=== PATIENT | male | born 1950 | race Caucasian/White ===

== ENCOUNTER → 2017-06-29 | Day surgery (SDC) | payer MEDICARE ==
[2017-06-28 10:05] VITALS: BMI 26.2
[~2017-06-29] MED LIST: Iopamidol-M 200 41% 20 ML VIAL ONE
[2017-06-29 07:20] VITALS: TEMP 97.8
--- NOTE | 2017-06-29 09:14 | RAD ---
LUMBAR SPINE SERIES FOUR VIEWS INCLUDING FLEXION AND EXTENSION: Comparison: 12-13-14 History: Back pain. FINDINGS: Dorsal column stimulator is noted. Post-operative changes with bilateral pedicle screws at L4-5 and S 1 are noted. There is retrolisthesis of L3 on L4 associated with severe degenerative disc narrowing. This retrolisthesis does not appear to change between the flexion and extension views. The overall ap pearance appears fairly stable as compared to the prior exam. IMPRESSION: Stable exam. POS: [facility]
--- NOTE | 2017-06-29 10:14 | CT ---
POST MYELOGRAM LUMBAR SPINE CT: HISTORY: Lumbar radiculopathy. Lumbar fusion. COMPARISON: None. TECHNIQUE: A lumbar spine CT is performed after intrathecal contrast administration. Sagittal and coronal refor matted images are submitted for interpretation. FINDINGS: There is an incompletely evaluated dorsal column stimulator with the leads entering the central spina l canal at approximately the T12-L1 level. There is vacuum disk phenomenon at L1-L2, L2-L3, and L3-L4. There is 1.8 mm of retrolisthesis of L1 upon L2. There is 6 mm of retrolisthesis of L3 upon L4. There is 4.4 mm of retrolisthesis of L4 upo n L5. There are bilateral transpedicular screws at L4, L5, and S1. No perihardware lucency. Bone g raft material along the posterior elements of L4, L5, and S1 are noted. There is symmetric attenuation of the psoas muscles. The visualized solid organs are unremarkable. The conus medullaris terminates at the superior aspect of L1. T12-L1: No significant central canal stenosis. The neural foramina are patent. L1-L2: Vacuum disk phenomenon. Generalized disk bulge with a component in the right subarticular zo ne. Disk material abuts but does not obscure the traversing right L2 nerve root. Moderate bilateral foraminal narrowing. Overall, there is mild central canal stenosis. L2-L3: Vacuum disk phenomenon. There is moderate to severe loss of disk space height. Generalized disk bulge, ligamentum flavum thickening, and facet hypertrophy result in moderate central canal sten osis. Moderate right and moderate to severe left foraminal narrowing. L3-L4: Vacuum disk phenomenon. Posterior decompressive laminectomy defects. There is posterior marlys ment hypertrophy, along with a generalized disk bulge, that results in moderate to severe central can al stenosis. Severe bilateral foraminal narrowing. L4-L5: There is a posterior decompressive laminectomy defect. No high grade central canal stenosis. Moderate bilateral foraminal narrowing. L5-S1: Posterior decompressive laminectomy defect. No significant posterior disk abnormality. No s ignificant central canal stenosis. Mild bilateral neural foraminal narrowing. IMPRESSION: 1. Post surgical and degenerative changes of the lumbar spine, as above. 2. There is significant central canal stenosis at the L3-L4 level. POS: [facility]
--- NOTE | 2017-06-29 10:47 | RAD ---
LUMBAR SPINE MYELOGRAM INDICATION: Low back pain, lumbar radiculopathy bilateral lower extremities. PROCEDURE: After informed consent had been obtained, the patient was escorted to the interventional suite and pl aced on the procedural table. [facility] imaging was performed. The patient was placed into a prone posi tion. Skin on the low back was then prepped and draped in the standard sterile fashion and topical a nd regional soft tissue anesthesia was achieved with 1% lidocaine and sodium bicarbonate. L4-5 left posterior paramidline approach was selected, and a 22 gauge needle was uneventfully advanced into th e thecal sac with clear color CSF. Subsequently, 10 cc Isovue M200 was instilled into the thecal sac under real time fluoroscopy. Appropriate opacification of thecal sac demonstrated with imaging stor ed for confirmation. The needle was then removed from the patient. The patient tolerated the proced ure well and was then transferred to CT to undergo subsequent myelogram. Reference separate report f or full details. RADIATION EXPOSURE DATA: Less than 0.1 minute intermittent fluoroscopy. IMPRESSION: Technically successful lumbar myelogram as detailed above. POS: [facility]
== END ==
LOC: RAD 06:56
PROVIDERS: ATTEND Surgery
PROC: B01B1ZZ Fluoroscopy of Spinal Cord using Low Osmolar Contrast (ICD-10-PCS; principal; 2017-06-29)
DX: M54.16 Radiculopathy, lumbar region (principal); M48.061 Spinal stenosis, lumbar region without neurogenic claudication; Z98.1 Arthrodesis status; Z79.82 Long term (current) use of aspirin; Z79.899 Other long term (current) drug therapy
CPT/HCPCS: 62304; 72120; 72132

== ENCOUNTER 2017-08-04 08:42 | Outpatient (CLI) | payer MEDICARE ==
[2017-08-04 10:27] LABS: Hemoglobin 14.7 g/dL (14.0-18.0); Mean Corpuscular Hemoglobin 31.8 pg (27.0-31.0); Mean Corpuscular Volume 93.6 fl (80.0-94.0); Mean Platelet Volume 6.3 fL (7.4-10.4); Platelet Count 298 thou/uL (130-400); RBC Distribution Width 12.2 % (11.5-14.5); Red Blood Cell (RBC) Count 4.64 mill/uL (4.70-6.10); White Blood Cell (WBC) Count 8.5 thou/uL (4.8-10.8)
[2017-08-04 10:33] LABS: INR-International Normal Ratio 0.9; PTT 31.4 SEC (22.9-36.1); Prothrombin Time 12.6 SEC (12.0-14.7)
[2017-08-04 10:50] LABS: Anion Gap 16 mmol/L (10-20); BUN (Urea Nitrogen) 10 mg/dL (8.4-25.7); Calc. Creatinine Clearance 0 mL/min (70-130); Calcium 9.7 mg/dL (7.8-10.44); Carbon Dioxide 23 mmol/L (23-31); Chloride 104 mmol/L (98-107); Estimated GFR-MDRD Greater than 90; Glucose 79 mg/dL (80-115); Potassium 3.5 mmol/L (3.5-5.1); Sodium 139 mmol/L (136-145)
--- NOTE | 2017-08-04 16:31 | EKG ---
Test Reason : Blood Pressure : / mmHG Vent. Rate : 071 BPM Atrial Rate : 071 BPM P-R Int : 166 ms QRS Dur : 102 ms QT Int : 400 ms P-R-T Axes : 069 003 019 degrees QTc Int : 434 ms Poor data quality, interpretation may be adversely affected Normal sinus rhythm Cannot exclude Septal infarct , age undetermined Abnormal ECG Confirmed by DOMONIQUE TOVAR ([id number]) on 08/04/2017 4:31:03 PM Referred By: BIGG Confirmed By:DOMONIQUE TOVAR
== END 2017-08-04 08:43 | disposition home or self-care (01) ==
LOC: LABBT 08:42
PROVIDERS: ATTEND Surgery
DX: Z01.818 Encounter for other preprocedural examination (principal); M48.062 Spinal stenosis, lumbar region with neurogenic claudication; M54.16 Radiculopathy, lumbar region; R94.31 Abnormal electrocardiogram [ECG] [EKG]
CPT/HCPCS: 80048; 85027; 85610; 85730; 93005; 93010

== ENCOUNTER 2017-08-09 07:33 | Day surgery (SDC) | payer MEDICARE ==
[2017-08-04 08:56] VITALS: BMI 25.8
[2017-08-09] MEDS ORDERED: CEFAZOLIN/Water 2 GM/20 ML SYRINGE ONE (09:29)
[2017-08-09] MEDS ORDERED: Midazolam HCl 2 mg/2 ml Vial ONE ×2 (10:20→12:18)
[2017-08-09] MEDS ORDERED: Fentanyl 250 MCG/5 ML VIAL ONE (12:52)
[2017-08-09] MEDS ORDERED: Phenylephrine HCL 10 MG/ML VIAL ONE (12:53)
[2017-08-09] MEDS ORDERED: Bacitracin Zinc Ointment 30 gm TUBE ONE (12:55)
[2017-08-09] MEDS ORDERED: Thrombin 5000 UNITS/5 ML VIAL ONE (12:55)
[2017-08-09] MEDS ORDERED: Sodium Chloride 0.9% 10 ML ONE (12:56)
[2017-08-09] MEDS ORDERED: Promethazine HCl 25 MG/ML VIAL IM PRN ×2 (15:09→15:41)
[2017-08-09] MEDS ORDERED: Promethazine HCl 25 MG/ML VIAL SLOW IVP PRN (15:09)
[2017-08-09] MEDS ORDERED: Ondansetron HCl/PF 4 MG/2 ML Vial IVP PRN (15:09)
[2017-08-09] MEDS ORDERED: Ondansetron HCl/PF 4 MG/2 ML Vial ONE ×2 (15:12→16:08)
[2017-08-09] MEDS ORDERED: Fleet Enema 133 ML BOT PR PRN (15:41)
[2017-08-09] MEDS ORDERED: Acetaminophen 325 MG TAB PO PRN (15:41)
[2017-08-09] MEDS ORDERED: Bisacodyl 10 MG SUPP PR PRN (15:41)
[2017-08-09] MEDS ORDERED: Mag-Al 1200 mg/1200 mg/30 ML UDCUP PO PRN (15:41)
[2017-08-09] MEDS ORDERED: Milk Of Magnesia 30 ML UDCUP PO PRN (15:41)
[2017-08-09] MEDS ORDERED: Acetaminophen/Codeine 30-300mg Tablet PO PRN (15:41)
[2017-08-09] MEDS ORDERED: HYDROcodone/Acetaminophen 7.5/325 mg Tablet PO PRN (15:41)
[2017-08-09] MEDS ORDERED: EPINEPHrine 1 MG/10 ML Abboject SYRINGE IVP PRN (15:43)
[2017-08-09] MEDS ORDERED: Fentanyl 100 MCG/2 ML VIAL ONE ×2 (15:49→16:12)
[2017-08-09] MEDS ORDERED: Lidocaine 1% PF 5 ML VIAL ONE (16:08)
[2017-08-09] MEDS ORDERED: Glycopyrrolate 0.2 MG/ML 5 ML SYRINGE ONE (16:08)
[2017-08-09] MEDS ORDERED: PHENYLEPHRINE-NS 100 MCG/ML 10 ML SYRINGE ONE (16:08)
[2017-08-09] MEDS ORDERED: PROPOFOL 200 MG/20 ML VIAL ONE (16:08)
[2017-08-09] MEDS ORDERED: Ketorolac Tromethamine 30 MG/ML VIAL ONE (16:08)
[2017-08-09] MEDS ORDERED: CEFAZOLIN/Water 2 GM/20 ML SYRINGE SLOW IVP SCH (18:00)
[2017-08-09] MEDS: HYDROcodone/Acetaminophen 10/325 mg Tablet PO PRN (18:08)
[2017-08-09] MEDS: Sodium Chloride 0.9% 1,000 ML IV SCH (18:12)
--- NOTE | 2017-08-09 19:12 | OP ---
OR: 12. WOUND TYPE: Type 1 wound. SURGEON: Campbell Kwan M.D. [employer] OPERATOR: Jose D Santana PA-C. PREPROCEDURE DIAGNOSIS: L2-L3, L3-L4 stenosis with history of multiple lumbar spine surgeries, also with spinal cord stimulator in place. POSTPROCEDURE DIAGNOSIS: L2-L3, L3-L4 stenosis with history of multiple lumbar spine surgeries, also with spinal cord stimulator in place. PROCEDURES PERFORMED: L2-L3, L3-L4 laminectomies, partial facetectomies and foraminotomies over the L2, L3, and L4 nerve roots. DESCRIPTION OF PROCEDURE: After informed consent was obtained from the patient, the patient was brou ght to OR 12. Proper patient pause and identification was carried out. He was placed in excellent g eneral endotracheal anesthesia and positioned prone on the operating room table. All appropriate poi nts were padded. The prior lumbar wound was identified in a cephalad portion of the wound. A small portion was drawn out and incorporated for the, L2, L3, L4 surgery. Following localization film and proper patient pause and identification, sterile cleansing, preparation and draping, the wound was th en opened with a combination of sharp, monopolar and blunt dissection proceeded down to the level of the spinal cord stimulator wires and leads and these were mobilized gently out of the way. There was no violation of the leads. Localization film then confirmed our area of interest following exposure of L2, L3, and L4. We then performed an L2, L3, and L4 laminectomies, partial facetectomies and for aminotomies. There was exuberant scar tissue in the region of the L3-L4. We had an excellent candi ctomy and decompression at L2-L3, L3-L4. I was pleased with our decompression. There was no spinal fluid leak. The wound was then copiously irrigated. A spinal cord stimulator wires detect, gently t ucked into a safe place to avoid any migration and the wound closed in anatomic layers following the sprinkling of vancomycin powder and hemostasis. The patient then emerged from anesthesia.
[2017-08-09] MEDS: Morphine 4 MG/ML VIAL SLOW IVP PRN ×2 (20:18→22:54)
[2017-08-09] MEDS: Simvastatin 20 MG TAB PO SCH (20:19)
[2017-08-09] MEDS: CEFAZOLIN/Water 2 GM/20 ML SYRINGE SLOW IVP SCH (21:28)
[2017-08-10] MEDS: Morphine 4 MG/ML VIAL SLOW IVP PRN ×5 (00:01→13:32)
[2017-08-10] MEDS: tiZANidine HCl 4 MG TAB PO PRN ×2 (00:02→07:49)
[2017-08-10] MEDS: traMADol HCl 50 MG TAB PO PRN (02:18)
[2017-08-10] MEDS: HYDROcodone/Acetaminophen 10/325 mg Tablet PO PRN ×2 (04:30→20:51)
[2017-08-10] MEDS: CEFAZOLIN/Water 2 GM/20 ML SYRINGE SLOW IVP SCH (05:06)
[2017-08-10] MEDS: Sodium Chloride 0.9% 1,000 ML IV SCH ×2 (05:10→09:32)
[2017-08-10] MEDS: Amlodipine 5 MG TAB PO SCH (09:30)
[2017-08-10] MEDS: Calcium Carbonate 600 MG TAB PO SCH (09:30)
[2017-08-10] MEDS: Metoprolol Tartrate 100 MG TAB PO SCH (09:31)
[2017-08-10] MEDS: Lisinopril/Hydrochlorothiazide 20 mg/12.5 mg Tablet PO SCH (09:31)
[2017-08-10] MEDS: Furosemide 20 MG TAB PO SCH (09:31)
--- NOTE | 2017-08-10 11:35 | EKG ---
Test Reason : Blood Pressure : / mmHG Vent. Rate : 082 BPM Atrial Rate : 082 BPM P-R Int : 154 ms QRS Dur : 098 ms QT Int : 366 ms P-R-T Axes : 067 023 034 degrees QTc Int : 427 ms Normal sinus rhythm Septal infarct , age undetermined Abnormal ECG When compared with ECG of 04-AUG-2017 09:38, Septal infarct is now Present Confirmed by DR. Solis PATTERSON ([id number]) on 08/10/2017 11:35:15 AM Referred By: NASRIN Confirmed By:DR. Solis PATTERSON
--- NOTE | 2017-08-10 12:00 | RAD ---
RADIOGRAPH CHEST 1 VIEW: Date: 08-10-17 Time: 9:48 a.m. HISTORY: 66-year-old male. Evaluate spinal cord stimulator lead placement. COMPARISON: 11-25-15 FINDINGS: Previously, there were double spinal cord stimulator leads with tips at the T9 level. Now, there is a single such lead with tip at the T8-9 level. Again noted are the left hilar surgical clips. Ill-defi suzan, faint, right upper lobe opacity is again noted, of uncertain etiology. Faint focal ill defined d ensities, probably chronic, also demonstrated in the right mid lung zone, and bilateral lower lung zo alfreda. No cardiomegaly or pulmonary edema. No pulmonary vascular engorgement. No pneumothorax. Image is overexposed. IMPRESSION: 1. Single dorsal column spinal cord stimulator lead at T8-9 level. 2. Right upper lobe pulmonary opacity is unchanged since 11-25-15. BRODY POS: [facility]
[2017-08-10] MEDS ORDERED: Iopamidol 300 61% 30 ML VIAL ONE (12:04)
--- NOTE | 2017-08-10 16:16 | RAD ---
FOUR VIEWS CERVICAL SPINE: 08/10/17 HISTORY: Status post laminectomy syndrome of the lumbar spine. Status post cervical fusion change. FINDINGS: There is an anterior fusion plate with transvertebral body screw at C4, C5, C6, and C7. There is fusi on of the C4-C5, C5-C6, and C6-C7 disc space. Mild to moderate degenerative changes of the cervicotho racic junction is noted. There is anterolisthesis of C3 upon C4 with prominent anterior osteophyte formation. No obvious fract ures. There is diffuse bone demineralization. Left greater than right facet hypertrophy noted at the upper cervical spine. 2.6 mm of anterolisthesis of C3 upon C4 in the neutral position. Upon flexion there is 4.7 mm of ante rolisthesis of C3 upon C4. Upon extension, there is 2.7 mm of anterolisthesis of C3 upon C4. IMPRESSION: 1. Diffuse bone demineralization. 2. Anterolisthesis of C3 upon C4 with significant motion upon flexion and extension. 3. Cervical fusion changes as described above. POS: [facility]
--- NOTE | 2017-08-10 16:40 | CT ---
CT CERVICAL SPINE WITH CONTRAST (CT CERVICAL MYELOGRAM): DATE: 08-10-17 History: 66-year-old male with cervical spondylosis and signs of cervical spinal cord compression. FINDINGS: Anterior metallic plate and screws at C4, C5, C6 and C7. Solid successful ankylosis between the verte bral bodies from C4 through C7. C1-2: No high grade central stenosis. C2-3: Thickened ligamentum flavum encroaches upon the posterior aspect of the spinal canal. Shallow, broad-based anterior extradural soft tissue density material mildly encroaches upon the anterior aspe ct of the thecal sac. Overall moderate central spinal canal stenosis. Moderate to severe right degene rative facet changes. Severe left degenerative facet changes. Moderate right neural foraminal stenosi s. Moderate to severe left neural foraminal stenosis. Disc space maintained. C3-4: Disc space maintained. Grade I anterolisthesis of C3 on C4 due to bilateral degenerative facet disease, mild to moderate on the right, and severe on the left. Diffuse disc bulge posteriorly displa abisai, and flattens the spinal cord, causing severe central canal stenosis. Moderate sized bilateral un cinate process osteophytes and bilateral facet hypertrophy, result in severe bilateral neural foramin al stenosis, right worse than left. C4-5: No high grade central stenosis. No right neural foraminal stenosis. Moderate left neural forami nal stenosis. Essentially normal right facet joint except for small osseous bridges across the joint space. Severe hypertrophy of the left facet complex which has solid ankylosis. C5-6: No central stenosis. Bilateral uncinate process osteophytes, moderately large on the right and moderate on the left. Moderate to severe bilateral neural foraminal stenosis, left worse than right. Essentially normal bilateral facet joints except for small osseous bridges across the joint space. C6-7: Small left paracentral focal extradural density indents the left ventral aspect of the thecal s ac. Although it does not contact the spinal cord, the left ventral aspect of the spinal cord is nadia ened. The overall degree of central spinal canal stenosis is mild. Moderate sized bilateral uncinate process osteophytes. Moderate to severe bilateral neural foraminal stenosis. Mild bilateral degenerat lisa facet changes. Small osseous bridges across the bilateral facet joints. C7-T1: Moderate disc space narrowing. Severe bilateral degenerative facet changes cause a grade I ant erolisthesis of C7 on T1. This spondylolisthesis, together with thickened ligamentum flavum and broad based disc bulge result in moderate to severe central spinal canal stenosis. There is effacement of fat in the bilateral neural foramina, which could be due to scar tissue or lateral disc herniations. This results in severe bilateral neural foraminal stenosis. The degree of bony neural foraminal steno sis is moderate on the right and severe on the left. IMPRESSION: 1. Status post anterior cervical discectomy and fusion with successful ankylosis at C4-5-6-7. 2. At C3-4 there is severe left degenerative facet hypertrophy causing grade I spondylolisthesis, plu s diffuse disc bulge, causing severe central spinal canal stenosis, flattening the spinal cord. 3. Severe bilateral facet osteoarthrosis and moderate degenerative disc disease at C7-T1, with a grad e I spondylolisthesis, with associated moderate to severe central spinal canal stenosis, and severe b ilateral neural foraminal stenosis, including soft tissue density material in the bilateral neural fo ramina which could be scar tissue or lateral disc herniations. 4. Other levels of severe facet osteoarthrosis, especially on the left side. POS: [facility]
--- NOTE | 2017-08-10 18:19 | CT ---
CT THORACIC SPINE WITH CONTRAST (CT thoracic myelogram) 08/10/17 HISTORY: 66-year-old male with thoracic spine pain. Symptoms of cord compression. FINDINGS: ACDF hardware at multiple levels in the cervical spine, with the lowest anterior screws at C7. Thorac ic vertebral body heights are maintained. At C7-T1, there is severe bilateral degenerative facet disease causing grade I anterolisthesis of C7 on T1. There is moderate to severe central spinal canal stenosis at C7-T1. There is complete oblitera tion of the bilateral C7-T1 neural foraminal fat, which could be due to disc herniations and/or scar tissue. No high grade central spinal canal stenosis is identified from T1-2 through T9-10. Small focal disc p rotrusions are present at various levels encroaching upon the anterior aspect of the spinal canal lef t paracentrally and right paracentrally at various levels. At T10-11, there is mild to moderate thecal sac stenosis due to soft tissue density material in the a nterior epidural space centrally and bilaterally paracentrally. At T11-12, there is also moderate thecal sac stenosis due to soft tissue density material in the post erior epidural space and anterior epidural space. At T12-L1, there is also moderate thecal sac stenosis due to soft tissue density material in the ante rior epidural space and posterior epidural space. At L1-2, there is severe thecal sac stenosis due to what appears to be prominent diffuse disc bulge a nd ligamentum flavum thickening, with severe partial effacement of CSF signal, incompletely imaged. There is no high grade bony central spinal canal stenosis at any level. There are dorsal column spinal cord stimulator double leads entering the spinal canal at T12-L1, and ascending to the T8 level. IMPRESSION: 1. Severe bilateral facet osteoarthrosis, grade I spondylolisthesis, and degenerative disc disea se, at C7-T1, where there is severe bilateral neural foraminal stenosis and moderate to severe centra l spinal canal stenosis. 2. Severe central spinal canal stenosis at L1-2 in the upper lumbar spine, incompletely imaged. 3. Mild to moderate thecal sac stenosis (but no bony central spinal canal stenosis) at several l evels in the lower thoracic spine. 4. Spinal cord stimulator leads. 5. No high grade central spinal canal stenosis in the rest of the thoracic spine. POS: [facility]
--- NOTE | 2017-08-10 18:28 | RAD ---
MYELOGRAM CERVICAL MYELOGRAM THORACIC: 08/10/17 HISTORY: 66-year-old male with signs of cervical spinal cord compression and thoracic spine pain. TECHNIQUE: Signed informed consent obtained. Patient placed prone on fluoroscopy table. Skin over lower back pre pped and draped in the usual sterile fashion. 25 gauge needle used to apply buffered lidocaine superf icially and deeply. 22 gauge spinal needle advanced from midline approach through the laminectomy def ect at L4-5. Total of 10 mL of Isovue M300 injected intrathecally under brief, intermittent fluorosco py. Needle removed. Although the patient tolerated the needle placement and the thecal contrast injec tion well, the patient was in severe pain from lying prone for the duration of the procedure. The tab le was tilted prone Trendelenburg, to allow the contrast material to flow into the thoracic spinal ca nal and cervical spinal canal. Patient was then taken to CT. No complications. IMPRESSION: 1. Successful myelogram. 2. See separate reports of the thoracic spine and cervical spine myelograms. POS: [facility]
--- NOTE | 2017-08-10 19:58 | PRG ---
DATE OF SERVICE: 08/10/2017 Jose D Santana PA-C dictating for Dr. Campbell Kwan. Mr. Marin is now postoperative day #1, having undergone L2 to L4 laminectomy. The patient has spi nal cord stimulator placed and throughout the evening has had supposed misfirings of his stimulator r esulting in significant mid upper back pain, neck pain, bilateral arm pain in a nondermatomal distrib ution and chest pain. EKG was done that showed stable septal infarct of unknown age. When asked abo ut pain symptoms, he stated that this happened roughly an hour after the surgery while he was in the recovery room. In regards to the patient's back and bilateral lower extremity symptoms, he states th at these are significantly improved postoperatively. He states he felt much stronger on 2 nodes in t he shock-like sensations. He is very pleased with his outcome postoperatively. He has good strength in the bilateral lower extremities and he is able to walk with a non-antalgic gait while leaning on an IV pole. We have been in contact with the patient's spinal cord stimulator wrapped and will work on attempting to remedy that. We have attempted to turn off his spinal cord stimulator, but this has been unhelpful in relieving his symptoms. We will also discuss his case with Dr. Deshawn Santoyo. It should be noted that this is a late dictation. The patient was actually seen this morning at 7: 30 a.m.
[2017-08-10] MEDS: Simvastatin 20 MG TAB PO SCH (20:51)
[2017-08-11] MEDS: Morphine 4 MG/ML VIAL SLOW IVP PRN (01:44)
--- NOTE | 2017-08-11 02:29 | CON ---
DATE OF CONSULTATION: 08/10/2017 ROOM #: [id number] CONSULTING PHYSICIAN: Dr. Campbell Kwan. REASON FOR CONSULTATION: Spinal cord stimulation, malfunction. HISTORY OF PRESENT ILLNESS: Patient is a 66-year-old patient known to me from an outpatient clinic a nd implantation of spinal cord stimulation system in 2016 for post-laminectomy syndrome. The stimula tor was efficacious. Over the ensuing 2 years, he developed significant stenosis discovered by lumba r myelogram showing severe L2-L4 stenosis, and yesterday, the patient had a decompressive laminectomy by Dr. Campbell Kwan. The next day postoperatively and noted in the recovery room was increased ting ling and shock-like sensations across his upper back and this was thought to be due to firing of his spinal cord stimulation system. A small business sales representative was called, the stimulator was interrogated and tho ught to shut off, but these sensations persisted. The patient was sent down to my office and the sys tem was examined under fluoroscopic guidance and the patient was examined. On questioning, he states that the sensations are actually primarily in the upper chest and clavicle region. They radiate gali n both the arms and it occurs primarily when he turns his head from [id number] or particularly when he looks up. Indeed, he can only assume a neutral position and any extension at all increases the s hocking-like sensation. These sensations are not in the thoracic area typical for a spinal cord stim ulation system implanted for back and bilateral lower extremity pain. PAST MEDICAL HISTORY: Significant for numerous lumbar spine surgeries and an extensive C5 through C7 fusion by Dr. Junior Desouza many years ago. SOCIAL HISTORY: Long time smoker, but abstained for unknown period of time about 5 years. REVIEW OF SYSTEMS: Negative for recent nausea, vomiting, fever, or chills. The patient is status po st laminectomy. PHYSICAL EXAMINATION: GENERAL: The patient is alert and oriented. He was transferred to my suite in a wheelchair, but was able to ambulate. We were able to transport him or transfer him to the floor table, but during this time, he had several of these shock-like sensations noted in his chief complaint. He was placed pro ne. Examination of the spinal cord stimulation under fluoroscopic guidance revealed the right lead t o have migrated caudally and the left lead to be at the junction of T7-T8, which is a physiologic loc ation and proper location for spinal cord stimulation achieving stimulation in the back and bilateral legs. The right leg lead has migrated caudally. Best I can tell on the fluoroscopic images, all wi res in the system were intact on the fluoroscopic visualization with no obvious ligation of the spina l cord stimulation, electrode arrays, or any of the wires. Then sat the patient up and completed the examination with sitting. A cervical spine was examined. He has palpable tenderness throughout the cervical spine, paraspinous is especially in the upper cervical spine region. There is trapezius an d levator tenderness bilaterally. The range of motion is severely limited due to the shock-like sens ations. Lhermitte's is negative; however, extension of the cervical spine and indeed even assuming a neutral position causes the shock-like sensation suggestive of spinal cord impingement in the cervic al spine region. Reflexes were 2+ throughout the cervical spine. Lopez's is negative. CHEST: The patient's chest exam reveals no palpable tenderness throughout the chest or chest wall. Chest was clear. HEART: Regular. ABDOMINAL EXAM: Soft, nontender, nondistended. BACK EXAM: The dressing over the laminectomy was noted. It was not removed and the incision was not examined. EXTREMITIES: Lower extremity reflexes were 1/4. There was no clonus. No focal deficits. IMPRESSION: 1. Spinal cord impingement, cervical spine. I believe this is the source of the patient's tingling sensation and indeed it likely has nothing to do with the spinal cord stimulation system. 2. Lead migration of his spinal cord stimulation system. The right lead has migrated caudally. I b elieve the system should be interrogated and assessed again for proper programming. I did discuss wi th the patient regarding the efficacy of this spinal cord stimulation and he insisted that it was a " lifesaver for him." We will therefore make every attempt to make it usable or revise it if necessary . PLAN: The patient will need a cervical and thoracic spine imaging, myelogram is indicated. I did di scuss with Dr. Kwan, who recommends cervical and thoracic myelogram with thoracic plain imaging to evaluate possible abnormal motion, especially above the level of his fusion. Further recommendations after review of his imaging. No medication changes were made.
[2017-08-11] MEDS: Sodium Chloride 0.9% 1,000 ML IV SCH ×2 (06:18→20:45)
[2017-08-11 08:28] LABS: BUN (Urea Nitrogen) 7 mg/dL (8.4-25.7); Calc. Creatinine Clearance 127 mL/min (70-130); Estimated GFR-MDRD Greater than 90
[2017-08-11] MEDS: tiZANidine HCl 4 MG TAB PO PRN ×3 (08:57→23:42)
[2017-08-11] MEDS: traMADol HCl 50 MG TAB PO PRN ×3 (08:58→23:41)
[2017-08-11] MEDS: Furosemide 20 MG TAB PO SCH (09:00)
[2017-08-11] MEDS: Amlodipine 5 MG TAB PO SCH (09:00)
[2017-08-11] MEDS: Calcium Carbonate 600 MG TAB PO SCH (09:00)
[2017-08-11] MEDS: Lisinopril/Hydrochlorothiazide 20 mg/12.5 mg Tablet PO SCH (09:00)
[2017-08-11] MEDS: Metoprolol Tartrate 100 MG TAB PO SCH (09:01)
--- NOTE | 2017-08-11 10:34 | CT ---
CT CHEST WITH IV CONTRAST: Date: 08/11/17 HISTORY: Lung mass. Previous lung cancer. COMPARISON: Chest radiograph dated 08/10/17. PET scan dated 09/22/10. FINDINGS: Centered at the anterior aspect of the right upper lobe is a lobulated, heterogeneous soft tissue den sity mass measuring 3.5 cm length x 5.8 cm width x 3.6 cm depth. It demonstrates spiculated margins w ith small satellite lesions and abuts the anterior and superior pleura. A 1.5 cm oval nodule is prese nt within the superior segment right lower lobe. Lungs are hyperinflated. Scarring is present at each lung base. Tiny patchy nodular opacity is presen t at the left posterolateral lung base. Subcarinal lymph node measures up to 1.1 cm. Right hilar lymph node is 1.5 cm greatest diameter. Aly tional smaller lymph nodes are scattered about the mediastinum. There is calcification in the arteria l structures. Bovine origin of the great vessels from the aortic arch. Prominent degenerative changes lumbar spine. IMPRESSION: 1. Large, spiculated right upper lobe mass with satellite lesions. Main mass abuts the anterior and apical pleura. Recurrent neoplasm is the favored diagnosis. Please consider pulmonary medicine evalua tion. 2. Small, hazy nodular densities involving each lower lobe. 3. While the detailed mediastinal lymph nodes are not overtly enlarged, they are significantly large r than prior PET scan from 09/22/10, and neoplastic involvement is suspected. 4. Atherosclerosis. POS: [facility]
[2017-08-11] MEDS: HYDROcodone/Acetaminophen 10/325 mg Tablet PO PRN ×2 (11:17→20:45)
--- NOTE | 2017-08-11 12:25 | PRG ---
DATE OF SERVICE: 08/11/2017 SUBJECTIVE: Mr. Marin is postoperative day #2 from uneventful lumbar laminectomy L2-L4. He has a history of multiple spinal surgeries and a spinal cord stimulator in place. Yesterday, the patient noticed that he was having electrical shocks essentially into the chest region in the upper extremiti es. These would come in at intermittent periods that were not overtly predictable although following evaluation with Dr. Santoyo, he was concerned that perhaps the patient had a component of cervic al myelopathy and this was brought on when he basically cervically flexed or extended. The patient h as a history of prior C4-C7 fusion. No abnormal position issues during surgery and the patient was k ept in his normal position prone in regards to his cervical spine and again his surgery was uneventfu l. I also identified at the time of surgery, his spinal cord stimulator wires and these were protect ed and gently tucked to the left as I completed the L2-L3, L3-L4 laminectomies. Nevertheless, due to concern of the patient's these electrical sensations he was having and given the fact that he was al ready mobilizing and had complete relief of his leg pain. I felt as if the surgery was a success; ariana rothman, again Dr. Santoyo and I were concerned was a spinal cord stimulator not working or perhaps was there is evidence of cervical stenosis. As such, we arranged for a CT myelogram of the cervical and thoracic spine and it demonstrated that compared to 2016, two spinal cord stimulator leads remai suzan extradural. One remained at approximately T8, the other at T11 and had inferiorly migrated. Thi s could have been during the surgery or could have been at any time over the last 2 years, but still would result in low back and leg coverage. The spinal cord stimulator was interrogated by [employer] and he stated he was unable to turn it off. Dr. Santoyo felt that perhaps stimu lator was working fine, but that the patient's electrical sensations were coming from cervical stenos is in fact cervical myelogram demonstrated fusion from C4-C7 but moderate to severe stenosis at C3-C4 and moderate stenosis at C7-T1. There was also an associated subluxation. It was quite mild at C3- C4. We placed the patient in collar and the patient states since the myelogram he has had no further electrical shocks, but now he feels as if his legs are weaker. I suspect this is due to just the my elogram and essentially injecting dye into recent operated and compressed nerve roots. I do not susp ect that this is worsening of the myelopathy necessarily. We will interrogate the stimulator more to day and unfortunately the patient was found to have a large mass in his right upper lobe and he is go ing for CT scan today as well. He has a history a partial lobectomy and obviously the concern here i s recurrent neoplasm. We will continue to mobilize the patient, keep him in a C-collar at this point .
[2017-08-11] MEDS ORDERED: ISOVUE-370 76%-LOCM 1 ML ONE (13:21)
[2017-08-11] MEDS: Simvastatin 20 MG TAB PO SCH (20:45)
[2017-08-12] MEDS: Morphine 4 MG/ML VIAL SLOW IVP PRN ×2 (02:00→07:22)
[2017-08-12] MEDS: HYDROcodone/Acetaminophen 10/325 mg Tablet PO PRN ×2 (03:38→10:02)
[2017-08-12] MEDS: Furosemide 20 MG TAB PO SCH (10:01)
[2017-08-12] MEDS: tiZANidine HCl 4 MG TAB PO PRN (10:01)
[2017-08-12] MEDS: Amlodipine 5 MG TAB PO SCH (10:01)
[2017-08-12] MEDS: Lisinopril/Hydrochlorothiazide 20 mg/12.5 mg Tablet PO SCH (10:02)
[2017-08-12] MEDS: Metoprolol Tartrate 100 MG TAB PO SCH (10:02)
[2017-08-12] MEDS: Calcium Carbonate 600 MG TAB PO SCH (10:02)
[2017-08-12] MEDS: Sodium Chloride 0.9% 1,000 ML IV SCH (13:45)
[2017-08-12 15:26] VITALS: BP 139/68; TEMP 98
--- NOTE | 2017-08-12 20:42 | PRG ---
DATE OF SERVICE: 08/12/2017 SUBJECTIVE: Mr. Marin is postoperative day #3 from lumbar laminectomy. We also obtained a CT mye logram of the cervical and thoracic spine and he has moderate to severe stenosis at C3-C4 and moderat e stenosis at C7-T1. There is a listhesis at C3-C4 that may contribute to increased stenosis, althou gh the patient states that the dysesthesias in the electrical shocks that he had into his neck and up per extremities and thorax has essentially resolved. He is in a collar and he feels this is fitting well. His strength is good in his upper and lower extremities and he states the pain that he had in his legs yesterday likely due to the myelogram dye, irritating his nerve roots, causing a radiculitis has improved. He has a right upper lung mass and we have consulted Pulmonary Medicine. If they are not able to see him today, then we have to arrange some sort of an outpatient follow up with him. T his is obviously likely a lung cancer. He has a history of a prior left-sided partial lobectomy for lung cancer. No longer smokes. We will dismiss him today.
--- NOTE | 2017-08-12 20:50 | CON ---
DATE OF CONSULTATION: 08/12/2017 SERVICE: Pulmonary Medicine. REASON FOR CONSULTATION: Pulmonary mass. HISTORY OF PRESENT ILLNESS: The patient is a 66-year-old white male with past medical history significant for nonsmall cell lung cancer on the left. He underwent a lobectomy. This was multiple years ago. He returned to his usual state of health, but always had a little bit of dyspnea when getting around. That being said, he is not requiring any oxygen. He was in the hospital for chronic pain issues. He had a problem with the stimulator. This problem has been corrected. On the imaging that occurred during the hospital stay, there is incidentally discovered right upper lobe pulmonary mass which has never been investigated previously. He denies any cough, changes to his weight, night sweats. He is not bringing up any sputum and does not report any hemoptysis within the last year. PAST MEDICAL HISTORY: 1. Hypertension. 2. Dyslipidemia. 3. Benign prostate hyperplasia. 4. History of nonsmall cell lung cancer. 5. Coronary artery disease. PAST SURGICAL HISTORY: 1. Lumbar surgery x3. 2. Spinal cord stimulator placement. 3. Lobectomy on the left for nonsmall cell lung cancer. ALLERGIES: No known drug allergies. MEDICATIONS: List of his inpatient medications were reviewed. No specific updates were made. FAMILY HISTORY: Noncontributory. SOCIAL HISTORY: He quit smoking roughly 2 years ago. Prior to that, he has a greater than [id number] history of smoking. He is . He denies any alcohol or illicit drugs. He has no exposure to chemicals, dust, asbestos or tuberculosis. REVIEW OF SYSTEMS: General, head, ears, eyes, nose, throat, cardiovascular, respiratory, GI, , musculoskeletal, neurologic and skin is negative except as mentioned in the HPI. PHYSICAL EXAMINATION: VITAL SIGNS: Afebrile, pulse 77, blood pressure 97/57, respirations 16, saturation 93% on room air. GENERAL: The patient is awake, alert, in no apparent distress. LUNGS: Excellent air entry with no prolonged expiratory phase, wheezing, rhonchi, or crackles present. HEART: Normal rate, regular. ABDOMEN: Soft, nontender, nondistended. Bowel sounds are positive. MUSCULOSKELETAL: No cyanosis or clubbing. There is trace pitting in the bilateral lower extremities. NEUROLOGIC: Grossly nonfocal. LABORATORY DATA: WBC 8.5, hemoglobin 14.7, platelets 298,000. INR 0.9. Basic metabolic profile is unremarkable. Creatinine 0.65. IMAGIN. CT of the chest demonstrates findings consistent with previous lobectomy on the left. There is a right upper lobe mass with multiple satellite lesions and mediastinal lymph nodes that are enlarged in a nearly pathologic way. Atherosclerosis is present. ASSESSMENT: 1. Pulmonary mass. 2. Chronic obstructive pulmonary disease. 3. History of nonsmall cell lung cancer, status post lobectomy, several decades ago. PLAN: The patient will undergo IR guided biopsy. I offered to leave him in the hospital until this can be arranged, but he preferred to go home. As such, he will be scheduled for some time over the next 1-2 weeks. He will return to see me in clinic roughly 2-3 days after this can be arranged. From a lung perspective, the patient can be discharged from the hospital. Pulmonary will continue to follow, intermittently if he remains in house. 70 minutes have been devoted to this patient in various activities. I personally reviewed all imaging studies and laboratory data noted within this document. For fifty percent of this time, I was interacting with the patient at the bedside or coordinating care with the care team. For the remainder of the time I was immediately available to the patient in the hospital unit. BOO
== END 2017-08-12 16:30 | disposition home or self-care (01) ==
LOC: SDC 07:33 → SURG B 15:40 → SDC 08-12 16:30
PROVIDERS: ATTEND Surgery
PROC: 01NB0ZZ Release Lumbar Nerve, Open Approach (ICD-10-PCS; principal; 2017-08-09)
DX: M48.061 Spinal stenosis, lumbar region without neurogenic claudication (principal); Z98.890 Other specified postprocedural states
CPT/HCPCS: 62305; 63047; 63048 ×2; 71045; 71260; 72050; 72126; 72129; 76001; 82565; 84520; 93005; 96374; 97116; 97139; G8978; G8979; G8980; 36415; 93010; A4216; J0131; J1885; J2001; J2250; J2270; J2370; J2405; J2704; J3010; J3370; J3490

== ENCOUNTER → 2017-08-22 | Day surgery (SDC) | payer MEDICARE ==
[2017-08-19 09:22] VITALS: BMI 26.6
--- NOTE | 2017-08-22 13:14 | RAD ---
PORTABLE AP CHEST: Date: 08-22-17 History: Post right lung biopsy. Comparison: 08-10-17 FINDINGS: The right upper lobe mass is better delineated on today's examination. There is no pneumothorax or pl eural effusions seen on the right. Post-surgical change on the right related to cervical fusion are n oted. There are post-surgical changes left hemithorax with scarring again present at the left lung mi dzone and left lung base. Dorsal column stimulator leads noted in place. Cardiac silhouette and pulmo nary vasculature are within normal limits. IMPRESSION: 1. Right upper lobe mass like opacity without evidence of a pneumothorax. 2. Post-surgical changes left hemithorax with scarring at the left lung base and left midlung zone. POS: [facility]
--- NOTE | 2017-08-22 14:09 | CT ---
CT GUIDED PERCUTANEOUS BIOPSY OF RIGHT UPPER LOBE MASS: Date: 08/22/17 HISTORY: Patient with history of prior non-small cell lung cancer involving the left hemithorax with remote hi story of partial left pneumonectomy. Patient how has mass in right upper lobe. Biopsy was requested. TECHNIQUE: The procedure, including risks and complications, were explained to the patient and informed consent was obtained. The patient was placed on the CT scan table in the supine position. Limited noncontrast ed CT scan was obtained through the right upper lobe with grid localizer in place. Skin and subcutane ous soft tissues were infiltrated with buffered 1% lidocaine for local anesthesia at the intended pun cture site located at the lateral right upper chest. Small skin incision was made. A 19 gauge guide needle was advanced, followed by three axial noncontrasted CT images. This was repea pranav until the needle was placed just within the mass in the right upper lobe. Three [address] images were obtained confirming placement of the needle just within the peripheral aspect of the right upper lobe mass. Utilizing coaxial technique, a total of two 20 gauge core needle biopsy specimens were obtained. Spec imens were evaluated by pathology and initial preliminary report noted malignancy on the provided spe cimens. The inner stylette was replaced, and the needle was removed. Follow-up CT scan examination wa s performed, which demonstrated no evidence of a pneumothorax. Adjacent patchy parenchymal changes ar e seen in the right upper lobe related to a small amount of hemorrhage due to recent biopsy. There is volume loss in the visualized left hemithorax related to patient's history of prior partial left pneumonectomy. Follow-up chest x-ray demonstrated no evidence of a pneumothorax. The patient tolerated the procedure without immediate complication. The patient was transported to [facility] nurse's holding area for further monitoring prior to discharge. A repeat chest x-ray will be obtained 2 hours from the initial chest x-ray. IMPRESSION: 1. Right upper lobe mass. 2. Technically successful CT guided percutaneous biopsy of right upper lobe mass. Final pathology is currently pending. Preliminary results indicate malignancy. 3. Small amount of hemorrhage adjacent to the mass at the site of biopsy. No pneumothorax is seen po st biopsy. POS: [facility]
--- NOTE | 2017-08-22 14:38 | RAD ---
TWO VIEWS CHEST INSPIRATORY AND EXPIRATORY RADIOGRAPHS: History: Lung mass. Date: 08-22-17 Comparison: Two views chest, earlier in the day. FINDINGS: There is an ill-defined density in the right upper lobe. No evidence of post biopsy pneumothorax is s een. Pulmonary vascular congestion is seen. IMPRESSION: No evidence of post procedure pneumothorax. POS: [facility]
== END ==
LOC: CT 08:42
PROVIDERS: ATTEND Internal Medicine
PROC: 0BDC4ZX Extraction of Right Upper Lung Lobe, Percutaneous Endoscopic Approach, Diagnostic (ICD-10-PCS; principal; 2017-08-22)
DX: C34.11 Malignant neoplasm of upper lobe, right bronchus or lung (principal); I10 Essential (primary) hypertension; E78.5 Hyperlipidemia, unspecified; N40.0 Benign prostatic hyperplasia without lower urinary tract symptoms; I25.10 Atherosclerotic heart disease of native coronary artery without angina pectoris; J44.9 Chronic obstructive pulmonary disease, unspecified; Z79.82 Long term (current) use of aspirin; Z79.899 Other long term (current) drug therapy; Z88.8 Allergy status to other drugs, medicaments and biological substances; Z90.2 Acquired absence of lung [part of]; Z87.891 Personal history of nicotine dependence
CPT/HCPCS: 32405; 71045; 77012; 88305; 88333; 88341; 88342

== ENCOUNTER 2017-08-24 12:34 | Observation (INO) | payer MEDICARE ==
[2017-08-24] MEDS ORDERED: EPINEPHrine 1 MG/10 ML Abboject SYRINGE ONE (12:40)
[2017-08-24] MEDS ORDERED: EPINEPHrine 1 MG/ML AMP ONE (12:41)
[2017-08-24] MEDS ORDERED: methylPREDNISolone Sod Succ/PF 125 MG/2 ML VIAL ONE (12:47)
[2017-08-24 13:44] LABS: #Basophils 0.1 thou/uL (0.0-0.2); #Eosinphils 0.3 thou/uL (0.0-0.7); #Lymphocytes 2.4 thou/uL (1.20-3.40); #Monocytes 0.8 thou/uL (0.11-0.59); #Neutrophils 5.1 thou/uL (1.40-6.50); %Basophils 0.8 % (0.0-1.0); %Eosinophils 3.4 % (0.0-10.0); %Lymphocytes 27.5 % (21.0-51.0); %Monocytes 8.8 % (0.0-10.0); %Neutrophils 59.5 % (42.0-75.0); Hemoglobin 13.7 g/dL (14.0-18.0); Mean Corpuscular HGB CONC 32.7 g/dL (32.0-36.0); Mean Corpuscular Hemoglobin 30.5 pg (27.0-31.0); Mean Corpuscular Volume 93.2 fl (80.0-94.0); Platelet Count 547 thou/uL (130-400); RBC Distribution Width 12.1 % (11.5-14.5); White Blood Cell (WBC) Count 8.5 thou/uL (4.8-10.8)
[2017-08-24] MEDS ORDERED: Famotidine/PF 20 mg/2ml Vial SLOW IVP SCH (13:45)
[2017-08-24 14:16] LABS: ALT (SGPT) 25 U/L (8-55); AST (SGOT) 29 U/L (5-34); Albumin 4.3 g/dL (3.4-4.8); Alkaline Phosphatase 140 U/L (40-150); Anion Gap 13 mmol/L (10-20); BUN (Urea Nitrogen) 10 mg/dL (8.4-25.7); Bilirubin, Total 0.5 mg/dL (0.2-1.2); CK (CPK) 35 U/L (30-200); Calc. Creatinine Clearance 0 mL/min (70-130); Calcium 10.2 mg/dL (7.8-10.44); Carbon Dioxide 28 mmol/L (23-31); Chloride 99 mmol/L (98-107); Estimated GFR-MDRD Greater than 90; Globulin 3.6 g/dL (2.4-3.5); Glucose 91 mg/dL (80-115); Magnesium 1.7 mg/dL (1.6-2.6); Potassium 4.1 mmol/L (3.5-5.1); Protein, Total 7.9 g/dL (5.8-8.1); Sodium 136 mmol/L (136-145)
[2017-08-24 14:20] LABS: CKMB 1.1 ng/mL (0-6.6); Troponin I Less than 0.010 ng/mL (< 0.028)
--- NOTE | 2017-08-24 14:24 | RAD ---
PORTABLE CHEST: HISTORY: Shortness of breath. COMPARISON: 08/22/17. FINDINGS: Opacity in the right upper lung consistent with the known right upper lung masses. Lung bonilla other sheldon appear clear of infiltrate with no evidence of interval change noted. No pneumothorax identifie d. Heart and mediastinum unremarkable. IMPRESSION: No acute change from the prior exam of 08/22/17. POS: [facility]
[2017-08-24] MEDS ORDERED: Ondansetron ODT 4 MG TAB PO PRN (16:04)
[2017-08-24] MEDS ORDERED: Acetaminophen 325 MG TAB PO PRN (16:04)
[2017-08-24] MEDS ORDERED: diphenhydrAMINE 25 MG CAP PO PRN (16:04)
[2017-08-24] MEDS ORDERED: Zolpidem Tartrate 5 MG TAB PO PRN (16:04)
--- NOTE | 2017-08-24 16:50 | HP ---
PRIMARY CARE PROVIDER: Dr. Senait Parker. HISTORY: Patient is referred to the [facility] [place] [facility] with oral angioedema, caused by lisino pril. His mouth and chin started swelling this morning. He has had really minimal shortness of moon th. No dysphagia. He was seen in followup for another problem by Dr. Fitzgerald and sent to the emergen cy room. He has no respiratory distress, no stridor. No dizziness. No skin reaction. PAST MEDICAL HISTORY: Pertinent for hypertension, dyslipidemia, benign prostatic hyperplasia, histor y of nonsmall cell lung cancer, history of coronary artery disease. PAST SURGICAL HISTORY: He has had a C-spine surgery in the past with an anterior plate. He has had lumbar surgery x3. He has had a ganglion cyst removed from his left wrist. He has had his surgery o n his left forearm for torn tendons and muscles. He has had a surgery of right ankle for fracture, b ilateral cataract surgeries. He currently has neurological symptoms from his C-spine and is in [facility]. He had a lung biopsy 08/22/2017 and his last L-spine surgery was 08/09/2017. CURRENT MEDICATIONS: Zocor 20 mg a day, metoprolol 100 mg a day, aspirin 81 mg a day, Norvasc 5 mg a day, tizanidine 4 mg b.i.d. p.r.n., lisinopril HCT 20/12.5 one a day, hydrocodone 10/325 one p.o. da paul p.r.n. for pain, Lasix 20 mg a day. He has an EpiPen. He takes calcium carbonate 600 mg a day. ALLERGIES: He is apparently allergic to LISINOPRIL. No other allergies. FAMILY HISTORY: Mother , she had breast cancer, lung cancer and liver cancer. Father is d with brain cancer. He has 1 sister with cancer. SOCIAL HISTORY: , FULL CODE. next of kin. Quit smoking two and a half years ago, drink s 2-3 bourbon drinks a day. REVIEW OF SYSTEMS: General: He has had a headache off and on for 3-4 weeks on the right frontal tem poral area. He states he has occasional blurred vision. No double vision, flashing lights. ENT: N o ear pain or drainage. He does have loud tinnitus, no nasal bleeding. No trouble swallowing. Card iac: No chest pain, orthopnea or paroxysmal nocturnal dyspnea. Respiratory: No cough. He has a cough in the mornings. No wheezing, no history of asthma. Gastrointestinal: He has occasional diarrhea. He has occasional nausea and vomiting 2-3 times a mon th. No blood in his emesis, no melena. Genitourinary: No hematuria or dysuria. Musculoskeletal: No swelling except occasionally in his feet. He has chronic pains. Psychiatric: No specific muscle pains. Neurologic: No strokes, seizures or focal weakness. Psychiatric: No anxiety or depression . Heme/Lymph: No tender or swollen lymph nodes in axilla, inguinal or cervical area. Skin: He bru ises easily. No chronic rash. PHYSICAL EXAMINATION: GENERAL: Alert, oriented and cooperative. VITAL SIGNS: Blood pressure 146/84, pulse 80, respirations 16, temperature 98. HEENT: Reveal pupils equal, round, and reactive to light. Extraocular movements are intact. Sclera e white. Tympanic membranes are clear. Nose is clear. Oral mucous membranes are wet. NECK: He has a neck brace on and had him take it off. There is no jugular venous distention, adenop athy or thyromegaly. There is no stridor across his neck. CHEST: Clear to auscultation and percussion. HEART: Regular rate and rhythm. First and second heart sounds are clear. There are no murmurs, no gallops. ABDOMEN: Soft, bowel sounds are normal. There is no hepatosplenomegaly, no mass, no rebound. EXTREMITIES: Reveal no cyanosis, clubbing or edema. PULSES: Carotid, radial, femoral, and dorsalis pedis pulses are palpable and symmetric. SKIN: Warm and dry without bruises or rash. HEME/LYMPH: Revealed no tender or swollen lymph nodes in axilla, inguinal or cervical area. NEUROLOGICAL: Cranial nerves II through XII are intact. Deep tendon reflexes symmetric. LABORATORY AND X-RAY FINDINGS: Chest x-ray, right upper lobe mass consistent with prior x-ray, no ev idence of CHF or infiltrate, reviewed by me. No EKG is presented. I will seek for one. White cell count 8.5, hemoglobin 13.7, and platelet count 547,000. Comp metabolic profile is normal. Cardiac e nzymes normal x1. ADMITTING DIAGNOSES: 1. Angioedema, most likely secondary to DOMINGO inhibitor with no evidence of respiratory distress, stri opal, anaphylaxis, etc. 2. Post-lung biopsy for a mass in the chest, diagnosis, adenocarcinoma. 3. Right upper lobe mass. 4. Hypertension. 5. Diabetes mellitus. 6. Elevated cholesterol. 7. Multiple spinal surgery procedures. 8. Right-sided headaches. PLAN: Patient has received Pepcid and 125 of Solu-Medrol in the ER. We will continue Pepcid 20 q.12 hours. Add Benadryl 25 p.o. q.6 hours p.r.n. I suspect this will resolve overnight. Because of hi s headaches, I have ordered erythrocyte sedimentation rate Dr. Ernestine Travis will be consulted as jayson bustillos is sending him to the ER, his home medicines will be continued amlodipine, statin, metoprolol. His lisinopril will of course be held.
[2017-08-24 18:29] VITALS: BMI 24.8
[2017-08-24] MEDS: Famotidine/PF 20 mg/2ml Vial SLOW IVP SCH (20:53)
[2017-08-24] MEDS ORDERED: Atorvastatin Calcium 10 MG TAB PO SCH (21:00)
[2017-08-25 05:08] VITALS: TEMP 97.7
[2017-08-25 05:25] LABS: #Lymphocytes 0.8 thou/uL (1.20-3.40); #Monocytes 0.4 thou/uL (0.11-0.59); #Neutrophils 6.8 thou/uL (1.40-6.50); %Basophils 0.3 % (0.0-1.0); %Eosinophils 0.4 % (0.0-10.0); %Lymphocytes 10.2 % (21.0-51.0); %Monocytes 4.5 % (0.0-10.0); %Neutrophils 84.7 % (42.0-75.0); Hemoglobin 13.2 g/dL (14.0-18.0); Mean Corpuscular HGB CONC 33.2 g/dL (32.0-36.0); Mean Corpuscular Hemoglobin 30.8 pg (27.0-31.0); Mean Corpuscular Volume 92.6 fl (80.0-94.0); Platelet Count 496 thou/uL (130-400); Red Blood Cell (RBC) Count 4.29 mill/uL (4.70-6.10); White Blood Cell (WBC) Count 8.1 thou/uL (4.8-10.8)
[2017-08-25 05:38] LABS: Anion Gap 13 mmol/L (10-20); BUN (Urea Nitrogen) 12 mg/dL (8.4-25.7); Calc. Creatinine Clearance 124 mL/min (70-130); Calcium 9.6 mg/dL (7.8-10.44); Carbon Dioxide 25 mmol/L (23-31); Chloride 100 mmol/L (98-107); Estimated GFR-MDRD Greater than 90; Glucose 155 mg/dL (80-115); Potassium 3.9 mmol/L (3.5-5.1); Sodium 134 mmol/L (136-145)
--- NOTE | 2017-08-25 07:10 | PDOC.PN ---
- Subjective Encounter Start Date: 08/25/17 Encounter Start Time: 07:09 Subjective: no sob, facial swelling decreased - Objective MAR Reviewed: Yes Vital Signs & Weight: Vital Signs (12 hours) Temp Pulse Resp BP Pulse Ox 08/25/17 03:59 97.7 F 80 20 151/77 H 97 08/24/17 23:36 98 F 96 18 143/74 H 97 08/24/17 20:53 97.6 F 81 18 I&O: 08/24/17 08/25/17 08/26/17 06:59 06:59 06:59 Intake Total 340 Balance 340 Result Diagrams: 08/25/17 04:01 08/25/17 04:01 Phys Exam - Physical Examination Neck: no JVD no stridor Respiratory: clear to auscultation bilateral Cardiovascular: RRR, no significant murmur Gastrointestinal: soft, positive bowel sounds Musculoskeletal: no edema, edema present Dx/Plan (1) Angioedema due to angiotensin converting enzyme inhibitor (DOMINGO-I) Code(s): T78.3XXA - ANGIONEUROTIC EDEMA, INITIAL ENCOUNTER; T46.4X1A - POISONING BY [id number] INHIBITORS, ACC, INIT Status: Acute (2) HTN (hypertension) Code(s): I10 - ESSENTIAL (PRIMARY) HYPERTENSION Status: Chronic Qualifiers: Hypertension type: essential hypertension Qualified Code(s): I10 - Essential (primary) hypertension (3) Dyslipidemia Code(s): E78.5 - HYPERLIPIDEMIA, UNSPECIFIED Status: Chronic (4) Recurrent lung adenocarcinoma Code(s): C34.90 - MALIGNANT NEOPLASM OF UNSP PART OF UNSP BRONCHUS OR LUNG Status: Acute Qualifiers: Laterality: right Qualified Code(s): C34.91 - Malignant neoplasm of unspecified part of right bronchus or lung - Plan improved, discuss with Dr Sinha * .
[2017-08-25] MEDS: Famotidine/PF 20 mg/2ml Vial SLOW IVP SCH (08:56)
[2017-08-25] MEDS ORDERED: Metoprolol Tartrate 100 MG TAB PO SCH (09:00)
[2017-08-25] MEDS ORDERED: Amlodipine 5 MG TAB PO SCH (09:00)
[2017-08-25 11:10] VITALS: BP 164/76
--- NOTE | 2017-08-25 11:19 | DIS ---
DATE OF ADMISSION: 08/24/2017 DATE OF DISCHARGE: 08/25/2017 PRIMARY CARE PROVIDER: Senait Parker D.O. DISCHARGE DISPOSITION: Home. FINAL DIAGNOSES: Angioedema secondary to DOMINGO inhibitor, hypertension, adenocarcinoma of the lung, ri ght upper lobe, dyslipidemia. DISCHARGE MEDICATIONS: Same as his home medicines except his lisinopril has been held, tizanidine 4 mg twice a day p.r.n., Zocor 20 mg a day, hydrocodone 10/325 one q.6 hours p.r.n., Lasix 20 mg a day, metoprolol 100 mg a day, aspirin 81 mg a day, Norvasc 5 mg and the addition of prednisone 40 mg a da y for 5 days. ALLERGIES: DOMINGO INHIBITORS and LISINOPRIL specifically. PENDING AT TIME OF DISCHARGE: Nothing. CODE STATUS: FULL. HOSPITAL COURSE: The patient admitted to [facility] with swelling in his lips, chin, and cheeks. No swelling in his tongue. He had 2 previous episodes for which he sought care. He has been on lisinopril all this time. He had no stridor. He was given high dose steroids and in the emergency room, he had a recent biopsy which is positive for lung cancer. Dr. Sinha saw him an d has arranged followup with himself. Patient's edema is markedly decreased a day. He has no strido r, no shortness of breath. Vital signs are stable. He is agreeable with going home. He is being di scharged to follow up with his PCP in 1 week for adjustment of blood pressure medicines to follow up with Dr. Sinha per his directions. CBC x2 is unremarkable except for the first one that has hemogl obin of 13.7; second one 13.1. Comp metabolic profile is normal. Cardiac enzymes were normal. Ches t x-ray was clear. PROCEDURES: None. STATUS AT THE TIME OF DISCHARGE: Good. DIET: Heart healthy.
== END 2017-08-25 11:35 | disposition home or self-care (01) ==
LOC: ERS 12:34 → 2SW 18:10
PROVIDERS: ADMIT Internal Medicine; ATTEND Internal Medicine
DX: T78.3XXA Angioneurotic edema, initial encounter (principal); T46.4X5A Adverse effect of angiotensin-converting-enzyme inhibitors, initial encounter; I10 Essential (primary) hypertension; E78.5 Hyperlipidemia, unspecified; N40.0 Benign prostatic hyperplasia without lower urinary tract symptoms; I25.10 Atherosclerotic heart disease of native coronary artery without angina pectoris; E11.9 Type 2 diabetes mellitus without complications; E78.00 Pure hypercholesterolemia, unspecified; C34.91 Malignant neoplasm of unspecified part of right bronchus or lung; Z87.891 Personal history of nicotine dependence; Z79.82 Long term (current) use of aspirin; Z79.899 Other long term (current) drug therapy
CPT/HCPCS: 71045; 80048; 80053; 82550; 82553; 83735; 84484; 85025 ×2; 85652; 86850; 86900; 86901; 96372; 96374; 96375; 96376 ×2; 99291; G0378; 36415; J0171; J2930; S0028

== ENCOUNTER 2017-09-08 11:44 | Outpatient (CLI) | payer MEDICARE ==
--- NOTE | 2017-09-08 15:28 | PET ---
PET CT: INDICATION: Diagnosis code R91.1. Initial staging for lung cancer. TECHNIQUE: PET CT images were obtained from the skull base to the mid thighs. 11.8 mCi of F18-FDG IV was utiliz ed for the examination. CT images were obtained for attenuation correction purposes only. COMPARISON: Comparisons were made with the prior PET CT evaluation dated 09/22/10 and a prior stone protocol CT of the abdomen and pelvis dated 05/25/[address] of the chest dated 08/11/17. FINDINGS: The biodistribution for the examination appears acceptable. HEAD AND NECK: No hypermetabolic lymphadenopathy or mass is identified in the head and neck region. THORAX: Corresponding to the large right upper lobe mass seen on the comparison evaluation is a 6.1 cm hyperm etabolic lesion that abuts the anterior wall of the right upper hemithorax. The peak SUV uptake is 5 .47 with a mean uptake of 4.58. There is a spiculated nodule within the posterior segment of the right upper lobe measuring 1.7 cm wi th a peak uptake of 1.4 and a mean uptake of 1.31. There is a nodular opacity measuring up to 1.47 cm within the medial segment of the right middle lobe with peak uptake of 1.18 and mean value of 1.11. There are 2 separate pulmonary nodules within the left lower lobe measuring 6 mm apiece with peak upt taiwo of 1.0 for a mean uptake of 0.99. There is postsurgical change of a left upper lobectomy. There is severe emphysema. No hypermetabolic lymphadenopathy is present. There are coronary artery thora cic aorta calcifications. ABDOMEN AND PELVIS: No hypermetabolic lymphadenopathy, mass, or ascites is present. SKIN AND OSSEOUS STRUCTURES; NO hypermetabolic skin or osseous lesion is identified. IMPRESSION: Abnormal PET CT. 1. There is a large hypermetabolic right upper lobe mass that corresponds to the patient's known mal ignancy. There are numerous scattered pulmonary nodules within both lungs, 1 within the posterior se gment of the right upper lobe, another within the medial segment of the right middle lobe, and 2 smal l pulmonary nodules within the left lower lobe. These do not demonstrate hypermetabolic uptake. How ever, due to the morphology and the fact that these lesions are new, this is suspicious for metastati c disease. Would recommend a short-term CT followup of the thorax to confirm this. 2. No evidence of distant metastatic disease within the abdomen and pelvis or skin and osseous struc tures. POS: [facility]
== END 2017-09-08 11:45 | disposition home or self-care (01) ==
LOC: PET 11:44
PROVIDERS: ATTEND Internal Medicine
DX: C34.91 Malignant neoplasm of unspecified part of right bronchus or lung (principal); R91.8 Other nonspecific abnormal finding of lung field
CPT/HCPCS: 78815; A9552

== ENCOUNTER 2017-09-19 09:24 | Outpatient (CLI) | payer MEDICARE ==
--- NOTE | 2017-09-19 11:14 | RAD ---
CERVICAL SPINE 5 VIEWS INCLUDING FLEXION AND EXTENSION LATERAL VIEWS: HISTORY: A 66-year-old male with a history of cervical spine pain with numbness and shooting pain between cyst and shoulders. The patient was recently diagnosed with stage IV lung cancer. COMPARISON: 08/10/17. FINDINGS: Anterior cervical fusion changes at C4, C5, C6, and C7. Mild anterolisthesis of C3 on C4. There is slight worsening of the anterior listhesis with flexion relative to extension. No abnormal preverteb ral soft tissue swelling. C1 and C2 are partially obscured on the AP open mouth view and C7-T1 is pa rtially obscured on the lateral view. IMPRESSION: Anterior cervical fusion changes at C4 through C7. Minimal anterolisthesis of C3 on C4 with possible mild anterior translation. Little change from prior study. No new process. POS: [facility]
== END 2017-09-19 09:25 | disposition home or self-care (01) ==
LOC: TBSIIMAG 09:24
PROVIDERS: ATTEND Surgery
DX: M54.5 Low back pain (principal); Z98.1 Arthrodesis status; M43.12 Spondylolisthesis, cervical region
CPT/HCPCS: 72050

== ENCOUNTER 2017-10-28 06:55 | Emergency (ER) | payer MEDICARE ==
[2017-10-28 07:41] LABS: Bilirubin Negative (Negative); Blood, Urine Negative (Negative); Clarity CLEAR (Clear); Glucose, Urine (Dipstick) Negative (Negative); Leukocyte Negative (Negative); Nitrite Negative (Negative); Protein, Urine (Dipstick) Negative (Neg-Trace); Specific Gravity, Urine 1.006 (1.002-1.036); Urobilinogen 0.2 mg/dL (0.2-1.0)
[2017-10-28] MEDS ORDERED: Ketorolac Tromethamine 60 MG/2 ML VIAL ONE (08:05)
== END 2017-10-28 08:52 | disposition home or self-care (01) ==
LOC: ERS 06:55
DX: G89.29 Other chronic pain (principal); M54.5 Low back pain; E78.5 Hyperlipidemia, unspecified; I10 Essential (primary) hypertension; E78.1 Pure hyperglyceridemia; Z87.891 Personal history of nicotine dependence; Z79.899 Other long term (current) drug therapy
CPT/HCPCS: 81003; 96372; J1885

== ENCOUNTER 2017-10-31 12:35 | Outpatient (CLI) | payer MEDICARE ==
--- NOTE | 2017-10-31 14:02 | RAD ---
RIGHT HIP TWO VIEWS: History: Hip pain. Osteoarthritis. FINDINGS: Femoral head contour is normal. Minimal spurring from the femoral head. Joint space appears maintaine d. No fracture or acute lesion. IMPRESSION: Evidence of mild osteoarthritic change. POS: [facility]
== END 2017-10-31 12:36 | disposition home or self-care (01) ==
LOC: RAD 12:35
PROVIDERS: ATTEND Anesthesiology Pain Medicine
DX: M19.90 Unspecified osteoarthritis, unspecified site (principal); M16.11 Unilateral primary osteoarthritis, right hip

== ENCOUNTER 2017-11-11 08:09 | Outpatient (CLI) | payer MEDICARE ==
--- NOTE | 2017-11-11 10:45 | CT ---
LUMBAR SPINE CT WITHOUT CONTRAST: HISTORY: Previous surgery. Lumbar radiculopathy. Pain radiating down the left and right legs. COMPARISON: 06/29/2017 TECHNIQUE: A CT of the lumbar spine was performed without intravenous or intrathecal contrast administration. S agittal and coronal reformatted images were submitted for interpretation. FINDINGS: Redemonstration of bilateral transpedicular screws at L4, L5, and S1. There is 7 mm of retrolisthesi s of L3 upon L4. There are posterior decompressive laminectomy defects at L3, L4, and L5. A dorsal column stimulator is noted, incompletely evaluated. With regard to the posterior fusion screws, there is no perihardware lucency. Vacuum disk phenomenon at L1-L2, L2-L3, and L3-L4. The retroperitoneal structures are unremarkable. The visualized solid organs are unremarkable. Atherosclerosis of a nonaneurysmal aorta. Limited evaluation of the contents of the central spinal canal and the neural foramina due to techniq ue. T11-T12/T12-L1: No high grade central canal stenosis. The neural foramina are patent bilaterally. L1-L2: Vacuum disk phenomenon. Generalized disk bulge results in mild central canal stenosis. Mode rate bilateral foraminal narrowing. L2-L3: Posterior decompression. Generalized disk bulge with vacuum disk phenomenon. At least mild central canal stenosis. Moderate bilateral foraminal narrowing. L3-L4: Vacuum disk phenomenon. Generalized disk bulge and posterior element hypertrophy is suggeste d. Posterior decompression is noted. There appears to be at least moderate central canal stenosis. Moderate to severe bilateral foraminal narrowing. L4-L5: Generalized disk bulge with central disk protrusion. Posterior decompression. At least mild central canal stenosis. Moderate bilateral foraminal narrowing. L5-S1: Posterior decompression. No significant stenosis of the thecal sac. Moderate right and mild to moderate left foraminal narrowing. IMPRESSION: Redemonstration of postoperative and degenerative changes of the lumbar spine. When compared to the previous examination, which was a post myelogram CT, the overall degree of central canal stenosis and foraminal narrowing has not changed. There is still moderate central canal stenosis at L3-L4, which is better demonstrated on the post myelogram CT performed in June 2017. POS: [facility]
== END 2017-11-11 08:10 | disposition home or self-care (01) ==
LOC: TBSIIMAG 08:09
PROVIDERS: ATTEND Anesthesiology Pain Medicine
DX: M47.26 Other spondylosis with radiculopathy, lumbar region (principal); M48.061 Spinal stenosis, lumbar region without neurogenic claudication; M99.83 Other biomechanical lesions of lumbar region; Z98.890 Other specified postprocedural states
CPT/HCPCS: 72131

== ENCOUNTER 2017-12-09 08:53 | Outpatient (CLI) | payer MEDICARE ==
[2017-12-09] MEDS ORDERED: ISOVUE-370 76%-LOCM 1 ML ONE (10:10)
== END 2017-12-09 08:54 | disposition home or self-care (01) ==
LOC: BICCT 08:53
PROVIDERS: ATTEND Internal Medicine Medical Oncology
DX: M54.16 Radiculopathy, lumbar region (principal); C34.11 Malignant neoplasm of upper lobe, right bronchus or lung; R91.8 Other nonspecific abnormal finding of lung field
CPT/HCPCS: 71260; 72110

== ENCOUNTER 2018-01-05 06:52 | Day surgery (SDC) | payer MEDICARE ==
[2018-01-05 07:26] VITALS: BMI 25.5
[2018-01-05] MEDS ORDERED: HYDROcodone/Acetaminophen 5/325 mg Tablet ONE (07:45)
--- NOTE | 2018-01-05 10:21 | RAD ---
LUMBAR MYELOGRAM: HISTORY: Patient with multiple previous back surgeries with back and persistent right leg pain. FINDINGS: The preliminary manager talent film reveals bilateral pedicle screws at L4, L5, and S1. Marked disk narrowing at L3-L4 with moderate retrolisthesis of L3 on L4 is noted, of approximately 8 to 9 mm. Degenerativ e disk narrowing is also seen at L1-L2. After informed consent was obtained, the patient was prepped and draped in the normal sterile fashion . Local anesthesia was obtained with 1% Xylocaine. A 22 gauge spinal needle was inserted at the L4- L5 laminectomy defect, and approximately 12 mL of nonionic contrast was injected with good opacificat ion of the thecal sac. The patient tolerated the procedure well. There were no immediate complicati ons. IMPRESSION: Successful lumbar myelogram. Please see the CT report concerning findings. POS: [facility]
--- NOTE | 2018-01-05 10:31 | CT ---
POST MYELOGRAM CT OF LUMBAR SPINE PERFORMED WITH CONTRAST: History: Back and right leg pain. Comparison: 06-29-17 FINDINGS: There are bilateral pedicle screws noted at the L4, L5, and S1 level. Retrolisthesis of L3 on L4 is p resent of approximately 5-6 mm. Dorsal column stimulator is seen in the lower thoracic spine. T12-L1: Unremarkable. L1-2: There is disc bulging which is more of broad based asymmetric bulge to the right, similar to wh at was seen on the prior examination. There is bilateral foraminal narrowing noted. L2-3: Post op laminectomy changes are seen at this level. No central canal stenosis. L3-4: Retrolisthesis is present at this level. There are post op laminectomy change, however, there i s overall narrowing to the thecal sac with soft tissue changes seen posteriorly as well as the disc b ulge and retrolisthesis. There is bilateral foraminal narrowing also present at this level. L4-5: Post op laminectomy changes are seen at this level. The degenerative facet changes contribute t o some bilateral foraminal stenosis which is moderate. L5-S1: Post op changes also present at this level with laminectomy change. There are degenerative fac et changes with mild right foraminal stenosis. IMPRESSION: Post-operative changes of the spine with areas of canal and foraminal stenosis as discussed above. POS: [facility]
[2018-01-05] MEDS ORDERED: Iopamidol-M 200 41% 20 ML VIAL ONE (14:57)
== END 2018-01-05 09:20 | disposition home or self-care (01) ==
LOC: RAD 06:52
PROVIDERS: ATTEND Surgery
PROC: B01B1ZZ Fluoroscopy of Spinal Cord using Low Osmolar Contrast (ICD-10-PCS; principal; 2018-01-05)
DX: M51.36 Other intervertebral disc degeneration, lumbar region (principal); M48.061 Spinal stenosis, lumbar region without neurogenic claudication; I25.2 Old myocardial infarction; C34.90 Malignant neoplasm of unspecified part of unspecified bronchus or lung; Z79.82 Long term (current) use of aspirin; Z79.899 Other long term (current) drug therapy; Z88.8 Allergy status to other drugs, medicaments and biological substances; Z98.1 Arthrodesis status; Z98.890 Other specified postprocedural states
CPT/HCPCS: 62304; 72132

== ENCOUNTER 2018-03-15 08:27 | Outpatient (CLI) | payer MEDICARE ==
[2018-03-15] MEDS ORDERED: ISOVUE-370 76%-LOCM 1 ML ONE (10:39)
--- NOTE | 2018-03-15 13:59 | CT ---
CT THORAX WITH IV CONTRAST: Date: 03-15-18 History: Left lung cancer. Pulmonary nodules in subcarinal lymph nodes. Follow up evaluation. Comparison: Prior study of 12-09-17. FINDINGS: Previously described lobulated anterior right upper lobe mass is again seen with slightly spiculated margins. This mass measures 3.6 cm craniocaudal x 5 cm transverse x 2.8 cm AP with measurements on th e prior study of 3.7 cm craniocaudal x 5.2 cm transverse x 3.5 cm AP. Linear densities are again seen within the posterior aspect of the right upper lobe, stable from prio r exam, which is in region of prior nodularity. The lobulated pulmonary nodule in the more inferior aspect of the right middle lobe is again seen, bu t does measure larger in size, previously measuring 7 mm craniocaudal x 16 mm transverse x 7 mm AP an d currently measures 9 mm craniocaudal x 17 mm transverse x 9 mm AP. An approximately 6 mm pulmonary nodule is again seen at the lateral aspect of the left lower lobe. Post-surgical changes related to left upper lobectomy are again present. Chronic lung changes are aga in present with emphysematous changes again present. Again noted are prominent mediastinal lymph nodes with AP window lymph node again seen measuring 13 m m in short axis dimension with a subcarinal lymph node present measuring approximately 14 mm in short axis dimension. Vascular calcifications seen in the thoracic aorta. Visualized upper abdomen has a normal CT appearance. Dorsal column stimulator leads are again present with degenerative changes in the spine. No lytic or sclerotic osseous lesions are appreciated. IMPRESSION: 1. Interval enlargement of a lobulated pulmonary nodule in the right middle lobe, but the anterior se gment right upper lobe mass as well as pulmonary nodule in the left lower lobe are stable in size wit h stable linear densities again present in the region of the previously noted right upper lobe pulmon magdalena nodule more inferiorly in the right upper lobe. No new pulmonary nodule or mass is seen. 2. Stable prominence of mediastinal lymph nodes. 3. Post-surgical changes of left upper lobectomy and stable chronic lung changes. POS: [facility]
== END 2018-03-15 08:28 | disposition home or self-care (01) ==
LOC: BICCT 08:27
PROVIDERS: ATTEND Internal Medicine Medical Oncology
DX: R91.8 Other nonspecific abnormal finding of lung field (principal); Z90.2 Acquired absence of lung [part of]
CPT/HCPCS: 71260

== ENCOUNTER → 2018-03-28 | Day surgery (SDC) | payer MEDICARE ==
[2018-03-27 12:18] VITALS: BMI 26.6
[~2018-03-28] MED LIST changes: +Bupivacaine HCl 0.5%/Epinephrine 1:200,000/PF 30 ml Vial ONE; +Fentanyl 100 MCG/2 ML VIAL ONE; -Iopamidol-M 200 41% 20 ML VIAL ONE; +Lidocaine 1% (PF) 30 ML VIAL ONE; +Lidocaine 1% PF 5 ML VIAL ONE; +Midazolam HCl 2 mg/2 ml Vial ONE; +PROPOFOL 200 MG/20 ML VIAL ONE
[2018-03-28 12:42] LABS: Hemoglobin 12.3 g/dL (14.0-18.0); Red Blood Cell (RBC) Count 4.03 mill/uL (4.70-6.10); White Blood Cell (WBC) Count 6.6 thou/uL (4.8-10.8)
[2018-03-28 12:43] LABS: Mean Corpuscular HGB CONC 32.3 g/dL (32.0-36.0); Mean Corpuscular Hemoglobin 30.5 pg (27.0-31.0); Mean Corpuscular Volume 94.4 fL (78.0-98.0); Mean Platelet Volume 6.3 fL (7.4-10.4); Platelet Count 274 thou/uL (130-400); RBC Distribution Width 13.9 % (11.5-14.5)
[2018-03-28 12:53] LABS: Manual Diff?? YES
[2018-03-28 13:26] LABS: Lymphocytes 35 % (21-51)
[2018-03-28 13:27] LABS: Monocytes 13 % (0-10); PLT Morphology Comment Appears Adequate; Polychromasia SLIGHT = 2-3 cells (100X) (0-2/hpf)
[2018-03-28 13:38] LABS: MDiff Complete? YES; Neutrophil 52 % (42-75)
--- NOTE | 2018-03-30 02:40 | OP ---
DATE OF PROCEDURE: 03/28/2018 PREOPERATIVE DIAGNOSES: 1. Nonfunctioning spinal cord stimulation system. 2. Lumbar radiculopathy. 3. Chronic pain syndrome. 4. Metastatic cancer. POSTOPERATIVE DIAGNOSES: 1. Nonfunctioning spinal cord stimulation system. 2. Lumbar radiculopathy. 3. Chronic pain syndrome. 4. Metastatic cancer. TAKE OUT WAITRESS: None. PROCEDURES PERFORMED: 1. Explant of a right spinal cord stimulation lead. 2. Explantation of a left spinal cord stimulation lead. 3. Explant of dorsal column stimulator internal pulse generator. ANESTHESIA: TIVA. SUMMARY: Risks and benefits were discussed. Informed consent was obtained. He was taken to the OR and prepped and draped in standard fashion. Fluoroscopic imaging was used to identify the lead anchors before prep; sterilely prepped and draped in the standard fashion using Hibiclens. Local anesthetic was used over the posterior incision over the IPG and over the lead anchors. Marcaine 0.25% with epinephrine mixed with 2% lidocaine 50:50 was used for anesthesia. Incision was made over both the posterior incision over the anchors and over the IPG. IPG was explanted first. Blunt dissection with the Metzenbaum was used to easily identify the fascial layers, they were excised and the IPG was easily exposed and removed from the pocket. The leads were then tagged with hemostats and each lead was then severed removing the IPG from the site. Incision was then carried out over the posterior anchors. Each anchor was easily identified after blunt dissection using the Metzenbaum. Each anchor had two 2-0 silk sutures that were removed. Each anchor was then freed to be removed from the site. The leads were then removed with the anchors intact. This completed the explant on both the right and left spinal cord stimulation electrodes and the internal pulse generator. All counts were correct x2. Closure was accomplished in layers with 2-0 Vicryl, and the skin was closed with a running subcuticular Rapide. Dressing with Dermabond, 4x4s and Medipore tape, and there were no complications. Job ID: [id number]
== END ==
LOC: SDC 11:46
PROVIDERS: ATTEND Anesthesiology Pain Medicine
PROC: 00PU3MZ Removal of Neurostimulator Lead from Spinal Canal, Percutaneous Approach (ICD-10-PCS; principal; 2018-03-28)
PROC: 0JPT0MZ Removal of Stimulator Generator from Trunk Subcutaneous Tissue and Fascia, Open Approach (ICD-10-PCS; 2018-03-28)
DX: T85.113A Breakdown (mechanical) of implanted electronic neurostimulator, generator, initial encounter (principal); T85.112A Breakdown (mechanical) of implanted electronic neurostimulator of spinal cord electrode (lead), initial encounter; G89.4 Chronic pain syndrome; M54.16 Radiculopathy, lumbar region; C80.1 Malignant (primary) neoplasm, unspecified; Z79.82 Long term (current) use of aspirin; Z79.899 Other long term (current) drug therapy; Z88.8 Allergy status to other drugs, medicaments and biological substances
CPT/HCPCS: 36415; 76000; 85025; J0670; J2001; J2250; J2704; J3010

== ENCOUNTER 2018-04-18 13:42 | Outpatient (CLI) | payer MEDICARE ==
[~2018-04-18 13:42] MED LIST changes: -Bupivacaine HCl 0.5%/Epinephrine 1:200,000/PF 30 ml Vial ONE; -Fentanyl 100 MCG/2 ML VIAL ONE; +Gadobenate Dimeglumine 529 MG/1 ML (20ML VIAL) ONE; -Lidocaine 1% (PF) 30 ML VIAL ONE; -Lidocaine 1% PF 5 ML VIAL ONE; -Midazolam HCl 2 mg/2 ml Vial ONE; -PROPOFOL 200 MG/20 ML VIAL ONE
--- NOTE | 2018-04-18 15:17 | RAD ---
TWO VIEWS LUMBAR SPINE: Date: 04-18-18 History: MRI safety. Comparison: [employer]ender images from lumbar myelogram on 01-05-18. FINDINGS: As noted on the prior examination, there are post-surgical changes involving the lumbar spine related to posterior fusion of the lower lumbar spine with bipedicular screws and posterior rods again trans fixing the L4-5 and L5-S1 levels. Multilevel degenerative changes are seen. Prominent osteophyte seen anteriorly at multiple levels. There is slight retrolisthesis of L3 on L4 which was also seen on the prior exam. There is a greater degree of narrowing of the intervertebral disc space with irregularit y of the endplates of the L3 and L4 vertebral bodies, but this likely attributable to prominent endpl ate degenerative changes. Laminectomy defects are seen posteriorly extending from the L2-3 level to t he upper sacrum. There is mild right convex curvature of the lumbar spine. Vascular calcifications ar e seen in the abdominal aorta and involving the iliac arteries. Previously seen dorsal column stimula tor leads entering the T12-L1 level noted on the prior exam were not visualized on this examination a nd have likely been removed. Vascular calcifications overlie the upper abdomen. IMPRESSION: 1. Post-surgical and degenerative changes of the lumbar spine. 2. Greater degree of narrowing of the L3-4 intervertebral disc space with endplate sclerosis. Finding s are probably related to progression in degenerative changes. If there is concern for osteomyelitis and discitis, MRI would be the study of choice for further evaluation. However, this is felt to most likely be related to endplate degenerative changes which have progressed. POS: [facility]
--- NOTE | 2018-04-18 17:39 | MRI ---
MRI LUMBAR SPINE WITH AND WITHOUT CONTRAST: 04/18/18 Multiplanar and multisequential imaging of the lumbar spine obtained. [facility] INDICATIONS: Lumbar radiculopathy. Multiple lumbar surgeries. Correlation made to MRI of lumbar spine dated 01/15/15. FINDINGS: The lumbar vertebrae maintain height and alignment. Moderately severe degenerative hypertrophic stanford es seen with prominent osteophytes seen from all lumbar vertebrae. Pedicle screws are noted at L4, L5 , and S1 levels and were present on the prior study. Diffuse disc bulge at multiple levels. At T12-L1, no significant disc bulge or protrusion. At L1-2, mild diffuse disc bulge flattens the thecal sac. Mild facet arthrosis. Mild central canal st enosis. The disc bulge is slightly more pronounced to the right and there is right foraminal encroach ment. At L2-3, diffuse disc bulge. Facet hypertrophy. Mild to moderate central canal stenosis. Bilateral fo raminal stenosis. At L3-4, slight posterolisthesis. Diffuse disc bulge. Posterior laminectomy change. Prominent facet h ypertrophy. Moderate central stenosis. Bilateral foraminal stenosis. At L4-5, posterior laminectomy change. Pedicle screws. Fat signal is seen in the posterior epidural r egion unchanged from the prior exam. No significant central canal stenosis. Foraminal stenosis. At L5-S1, mild disc bulge. No significant central canal stenosis. Mild foraminal stenosis more promin ent on the right. IMPRESSION: Central canal stenosis is prominent at L2-3 and L3-4 levels as described above. Foraminal stenosis at multiple levels as noted above. Postoperative changes as described. POS: [facility]
== END 2018-04-18 13:43 | disposition home or self-care (01) ==
LOC: BICMRI 13:42
PROVIDERS: ATTEND Anesthesiology Pain Medicine
DX: M47.26 Other spondylosis with radiculopathy, lumbar region (principal); M48.061 Spinal stenosis, lumbar region without neurogenic claudication; G95.89 Other specified diseases of spinal cord; Z98.890 Other specified postprocedural states
CPT/HCPCS: 72100; 72158; A9579

== ENCOUNTER 2018-06-26 07:45 | Emergency (ER) | payer MEDICARE | END 2018-06-26 08:17 | disposition home or self-care (01) | LOC: ERS 07:45 | DX: M54.5 Low back pain (principal); G89.29 Other chronic pain; E78.1 Pure hyperglyceridemia; I10 Essential (primary) hypertension; Z87.891 Personal history of nicotine dependence; Z79.891 Long term (current) use of opiate analgesic; Z79.82 Long term (current) use of aspirin; Z79.899 Other long term (current) drug therapy | CPT/HCPCS: 99283 ==

== ENCOUNTER 2018-06-26 08:37 | Outpatient (CLI) | payer MEDICARE ==
[~2018-06-26 08:37] MED LIST changes: -Gadobenate Dimeglumine 529 MG/1 ML (20ML VIAL) ONE; +ISOVUE-370 76%-LOCM 1 ML ONE
--- NOTE | 2018-06-26 10:31 | CT ---
CONTRAST ENHANCED CT OF CHEST: HISTORY: Patient with lung cancer. Patient is on chemotherapy and having trouble with back and hip pain. FINDINGS: Contrast-enhanced CT images of the chest obtained. CT images demonstrate a patient with a previous left upper lobectomy. A lobular mass in the right up per lobe appears to have increased in size. Previously it measured 5.0 x 2.8 x 3.6 cm and now it has increased in size measuring 4.6 x 4.4 x 3.4 cm. The AP dimension appears to have significantly incr eased. A 3rd lesion in the right middle lobe is again seen not significantly changed in size or shape. A ti ny soft tissue density is also seen in the posterolateral aspect of the left lower lobe axial image #[id number]. This has not significantly changed since the previous exam. Extensive bilateral lung base pulmonary fibrotic changes seen, more prominent on the left than on the right. No evidence of significant adrenal lesion is seen. Mild paratracheal lymphadenopathy is present. Some subcarinal lymphadenopathy is also present. Thes e are not significantly changed since the previous exam. IMPRESSION: Stable CT appearance of chest, except for moderately enlarging right upper lobe lung parenchymal lesi on. POS: [facility]
== END 2018-06-26 08:38 | disposition home or self-care (01) ==
LOC: BICCT 08:37
PROVIDERS: ATTEND Internal Medicine Medical Oncology
DX: C34.11 Malignant neoplasm of upper lobe, right bronchus or lung (principal); R91.1 Solitary pulmonary nodule
CPT/HCPCS: 71260; Q9966

== ENCOUNTER 2018-07-26 09:53 | Observation (INO) | payer MEDICARE ==
[2018-07-26] MEDS ORDERED: ISOVUE-370 76%-LOCM 1 ML ONE (10:34)
[2018-07-26 11:02] LABS: #Eosinphils 0.1 thou/uL (0.0-0.7); #Lymphocytes 0.8 thou/uL (1.20-3.40); #Monocytes 0.5 thou/uL (0.11-0.59); #Neutrophils 5.3 thou/uL (1.40-6.50); %Eosinophils 1.2 % (0.0-10.0); %Lymphocytes 12.6 % (21.0-51.0); %Neutrophils 79.1 % (42.0-75.0); Hemoglobin 10.1 g/dL (14.0-18.0); Mean Corpuscular HGB CONC 33.3 g/dL (32.0-36.0); Mean Corpuscular Hemoglobin 31.2 pg (27.0-31.0); Mean Corpuscular Volume 93.7 fL (78.0-98.0); Mean Platelet Volume 6.5 fL (7.4-10.4); Platelet Count 275 thou/uL (130-400); RBC Distribution Width 13.9 % (11.5-14.5); Red Blood Cell (RBC) Count 3.25 mill/uL (4.70-6.10); White Blood Cell (WBC) Count 6.7 thou/uL (4.8-10.8)
[2018-07-26] MEDS ORDERED: Morphine 4 MG/ML VIAL ONE (11:06)
[2018-07-26] MEDS ORDERED: Morphine 2 MG/ML SYRINGE ONE (11:07)
--- NOTE | 2018-07-26 11:07 | RAD ---
PORTABLE CHEST: History: Worsening chest pain, shortness of breath. Comparison: 08-24-17 chest radiograph, CT examination of 06-26-18. FINDINGS: The right upper lobe lung mass is again identified. There are emphysematous lung changes seen with in terstitial scarring in the lung bases. I do not appreciate any definite acute infiltrative process or significant change since the prior exam. IMPRESSION: Right upper lobe lung mass with chronic lung changes and interstitial fibrotic lung changes consisten t with scar, stable as compared to the recent CT study. POS: [facility]
--- NOTE | 2018-07-26 11:17 | CT ---
Exam: CTA of the chest HISTORY: Shortness of breath and chest pain COMPARISON: None TECHNIQUE: Multiple contiguous axial images were obtained a CTA of the chest with contrast per pulmon magdalena embolism protocol. 3-D oblique MIP reformats and direct coronal reformats were performed. FINDINGS: LUNGS: Severe emphysematous changes are seen in the lungs. Increased interstitial markings are also p resent. There is a 4.9 cm multilobulated/spiculated mass involving the right upper lobe. There is a separate spiculated mass in the inferior aspect of the right middle lobe measuring 1.6 cm in size. PLEURAL SPACE: No pleural effusion or pneumothorax. HEART: Normal in size without focal cardiac abnormality. PULMONARY ARTERIES: Normal in caliber without filling defects to suggest pulmonary emboli. MEDIASTINUM: There are nonenlarged right hilar lymph nodes measuring up to 1.1 cm in greatest dimensi on. There are enlarged mediastinal lymph nodes in the left paratracheal region and subcarinal location. The largest measures 1.7 cm in greatest dimension. CHEST WALL SOFT TISSUES: Unremarkable VISUALIZED OSSEOUS STRUCTURES: Degenerative changes are seen in the spine. No suspicious osseous lesi ons are identified. VISUALIZED SUBDIAPHRAGMATIC STRUCTURES: Unremarkable IMPRESSION: 1. No evidence of pulmonary thromboembolism 2. Right pulmonary masses are suspicious for malignancy. There may be metastases to the mediastinum. 3. Emphysema
[2018-07-26 11:20] LABS: ALT (SGPT) 22 U/L (8-55); AST (SGOT) 26 U/L (5-34); Albumin 3.6 g/dL (3.4-4.8); Alkaline Phosphatase 135 U/L (40-150); Anion Gap 15 mmol/L (10-20); BUN (Urea Nitrogen) 11 mg/dL (8.4-25.7); Bilirubin, Total 0.7 mg/dL (0.2-1.2); Calc. Creatinine Clearance 0 mL/min (70-130); Calcium 8.9 mg/dL (7.8-10.44); Carbon Dioxide 27 mmol/L (23-31); Chloride 98 mmol/L (98-107); Estimated GFR-MDRD Greater than 90; Globulin 2.4 g/dL (2.4-3.5); Glucose 131 mg/dL (80-115); Potassium 3.5 mmol/L (3.5-5.1); Sodium 136 mmol/L (136-145)
[2018-07-26 11:41] LABS: CKMB 0.5 ng/mL (0-6.6)
[2018-07-26] MEDS ORDERED: Aspirin Chewable 81 MG TAB ONE (12:05)
[2018-07-26 12:29] LABS: Bilirubin Negative (Negative); Blood, Urine Negative (Negative); Clarity CLEAR (Clear); Glucose, Urine (Dipstick) Negative (Negative); Leukocyte Negative (Negative); Nitrite Negative (Negative); Protein, Urine (Dipstick) Negative (Neg-Trace); pH, Urine 6.5 (5.0-9.0)
[2018-07-26] MEDS ORDERED: Zolpidem Tartrate 5 MG TAB PO PRN (12:57)
[2018-07-26] MEDS ORDERED: Acetaminophen 325 MG TAB PO PRN (12:57)
[2018-07-26] MEDS ORDERED: Ondansetron ODT 4 MG TAB PO PRN (12:57)
--- NOTE | 2018-07-26 14:08 | HP ---
PRIMARY CARE PROVIDER: Dr. Parker. ONCOLOGIST: Dr. Rodriges. Referred to [facility] [[email or web address] Service by [facility]. The patient presents with sharp, stabbing chest pain. He says sometimes it feels like pressure. He has had increased swelling in his legs, increased shortness of breath. He was very hot with sweat last night. He felt like he was going to pass out and at one time, found himself on the floor. REVIEW OF SYSTEMS: GENERAL: Lightheadedness, possible blackout last night. No headache. No documented fever. EYES: Cannot read small print. No blurred vision, double vision, or flashing lights. ENT: Dry mouth. He had five minor nosebleeds in the past month. CARDIAC: No orthopnea or paroxysmal nocturnal dyspnea. He had some pressure and chest pain with sharp pain. RESPIRATIONS: Some cough, increased shortness of breath. No distinct wheezing. Has a history of COPD. GASTROINTESTINAL: He has had lots of nausea every other day. He is six days post chemotherapy. No emesis. No diarrhea. No abdominal pain. GENITOURINARY: He passes his urine without any pain or blood. MUSCULOSKELETAL: Swelling in legs. He has chronic severe back, hip, groin, and leg pain from radicular changes in his lumbar spine, he was planned to have surgery, but it was canceled, he does not know why. NEUROLOGIC: No stroke, seizures, or focal weakness. PSYCHIATRIC: Some anxiety, depression related to his ongoing lung cancer. SKIN: Easy bruising. No rash. HEME/LYMPH: No tender or swollen lymph nodes in the axilla, inguinal, or cervical area. PAST MEDICAL HISTORY: Lung cancer stage IV, on chemotherapy; hypertension; dyslipidemia; benign prostatic hypertrophy; and history of coronary artery disease. PAST SURGICAL HISTORY: C-spine surgery with anterior plate and lumbar surgery x3. He has had surgery on his left forearm for torn tendons and muscles, surgery on his right ankle for fracture. He has had bilateral cataract surgeries. He had lumbar biopsy 08/2017 and his last L-spine surgery was 08/2017. CURRENT MEDICATIONS: Extensive, 1. Morphine 5 mg p.o. p.r.n. 2. Methadone 10 mg 3 times a day. 3. Amlodipine 5 mg a day. 4. Metoprolol 100 mg twice a day. 5. Zocor 20 mg a day. 6. Tizanidine 4 mg twice a day. 7. Prochlorperazine 10 mg one or two tablets every 4 hours as needed. 8. Dexamethasone 4 mg twice a day. 9. [place] 10/325 one or two tablets every 6 hours for pain. 10. Aspirin 81 mg a day. 11. Lasix 20 mg a day. ALLERGIES: LISINOPRIL. FAMILY HISTORY: Mother of breast cancer, lung cancer, and liver cancer. Father is with brain cancer. He has one sister with cancer. SOCIAL HISTORY: . Full code. , next of kin. Quit smoking 2+ years ago. Drinks occasional bourbon. PHYSICAL EXAMINATION: GENERAL: He is an alert, chronically ill-appearing man. VITAL SIGNS: Blood pressure 136/67, pulse 103, respirations 16, temperature 98, and pulse ox 96 on room air. HEAD, EYES, EARS, NOSE, AND THROAT: Reveal pupils are equal and round with implants. Extraocular movements are intact. Sclerae are white. Tympanic membranes clear. Nose is clear. Oral mucous membranes are dry. Dental hygiene is adequate. CHEST: Hyper-resonant with scattered rhonchi and rales in both lower lobes. HEART: Has a regular rate and rhythm. First and second heart sounds are clear. There are no appreciated murmurs or gallops. ABDOMEN: Soft. Bowel sounds are normal. There is no hepatosplenomegaly. No mass. No rebound. EXTREMITIES: Reveal no cyanosis. He does have marked clubbing of his fingernails. He has 2 to 3+ edema in his legs. SKIN: Warm and dry with occasional ecchymoses on his arms. PULSES: Carotid, radial, and femoral pulses symmetric. Pedal pulses masked by 2 to 3+ edema. NEUROLOGIC: Cranial nerves 2 through 12 are intact. Moves all extremities. IMAGING DATA: EKG is normal, reviewed by me. Chest x-ray revealed pulmonary mass in the right upper quadrant, COPD changes, reviewed by me. CT reveals no pulmonary embolus, confirms previously known cancer. LABORATORY DATA: White count 6.7, hemoglobin 10.1, platelet count 275,000. Comprehensive metabolic profile unremarkable except for a blood sugar of 131. His troponin is 0.03. ADMITTING DIAGNOSES: 1. Chest pain. 2. Dyspnea. 3. Chronic obstructive pulmonary disease. 4. Stage IV lung cancer. 5. History of coronary artery disease. PLAN: 1. Serial enzymes. 2. DuoNeb and Zithromax. 3. COPD exacerbation. 4. Venous Doppler on both lower extremities. 5. Continue home medicines. Job ID: [id number]
[2018-07-26 14:21] VITALS: BMI 28.0
[2018-07-26 14:52] LABS: Troponin I 0.012 ng/mL (< 0.028)
--- NOTE | 2018-07-26 16:14 | ULT ---
VENOUS DOPPLER ULTRASOUND BILATERAL LOWER EXTREMITIES: CPT: 61291 ICD-10-PCS: B54D INDICATIONS: Bilateral lower extremity edema. TECHNIQUE: Color-flow Doppler, spectral wave-form analysis of pulsed Doppler, and ortiz-scale imaging with compre ssion and augmentation were used to evaluate the bilateral common femoral, femoral, popliteal, retort furnace operator ior tibial, and superficial femoral veins, and the proximal portions of the profunda femoral and grea ter saphenous veins. FINDINGS: There is appropriate compressibility and flow within the imaged deep venous system of each lower extr emity. IMPRESSION: No deep venous thrombosis. POS: OFF
[2018-07-26] MEDS ORDERED: HYDROcodone/Acetaminophen 10/325 mg Tablet PO PRN ×2 (17:49)
[2018-07-26] MEDS ORDERED: Morphine IR Tab 15 MG TAB PO PRN ×2 (17:51→17:53)
[2018-07-26 17:54] LABS: Troponin I 0.024 ng/mL (< 0.028)
[2018-07-26] MEDS ORDERED: Prochlorperazine Maleate 5 MG TAB PO PRN (17:54)
[2018-07-26] MEDS ORDERED: Ondansetron ODT 8 MG TAB PO PRN (17:54)
[2018-07-26] MEDS ORDERED: tiZANidine HCl 4 MG TAB PO PRN (17:55)
[2018-07-26] MEDS: Morphine IR Tab 15 MG TAB PO PRN ×2 (18:01→23:13)
[2018-07-26] MEDS: METHadone HCl 10 MG TAB PO SCH (20:24)
[2018-07-26] MEDS: Dexamethasone 4 MG TAB PO SCH (20:25)
[2018-07-26] MEDS: Metoprolol Tartrate 100 MG TAB PO SCH (20:25)
[2018-07-26] MEDS ORDERED: Senokot S 8.6-50 MG TAB PO PRN (20:38)
[2018-07-26] MEDS ORDERED: Methylnaltrexone 12 MG/0.6 ML VIAL SC SCH (20:45)
[2018-07-26] MEDS ORDERED: Atorvastatin Calcium 10 MG TAB PO SCH (21:00)
[2018-07-26] MEDS: Polyethylene Glycol 3350 17 GM Packet PO SCH (23:54)
[2018-07-27] MEDS ORDERED: Mag-Al 1200 mg/1200 mg/30 ML UDCUP PO PRN (00:16)
[2018-07-27 05:06] LABS: #Lymphocytes 0.5 thou/uL (1.20-3.40); #Monocytes 0.6 thou/uL (0.11-0.59); #Neutrophils 4.9 thou/uL (1.40-6.50); %Eosinophils 0.2 % (0.0-10.0); %Lymphocytes 8.7 % (21.0-51.0); %Monocytes 9.1 % (0.0-10.0); Mean Corpuscular HGB CONC 33.1 g/dL (32.0-36.0); Mean Corpuscular Hemoglobin 30.8 pg (27.0-31.0); Mean Platelet Volume 6.5 fL (7.4-10.4); Platelet Count 273 thou/uL (130-400); RBC Distribution Width 13.5 % (11.5-14.5); Red Blood Cell (RBC) Count 3.26 mill/uL (4.70-6.10)
[2018-07-27 05:17] LABS: Anion Gap 14 mmol/L (10-20); BUN (Urea Nitrogen) 9 mg/dL (8.4-25.7); Calc. Creatinine Clearance 140 mL/min (70-130); Calcium 9.5 mg/dL (7.8-10.44); Carbon Dioxide 27 mmol/L (23-31); Chloride 97 mmol/L (98-107); Estimated GFR-MDRD Greater than 90; Glucose 177 mg/dL (80-115); Potassium 3.5 mmol/L (3.5-5.1); Sodium 134 mmol/L (136-145)
[2018-07-27] MEDS: METHadone HCl 10 MG TAB PO SCH (08:22)
[2018-07-27] MEDS: Dexamethasone 4 MG TAB PO SCH (08:22)
[2018-07-27] MEDS: Metoprolol Tartrate 100 MG TAB PO SCH (08:23)
[2018-07-27] MEDS: Polyethylene Glycol 3350 17 GM Packet PO SCH (08:23)
[2018-07-27] MEDS ORDERED: Enoxaparin Sodium 40 MG/0.4 ML SYRINGE SC SCH (09:00)
[2018-07-27] MEDS ORDERED: Calcium Carbonate 600 MG TAB PO SCH (09:00)
[2018-07-27] MEDS ORDERED: Azithromycin 250 MG TAB PO SCH (09:00)
[2018-07-27] MEDS ORDERED: Furosemide 20 MG TAB PO SCH (09:00)
[2018-07-27] MEDS ORDERED: Amlodipine 5 MG TAB PO SCH (09:00)
[2018-07-27] MEDS ORDERED: Aspirin Chewable 81 MG TAB PO SCH (09:00)
[2018-07-27 12:03] VITALS: BP 144/67; TEMP 97.7
--- NOTE | 2018-07-27 23:08 | DIS ---
DATE OF ADMISSION: 07/26/2018 DATE OF DISCHARGE: 07/27/2018 CONSULTING PHYSICIANS: None. DISCHARGE DIAGNOSES: 1. Shortness of breath. 2. Chronic obstructive pulmonary disease. 3. Stage IV lung cancer. 4. Coronary artery disease. HOSPITAL COURSE: Mr. Marin is a pleasant 67-year-old man with a known stage IV lung cancer, currently undergoing chemotherapy, who presented to the ER with complaints of increased shortness of breath as well as having chest pain. He underwent serial troponins which were mildly elevated at 0.030, 0.012, 0.024. He underwent an EKG that was unremarkable. BNP was 170.1. He showed no signs of pulmonary or lower extremity edema. The patient underwent a chest x-ray which showed a right upper lung mass with chronic lung changes and interstitial fibrotic lung changes consistent with scarring. Given the presence of malignancy and chest pain, he also underwent a CT angiogram which ruled out a pulmonary embolus. He was noted to have right lung masses suspicious for malignancy with metastasis to the mediastinum as well as changes consistent with emphysema. The patient also underwent venous Doppler which was negative. He is currently undergoing chemotherapy. The patient states he last received treatment last week and is due for his next chemotherapy 2 weeks from today. He states the last restaging CT scan showed progression sometime in June. No changes have been made yet to his chemotherapy, but he states his next treatment will be given with some changes made. During his hospital stay, the patient has had no further chest pain, although he does complain of shortness of breath, which is stable. He was started on antibiotics with azithromycin to cover for any underlying lower respiratory infection. The patient complains of persistent right lower back pain and states that, that is essentially what is bothering him most at the moment. He states he has undergone lumbar surgeries in the past and was actually scheduled for surgery again due to known stenosis with persistent pain in the right SI joint region down to the groin and into his right knee. The patient states his oncologist was on board with him undergoing surgery. However, Neurosurgery has canceled the procedure. The patient states he has been trying to get in touch with his neurosurgeon to find out why this has been canceled. He has no changes, but complains of persistent pain, currently managed with morphine. He feels the lack of activity has caused him to gain weight, which in turn has caused him to feel more fatigued and deconditioned overall, therefore contributing to his shortness of breath. The patient feels well at the moment and better than he did upon initial presentation. He has no acute complaints. REVIEW OF SYSTEMS: He denies having any fevers, chills, or sweats. He did have a fever at home, which is why he called his oncologist, Dr. Rodriges, who prompted him to come to the ER. He has had no further fever since. Denies having any further chest pain. Denies any hemoptysis, but does report a cough productive for occasional white sputum. Denies having any wheezing. No abdominal pain or cramping. He has been tolerating food and liquids without difficulty. Denies having any urinary symptoms. Does suffer from constipation, managed with medications as a result of the narcotics he is on. Denies having any issues with bladder or bowel control. No new numbness or weakness. No saddle paresthesia or anesthesia. Denies having any headaches or dizziness. All other review of systems are negative. PHYSICAL EXAMINATION: GENERAL: The patient appears well developed, well nourished, he is in no acute distress. VITAL SIGNS: Temperature 97.7, pulse 78, respirations 19, O2 saturation 96% on room air, blood pressure 144/67. HEENT: Normocephalic and atraumatic. Pupils are equal, round, and reactive to light. Sclerae are without icterus. Oropharynx is clear. NECK: Supple without lymphadenopathy. LUNGS: Clear bilaterally without any wheezes, however, decreased breath sounds at the bilateral bases. CARDIAC: Regular rate and rhythm. ABDOMEN: Soft, nontender, nondistended. Normoactive bowel sounds present. EXTREMITIES: He has +1 bilateral edema without any calf tenderness. Pulses are present and equal bilaterally. SKIN: Without rash or jaundice. NEUROLOGIC: Alert and oriented x3. No neuro deficits. LABORATORY DATA: White blood count 6, hemoglobin 10, hematocrit 30.3, platelets 273, neutrophils 82. Sodium 134, potassium 3.5, BUN 9, creatinine 0.62, GFR greater than 90, glucose 177. LFTs unremarkable. Troponin 0.030, 0.012, 0.024. BNP 170. Albumin 3.6. Urinalysis notable for trace ketones, otherwise unremarkable. IMAGING DATA: 1. Chest x-ray. Right upper lobe lung mass with chronic lung changes and interstitial fibrotic lung changes consistent with scar, stable compared to recent CT study. 2. CT chest, 07/26/2018. No evidence of PE. Right pulmonary masses are suspicious for malignancy. There may be metastasis to the mediastinum. Changes consistent with emphysema seen. 3. Venogram. No evidence of DVT. PROCEDURES: None. CONDITION: Stable at discharge. DIET: Heart healthy. ACTIVITY: As tolerated. DISCHARGE MEDICATIONS: 1. The patient was given a prescription for azithromycin 500 mg p.o. daily x7 days. 2. The patient advised to resume home medications. FOLLOWUP: 1. The patient advised to follow up with his primary care physician, Dr. Parker within 1 week. Advised to follow up with Dr. Rodriges. 2. The patient will follow up with neurosurgery regarding the surgical procedure and further assessment of his persistent right back pain. Otherwise, this is to be managed with current pain regimen as per his primary care physician. DISPOSITION: The patient cleared for discharge home on 07/27/2018. The patient's case discussed with Dr. Hurst, who has also briefly seen the patient and is in agreement with plan as above. Job ID: [id number]
== END 2018-07-27 14:46 | disposition home or self-care (01) ==
LOC: ERS 09:53 → 2SW 12:09
PROVIDERS: ADMIT Internal Medicine; ATTEND Internal Medicine
DX: R06.02 Shortness of breath (principal); R07.9 Chest pain, unspecified; C34.90 Malignant neoplasm of unspecified part of unspecified bronchus or lung; I10 Essential (primary) hypertension; E78.5 Hyperlipidemia, unspecified; N40.0 Benign prostatic hyperplasia without lower urinary tract symptoms; I25.10 Atherosclerotic heart disease of native coronary artery without angina pectoris; J44.9 Chronic obstructive pulmonary disease, unspecified; Z87.891 Personal history of nicotine dependence; Z79.82 Long term (current) use of aspirin; Z79.899 Other long term (current) drug therapy; Z88.8 Allergy status to other drugs, medicaments and biological substances
CPT/HCPCS: 71045; 71275; 80048; 80053; 81003; 82553; 83605; 83880; 84484 ×2; 85025 ×2; 93005; 93970; 94640 ×3; 96361; 96372; 96374; 99285; G0378 ×2; 36415; J1650; J2212; J2270; J7620; J8540; Q0162; Q0164; Q9966

== ENCOUNTER 2018-08-09 09:43 | Outpatient (CLI) | payer MEDICARE ==
--- NOTE | 2018-08-09 11:25 | MRI ---
PRE AND POSTCONTRAST ENHANCED MRI CERVICAL SPINE: HISTORY: Lung cancer. TECHNIQUE: Multiplanar, multisequence pre and postcontrast enhanced MRI images cervical spine obtain ed. FINDINGS: Images demonstrate ACDF with fusion of the C4, C5, C6, and C7 vertebral levels. C2-3: Unremarkable. C3-4: Disc desiccation seen. Broad-based anterior and posterior osteophytes seen at this level. The broad-based posterior osteophytes compress the thecal sac resulting in moderate to severe thecal sac and moderate cord compression. There is moderate severe bilateral C3-4 neural foraminal narrowing due to uncovertebral osteophyte hypertrophy. There is bilateral facet hypertrophic and degenerative changes seen at C7-T1. There is grade 1 jon listhesis of C7 on T1. There are also bilateral pedicle and facet signal abnormalities involving the C7 and T1 vertebral lev els. These may be due to chronic degenerative changes although I cannot exclude the possibility of bilateral C7 and T1 pedicle and facet metastatic disease although this would seem less likely as thes e areas are just below the fusion level and mechanically would be optimal positions for degenerative changes rather than metastatic disease. There is a moderate degree of C7-T1 central spin al stenosis with moderate thecal sac compression. IMPRESSION: Long segment area of cervical spine fusion with proximal C3-4 changes of spondylosis. There is also C 7-T1 area of spondylosis. Metastatic disease at C7-T1 sequentially would be less likely. Findings discussed with Dr. Kaufman at 11:23 AM on 08/09/2018. Transcribed Date/Time: 08/09/2018 11:47 AM
[2018-08-09] MEDS ORDERED: Gadobenate Dimeglumine 529 MG/1 ML (20ML VIAL) ONE (14:42)
== END 2018-08-09 09:44 | disposition home or self-care (01) ==
LOC: MRI 09:43
PROVIDERS: ATTEND Internal Medicine Hematology & Oncology
DX: C34.11 Malignant neoplasm of upper lobe, right bronchus or lung (principal); M54.2 Cervicalgia; R53.1 Weakness; C79.51 Secondary malignant neoplasm of bone; M47.812 Spondylosis without myelopathy or radiculopathy, cervical region; M47.813 Spondylosis without myelopathy or radiculopathy, cervicothoracic region; Z98.1 Arthrodesis status
CPT/HCPCS: 72156; A9577

== ENCOUNTER 2018-08-11 08:08 | Outpatient (CLI) | payer MEDICARE ==
--- NOTE | 2018-08-11 09:48 | MRI ---
MRI Brain W WO Con: 08/11/2018 12:00 AM CLINICAL HISTORY: History of lung cancer, vomiting and headaches. COMPARISON: None. FINDINGS: Extra axial spaces: Normal in size and morphology for the patient's age. Acute infarction: None. Ventricular system: Normal in size and morphology for the patient's age. Basal cisterns: Normal. Cerebral parenchyma: Microvascular ischemic changes. Midline shift: None. Cerebellum: Normal. Brainstem: Normal. Paranasal sinuses:Clear. Mild right mastoid fluid. 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 IMPRESSION:No acute intracranial abnormality.
[2018-08-11] MEDS ORDERED: Gadobenate Dimeglumine 529 MG/1 ML (20ML VIAL) ONE (16:48)
== END 2018-08-11 08:09 | disposition home or self-care (01) ==
LOC: MRI 08:08
PROVIDERS: ATTEND Internal Medicine Medical Oncology
DX: C34.90 Malignant neoplasm of unspecified part of unspecified bronchus or lung (principal); R51 Headache; R11.2 Nausea with vomiting, unspecified
CPT/HCPCS: 70553; A9577

== ENCOUNTER 2018-09-28 06:50 | Day surgery (SDC) | payer MEDICARE ==
[2018-09-27 10:52] VITALS: BMI 23.8
[2018-09-28] MEDS ORDERED: Ketorolac Tromethamine 30 MG/ML VIAL ONE (08:17)
[2018-09-28] MEDS ORDERED: Bupivacaine/Epinephrine 0.25% 30 ML VIAL ONE (09:12)
[2018-09-28] MEDS ORDERED: Lidocaine 2% PF 5 ML VIAL ONE (09:13)
[2018-09-28] MEDS ORDERED: Propofol 500 MG/50 ML VIAL ONE (09:15)
[2018-09-28] MEDS ORDERED: Fentanyl 100 MCG/2 ML VIAL ONE (09:15)
[2018-09-28] MEDS ORDERED: Lidocaine 1% (PF) 30 ML VIAL ONE (09:50)
--- NOTE | 2018-09-28 12:54 | RAD ---
CHEST ONE VIEW: HISTORY: Postop. Mediport placement. COMPARISON: 07/26/2018 FINDINGS: Left-sided Mediport catheter appears to terminate in the expected region of the superior vena cava. There is no pneumothorax on this upright projection. Chronic changes in the lung parenchyma with a r ight upper lobe mass is noted. Stable cardiac silhouette. Incompletely evaluated cervical fusion lacey rdware. IMPRESSION: 1. Left-sided Mediport catheter with its tip in the expected region of the superior vena cava. 2. No pneumothorax. POS: [facility]
[2018-09-28] MEDS ORDERED: Lidocaine 1% PF 5 ML VIAL ONE (15:25)
[2018-09-28] MEDS ORDERED: PROPOFOL 200 MG/20 ML VIAL ONE (15:25)
--- NOTE | 2018-09-28 21:31 | OP ---
DATE OF PROCEDURE: 09/28/2018 PREOPERATIVE DIAGNOSIS: Right lung cancer. POSTOPERATIVE DIAGNOSIS: Right lung cancer. OPERATION PERFORMED: Left internal jugular low-profile MediPort placement and attempted left subclavian MediPort placement. ANESTHESIA: Total intravenous anesthesia with local using 0.25% Marcaine with epinephrine. INDICATIONS: The patient is a 67-year-old white male with lung cancer diagnosed about a year ago. He has been treated with chemotherapy during this time. He presents at this time for MediPort placement to facilitate further chemotherapy administration. DESCRIPTION OF OPERATION: Informed consent was obtained. The patient was taken to the operating room where total intravenous anesthesia obtained with the patient in supine position. Left chest was prepped with ChloraPrep and draped in sterile fashion. Local anesthetic was infiltrated and large gauge needle was passed under the left clavicle, attempting to find the left subclavian vein. Unfortunately, with multiple passes in multiple directions, I never entered a vascular structure. I could never find the subclavian vein, nor did I enter the subclavian artery. After attempting for a prolonged period of time, I decided to change my approach to the internal jugular vein. Although, this area had been prepped once, I prepped it again with ChloraPrep and infiltrated local anesthetic. A large gauge needle was passed easily into the left internal jugular vein. Guidewire was passed through the needle and fluoroscopically confirmed to enter the superior vena cava and the heart. A counter incision was created on the left chest after anesthetizing the areas with 0.25% Marcaine with epinephrine. Subcutaneous pocket was dissected. A tunneler was used to pass the catheter in the subcutaneous fashion from the port site on the chest up to the incision site created in the left neck. Introducer dilator was passed over the guidewire down into the superior vena cava. The guidewire and dilator were removed, and the catheter was passed through the introducer in the usual fashion. The introducer was removed in the usual peel-apart fashion. Catheter tip was confirmed to be at the atriocaval junction. The catheter was then trimmed to appropriate length and secured to the locking hub of the MediPort. The port was secured in the subcutaneous pocket with 2 interrupted sutures of 3-0 Prolene. Both incisions were closed with 3-0 and 4-0 Monocryl and Dermabond was placed externally. The port was cannulated and aspirated freely and was flushed with heparinized saline. Dermabond was placed externally on both incisions. A Booker needle was advanced into the port and was again flushed. The port was left cannulated with this extension tubing to allow for immediate chemotherapy. A sterile occlusive dressing was applied over the MediPort. The patient tolerated the procedure well and was taken to recovery room in stable condition. Job ID: [id number]
== END 2018-09-28 11:45 | disposition home or self-care (01) ==
LOC: SDC 06:50
PROVIDERS: ATTEND Specialist
PROC: 05HN33Z Insertion of Infusion Device into Left Internal Jugular Vein, Percutaneous Approach (ICD-10-PCS; principal; 2018-09-28)
DX: Z45.2 Encounter for adjustment and management of vascular access device (principal); C34.91 Malignant neoplasm of unspecified part of right bronchus or lung; I11.0 Hypertensive heart disease with heart failure; I50.9 Heart failure, unspecified; Z86.010 Personal history of colon polyps; Z98.890 Other specified postprocedural states; Z87.891 Personal history of nicotine dependence; Z88.8 Allergy status to other drugs, medicaments and biological substances; Z79.82 Long term (current) use of aspirin; Z79.899 Other long term (current) drug therapy
CPT/HCPCS: 36561; 71045; C1788; J0131; J0690; J1642; J1885; J2001; J2704; J3010

== ENCOUNTER 2018-10-03 13:13 | Outpatient (CLI) | payer MEDICARE ==
--- NOTE | 2018-10-03 13:42 | RAD ---
Exam: Single view of the pelvis HISTORY: Pelvic and hip pain COMPARISON: None FINDINGS: A single view the pelvis shows no evidence of acute fracture or dislocation. No degenerativ e changes seen in either hip. Hardware is seen in the lumbar spine. Vascular calcifications are present. IMPRESSION: No evidence of acute osseous abnormality.
== END 2018-10-03 13:14 | disposition home or self-care (01) ==
LOC: BICRAD 13:13
PROVIDERS: ATTEND Internal Medicine Medical Oncology
DX: C34.11 Malignant neoplasm of upper lobe, right bronchus or lung (principal); M53.3 Sacrococcygeal disorders, not elsewhere classified; C79.51 Secondary malignant neoplasm of bone
CPT/HCPCS: 72170

== ENCOUNTER 2018-10-13 07:54 | Outpatient (CLI) | payer MEDICARE ==
--- NOTE | 2018-10-13 12:27 | NM ---
WHOLE BODY BONE SCAN: HISTORY: Malignant neoplasm of the right upper lobe bronchus RADIOPHARMACEUTICAL: 30.5 mCi technetium-99m MDP injected intravenously. COMPARISON: None FINDINGS: There is increased uptake in the shoulders and feet consistent with degenerative changes. No other abnormal areas of tracer localization seen in the skeleton to suggest metastatic disease. Tracer excretion through the kidneys is within normal limits. IMPRESSION: No scintigraphic evidence of osseous metastatic disease.
== END 2018-10-13 07:55 | disposition home or self-care (01) ==
LOC: NM 07:54
PROVIDERS: ATTEND Internal Medicine Medical Oncology
DX: C34.11 Malignant neoplasm of upper lobe, right bronchus or lung (principal)
CPT/HCPCS: 78306; A9503

== ENCOUNTER 2018-10-24 10:14 | Outpatient (CLI) | payer MEDICARE ==
--- NOTE | 2018-10-24 11:01 | CT ---
CT of chest and abdomen performed with intravenous contrast enhancement: HISTORY: Malignant neoplasm of right upper lobe COMPARISON: 06/26/2018 study. FINDINGS: Extensive chronic lung changes are seen emphysematous type changes are present. There is al so peripheral reticular opacities compatible with scarring and evidence of honeycombing. The lobulated pleural-based right upper lobe lung mass located within the anterior segment of the rig ht upper lobe is felt to be stable in size as compared to the prior examination. It measures approximately 4.1 x 4.6 cm on the current study. There is been development of a tiny nodule in the an terior recess and measures 5 mm in size seen on axial image 19 in addition on axial image 21 where there is an area of pleural thickening there is now a pleural-based nodule measuring 16 mm in size. A pleural-based nodule seen in the right middle lobe along the anterior aspect of the right hemidiaph ragm has resolved with only some minimal central interstitial scarring remaining. Mediastinal lymph nodes are stable with several nodes measuring in the 11 to 12 mm range in the right paratracheal, aorticopulmonary and subcarinal regions. These are all unchanged since the previous study no significant axillary adenopathy. The thyroid gland is normal in appearance. CT of abdomen performed with contrast enhancement: The liver spleen pancreas and gallbladder regions appear unremarkable Right and left adrenal glands and right and left kidneys are normal size there is no significant cathy aortic or mesenteric adenopathy. Review of osseous structures show arthritic changes of the spine. Postoperative changes of the lumbar spine are seen and postoperative changes of the right iliac crest. No lytic or blastic bony changes. IMPRESSION: 1. Stable appearance to the lobulated pleural-based right upper lobe mass. 2. Development of a 15 to 16 mm pleural-based nodule also seen within the right upper lobe, there was an area of pleural thickening on the previous exam in this area but no nodular component. 3. The pleural-based area of nodularity within the right middle lobe along the anterior aspect of the right hemidiaphragm has resolved. 4. Interstitial fibrotic lung changes.
[2018-10-24] MEDS ORDERED: ISOVUE-370 76%-LOCM 1 ML ONE (13:54)
== END 2018-10-24 10:15 | disposition home or self-care (01) ==
LOC: BICCT 10:14
PROVIDERS: ATTEND Internal Medicine Medical Oncology
DX: C34.11 Malignant neoplasm of upper lobe, right bronchus or lung (principal); J92.9 Pleural plaque without asbestos; R91.8 Other nonspecific abnormal finding of lung field
CPT/HCPCS: 71260; 74160; Q9966

== ENCOUNTER 2018-10-31 12:18 | Emergency (ER) | payer MEDICARE ==
[2018-10-31 13:55] LABS: #Lymphocytes 1.3 thou/uL (1.20-3.40); #Monocytes 0.6 thou/uL (0.11-0.59); #Neutrophils 3.7 thou/uL (1.40-6.50); %Basophils 0.5 % (0.0-1.0); %Eosinophils 0.6 % (0.0-10.0); %Lymphocytes 23.8 % (21.0-51.0); %Monocytes 10.2 % (0.0-10.0); %Neutrophils 64.9 % (42.0-75.0); Hemoglobin 8.4 g/dL (14.0-18.0); Mean Corpuscular HGB CONC 32.1 g/dL (32.0-36.0); Mean Corpuscular Hemoglobin 28.7 pg (27.0-31.0); Mean Corpuscular Volume 89.2 fL (78.0-98.0); Mean Platelet Volume 7.3 fL (7.4-10.4); Platelet Count 269 thou/uL (130-400); RBC Distribution Width 17.1 % (11.5-14.5); Red Blood Cell (RBC) Count 2.94 mill/uL (4.70-6.10); White Blood Cell (WBC) Count 5.7 thou/uL (4.8-10.8)
[2018-10-31 14:01] LABS: Bilirubin Negative (Negative); Blood, Urine Negative (Negative); Clarity Clear (Clear); Glucose, Urine (Dipstick) Normal (Negative); Leukocyte Negative Leu/uL (Negative); Nitrite Negative (Negative); Protein, Urine (Dipstick) Negative (Neg-Trace); Urobilinogen Normal mg/dL (Less than 2)
[2018-10-31 14:19] LABS: ALT (SGPT) 14 U/L (8-55); AST (SGOT) 16 U/L (5-34); Albumin 3.1 g/dL (3.4-4.8); Alkaline Phosphatase 81 U/L (40-150); Anion Gap 11 mmol/L (10-20); BUN (Urea Nitrogen) 24 mg/dL (8.4-25.7); Bilirubin, Total 0.3 mg/dL (0.2-1.2); CK (CPK) 20 U/L (30-200); Calc. Creatinine Clearance 0 mL/min (70-130); Calcium 8.6 mg/dL (7.8-10.44); Carbon Dioxide 24 mmol/L (23-31); Chloride 105 mmol/L (98-107); Estimated GFR-MDRD Greater than 90; Globulin 2.1 g/dL (2.4-3.5); Glucose 93 mg/dL (80-115); Lipase 9 U/L (8-78); Potassium 3.7 mmol/L (3.5-5.1); Protein, Total 5.2 g/dL (5.8-8.1); Sodium 136 mmol/L (136-145)
--- NOTE | 2018-10-31 14:24 | RAD ---
RADIOGRAPH CHEST 1 VIEW: Date: 10/30/18 Time: 1401 HOURS HISTORY: 67-year-old male status post syncope. COMPARISON: 09/28/18. FINDINGS: Diffuse bilateral chronic interstitial lung disease. Asymmetrically greatest at left lower lung zone. Left IJ implantable vascular access port. No cardiomegaly. Right upper lobe pulmonary mass. No pneum othorax. No interval change. IMPRESSION: 1. Right upper lobe lung cancer. 2. Implantable vascular access port. 3. Chronic interstitial lung disease: pulmonary fibrosis. 4. No interval change since 09/28/18. JN [] POS: CET
[2018-10-31] MEDS ORDERED: Mag-Al 1200 mg/1200 mg/30 ML UDCUP ONE (16:34)
[2018-10-31] MEDS ORDERED: Lidocaine Viscous Sol 2% 15 ml UD Cup ONE (16:34)
[2018-10-31] MEDS ORDERED: Sucralfate 1 GM/10 ML UDCUP ONE (16:58)
== END 2018-10-31 17:42 | disposition home or self-care (01) ==
LOC: ERS 12:18
DX: E86.0 Dehydration (principal); C34.11 Malignant neoplasm of upper lobe, right bronchus or lung; G47.00 Insomnia, unspecified; E87.1 Hypo-osmolality and hyponatremia; I10 Essential (primary) hypertension; F41.9 Anxiety disorder, unspecified; F32.9 Major depressive disorder, single episode, unspecified; Z87.891 Personal history of nicotine dependence; Z79.899 Other long term (current) drug therapy
CPT/HCPCS: 71045; 80053; 81003; 82550; 83690; 84484; 85025; 93005; 94760

== ENCOUNTER 2018-11-01 11:27 | Inpatient (IN) | payer MEDICARE ==
[~2018-11-01 11:27] MED LIST changes: +Iopamidol 370 76% 50 ML VIAL FS ONE
[2018-11-01] MEDS ORDERED: Morphine 4 MG/ML VIAL ONE ×2 (11:58→20:34)
[2018-11-01] MEDS ORDERED: Ondansetron PF 4 MG/2 ML Vial ONE (11:58)
[2018-11-01 12:13] LABS: #Lymphocytes 1.5 thou/uL (1.20-3.40); #Monocytes 0.8 thou/uL (0.11-0.59); %Basophils 0.2 % (0.0-1.0); %Eosinophils 0.5 % (0.0-10.0); %Lymphocytes 17.9 % (21.0-51.0); %Monocytes 10.1 % (0.0-10.0); %Neutrophils 71.5 % (42.0-75.0); INR-International Normal Ratio 1.1; Mean Corpuscular HGB CONC 33.9 g/dL (32.0-36.0); Mean Corpuscular Hemoglobin 30.2 pg (27.0-31.0); Mean Corpuscular Volume 89.1 fL (78.0-98.0); Mean Platelet Volume 7.2 fL (7.4-10.4); PTT 37.1 SEC (22.9-36.1); Platelet Count 242 thou/uL (130-400); RBC Distribution Width 17.2 % (11.5-14.5); Red Blood Cell (RBC) Count 1.97 mill/uL (4.70-6.10); White Blood Cell (WBC) Count 8.3 thou/uL (4.8-10.8)
[2018-11-01] MEDS ORDERED: Pantoprazole 40 MG VIAL ONE (12:19)
[2018-11-01 12:28] LABS: ALT (SGPT) 14 U/L (8-55); AST (SGOT) 16 U/L (5-34); Albumin 2.6 g/dL (3.4-4.8); Alkaline Phosphatase 71 U/L (40-150); Anion Gap 10 mmol/L (10-20); BUN (Urea Nitrogen) 22 mg/dL (8.4-25.7); Bilirubin, Total 0.3 mg/dL (0.2-1.2); Calc. Creatinine Clearance 0 mL/min (70-130); Calcium 8.1 mg/dL (7.8-10.44); Carbon Dioxide 22 mmol/L (23-31); Chloride 111 mmol/L (98-107); Estimated GFR-MDRD Greater than 90; Globulin 1.8 g/dL (2.4-3.5); Glucose 108 mg/dL (80-115); Lipase 5 U/L (8-78); Potassium 3.7 mmol/L (3.5-5.1); Protein, Total 4.4 g/dL (5.8-8.1); Sodium 139 mmol/L (136-145)
--- NOTE | 2018-11-01 14:47 | CT ---
CT ABDOMEN AND PELVIS WITH ORAL AND IV CONTRAST: 11/01/18 HISTORY: Abdominal pain, bloating and vomiting. Stage IV lung cancer being treated with chemo. FINDINGS: Correlation made with the PET CT of 09/08/17. There are chronic changes in the lower lung bonilla stable since the CT chest of 10/24/18. The liver, spleen, pancreas, adrenal glands are normal. No calcified gallstones are seen. There is a nonobstructing 4 mm left renal calculus. There is a 1 cm low density lesion in the left medial renal cortex which does not meet criteria for simple cyst. No free air, free fluid or lymphadenopathy seen in the abdomen or pelvis. The small bowel loops are n ot abnormally dilated. There is fecal material in the colon. There are vascular calcifications withou t evidence of aneurysmal dilatation of the abdominal aorta. There are degenerative changes in the spi ne. Postop changes of posterior spinal fusion are present at L4, L5 and S1 levels. IMPRESSION: 1. Nonobstructing 4 mm left renal calculus. 2. Indeterminate right renal lesion. This should be evaluated with renal ultrasound. POS: OFF
[2018-11-01] MEDS ORDERED: Senokot S 8.6-50 MG TAB PO PRN (15:50)
[2018-11-01] MEDS ORDERED: Calcium Carbonate 500 MG ChewTAB PO PRN (15:50)
[2018-11-01] MEDS ORDERED: Ondansetron PF 4 MG/2 ML Vial IVP PRN (15:50)
[2018-11-01] MEDS ORDERED: Sodium Chloride 0.65% Nasal 44 ML BOT EA NARE PRN (15:50)
[2018-11-01] MEDS ORDERED: Artificial Tears 18 DROP/0.9 ML EA EYE PRN (15:50)
[2018-11-01] MEDS ORDERED: Loratadine 10 MG TAB PO PRN (15:50)
[2018-11-01] MEDS ORDERED: Cepastat Lozenges 1 LOZ PO PRN (15:50)
[2018-11-01] MEDS ORDERED: Loperamide HCl 2 MG CAP PO PRN (15:50)
[2018-11-01] MEDS ORDERED: Bisacodyl 10 MG SUPP PR PRN (15:50)
[2018-11-01] MEDS ORDERED: Ondansetron ODT 4 MG TAB PO PRN (15:50)
[2018-11-01] MEDS ORDERED: Zolpidem Tartrate 5 MG TAB PO PRN (15:50)
[2018-11-01] MEDS ORDERED: Pantoprazole 80 MG in Sodium Chloride 0.9% 100 ML IVP SCH (16:00)
[2018-11-01] MEDS ORDERED: fentaNYL 75 mcg/hour Patch TD SCH (16:00)
--- NOTE | 2018-11-01 16:16 | HP ---
PRIMARY CARE PHYSICIAN: Dr. Senait Parker. REASON FOR ADMISSION: Symptomatic anemia, upper GI bleed. HISTORY OF PRESENT ILLNESS: A 67-year-old male, who has underlying history of lung cancer. [facility] His last chemotherapy was last and he is due for next chemotherapy tomorrow. At this time, he came to emergency room because of abdominal pain in the epigastric region with bloating sensation. He had vomiting of coffee-ground material yesterday and subsequently, he was having black tarry stool. The patient was feeling fatigued, weak, tired, and he reports that he had a couple of times passing out spell at home. Today, when he was at [facility], he vomited black liquid. He denies any constipation. He does have chronic pain, but he is only taking fentanyl patch. He denies taking any NSAID. He never had this type of problem in the past. He denies any recent upper or lower endoscopy. In the emergency room, the patient was relatively hypotensive and tachycardic. His routine blood test showed hemoglobin 6. He is receiving blood transfusion. He is alert and oriented in the emergency room. We are admitting him in IMCU for close monitoring. REVIEW OF SYSTEMS: CONSTITUTIONAL: Negative for weight loss or gain, ability to conduct usual activities. SKIN: Negative for rash, itching. EYES: Negative for double vision, pain. ENT/MOUTH: Negative for nose bleeding, neck stiffness, pain, tenderness. CARDIOVASCULAR: Negative for palpitations, dyspnea on exertion, orthopnea. RESPIRATORY: Negative for shortness of breath, wheezing, cough, hemoptysis, fever or night sweats. GASTROINTESTINAL: Negative for poor appetite, abdominal pain, heartburn, nausea, vomiting, constipation, or diarrhea. GENITOURINARY: Negative for urgency, frequency, dysuria, nocturia. MUSCULOSKELETAL: Negative for pain, swelling. NEUROLOGIC/PSYCHIATRIC: Negative for anxiety, depression. ALLERGY/IMMUNOLOGIC: Negative for skin rash, bleeding tendency. Please see my HPI for pertinent positives and negatives. All other review of systems reviewed and negative except as mentioned in HPI. PAST MEDICAL HISTORY: Right lung cancer stage IV, on chemotherapy; left femoral artery clot in 2010; hypertension; dyslipidemia. PAST SURGICAL HISTORY: Left femoral artery clot removed, left upper lobectomy, right ankle surgery, multiple repairs to left wrist, back surgery, MediPort placement. PAST PSYCHIATRIC HISTORY: Anxiety and depression. SOCIAL HISTORY: The patient is a former smoker. He quit smoking few years ago. He drinks alcohol socially. He denies any other illicit drug abuse. FAMILY HISTORY: No family history of coronary artery disease, stroke, or cancer. ALLERGIES: DOMINGO INHIBITOR, GABAPENTIN. CURRENT HOME MEDICATIONS: 1. Toprol-XL 100 mg twice daily. 2. Duragesic patch 75 mcg every 72 hours. 3. Lasix 40 mg daily. 4. Potassium chloride 20 mEq p.o. daily. 5. Zanaflex 4 mg t.i.d. p.r.n. EMERGENCY ROOM COURSE: The patient has received Protonix drip. He is getting blood transfusion. Morphine 8 mg and Zofran 8 mg given. PHYSICAL EXAMINATION: VITAL SIGNS: Currently, blood pressure 107/65, pulse 116, respiratory rate 20, temperature 97.7, saturation 95% on room air, weight 73 kg. GENERAL: The patient is currently alert, awake, tachycardic, relatively hypotensive. No obvious acute distress. HEENT: Head; normocephalic, atraumatic. Eyes; pupils round, reactive to light. Extraocular muscle intact. Conjunctiva pale. ENT; oral mucous membrane within normal limits. Pale mucous membrane. NECK: Supple. No JVD. No thyromegaly. No carotid bruit. LUNGS: Clear to auscultation without any obvious rhonchi or rales. CARDIAC: S1 and S2 appears regular without any significant murmur. ABDOMEN: Soft. Epigastric discomfort noted. No organomegaly. No mass. No suprapubic tenderness. BACK: Unremarkable. No CVA tenderness. EXTREMITIES: Upper extremities; passive movement of all joints are normal. Lower extremities; no edema. Good distal pulsation. SKIN: No skin rash or pale skin. HEMATOLOGICAL SYSTEM: No lymphadenopathy. NEUROLOGIC: Nonfocal examination. He moves all 4 limbs. PSYCHIATRIC: Normal affect. SIGNIFICANT LABORATORY DATA: radiation monitor showing sinus tachycardia. CBC; WBC 8.3, hemoglobin 6.0, platelet 242. INR 1.1. BMP; sodium 139, potassium 3.7, chloride 111, carbon dioxide 22, anion gap 10, BUN 22, creatinine 0.58, glucose 108, calcium 8.1. LFT; AST 16, ALT 14, alkaline phosphatase 71, albumin 2.1, lipase 5. Abdomen and pelvis CT scan done in the emergency room, showing nonobstructive 4 mm left renal calculi, indeterminate right renal lesion. Chest x-ray done recently, showed right upper lobe lung cancer, MediPort, chronic interstitial lung disease. CT chest was done on October 24, 2018, showed stable appearance of lobulated pleural-based right upper lobe mass, pleural-based nodule. Bone scan showed no evidence of metastatic disease. ASSESSMENT AND PLAN: 1. Symptomatic anemia. 2. Acute upper gastrointestinal bleed with hematemesis and melena. 3. Anemia due to acute blood loss. 4. Stage IV right upper lobe lung cancer, on chemotherapy. 5. Chronic pain disorder, on Duragesic patch. 6. Hypertension. 7. Dyslipidemia. PLAN: Admission to [facility]. Continue Protonix drip. Consult emergency worker for upper endoscopy. Continue IV fluid with NS 100 mL/h. Transfuse 2 units of PRBC. We will hold on antihypertensive medication because of his relatively low blood pressure. We will monitor H and H and repeat labs tomorrow. DVT prophylaxis with SCD boots. GI prophylaxis with Protonix drip. CODE STATUS: The patient is full code. DISPOSITION PLAN: Based on clinical course, we are expecting the patient's stay in hospital more than 2 midnights. Plan of care discussed with the patient in detail. Job ID: [id number]
[2018-11-01 18:41] LABS: Hemoglobin 7.8 g/dL (14.0-18.0)
[2018-11-01] MEDS: Sodium Chloride 0.9% 1,000 ML IV SCH (20:41)
[2018-11-01] MEDS: Pantoprazole 80 MG in Sodium Chloride 0.9% 100 ML IVPB SCH (23:20)
[2018-11-02] MEDS: Sodium Chloride 0.9% 1,000 ML IV SCH ×3 (00:43→20:00)
[2018-11-02 01:01] LABS: #Lymphocytes 1.3 thou/uL (1.20-3.40); #Monocytes 0.9 thou/uL (0.11-0.59); #Neutrophils 4.1 thou/uL (1.40-6.50); %Basophils 0.5 % (0.0-1.0); %Eosinophils 0.4 % (0.0-10.0); %Lymphocytes 20.6 % (21.0-51.0); %Monocytes 13.9 % (0.0-10.0); %Neutrophils 64.7 % (42.0-75.0); Hemoglobin 6.9 g/dL (14.0-18.0); Mean Corpuscular HGB CONC 34.2 g/dL (32.0-36.0); Mean Corpuscular Hemoglobin 30.5 pg (27.0-31.0); Mean Corpuscular Volume 89.1 fL (78.0-98.0); Mean Platelet Volume 6.7 fL (7.4-10.4); Platelet Count 199 thou/uL (130-400); RBC Distribution Width 15.5 % (11.5-14.5); Red Blood Cell (RBC) Count 2.26 mill/uL (4.70-6.10); White Blood Cell (WBC) Count 6.4 thou/uL (4.8-10.8)
[2018-11-02 01:25] LABS: ALT (SGPT) 13 U/L (8-55); AST (SGOT) 17 U/L (5-34); Albumin 2.6 g/dL (3.4-4.8); Alkaline Phosphatase 68 U/L (40-150); Anion Gap 7 mmol/L (10-20); BUN (Urea Nitrogen) 15 mg/dL (8.4-25.7); Bilirubin, Total 0.4 mg/dL (0.2-1.2); Calc. Creatinine Clearance 127 mL/min (70-130); Calcium 8.4 mg/dL (7.8-10.44); Carbon Dioxide 24 mmol/L (23-31); Chloride 112 mmol/L (98-107); Estimated GFR-MDRD Greater than 90; Globulin 1.8 g/dL (2.4-3.5); Glucose 90 mg/dL (80-115); Potassium 3.6 mmol/L (3.5-5.1); Protein, Total 4.4 g/dL (5.8-8.1); Sodium 139 mmol/L (136-145)
[2018-11-02] MEDS: Morphine 2 MG/ML SYRINGE SLOW IVP PRN ×5 (01:50→19:54)
[2018-11-02] MEDS: HYDROcodone/Acetaminophen 5/325 mg Tablet PO PRN ×2 (11:05→15:44)
[2018-11-02 12:51] LABS: Bacteria/HPF None Seen HPF (None Seen); Bilirubin Negative (Negative); Blood, Urine Negative (Negative); Clarity Clear (Clear); Glucose, Urine (Dipstick) Normal (Negative); Leukocyte Negative Leu/uL (Negative); Nitrite Negative (Negative); Protein, Urine (Dipstick) Negative (Neg-Trace); RBC/HPF 0-3 HPF (0-3); Squamous Epithelial 0-3 HPF (0-3); Urobilinogen Normal mg/dL (Less than 2); WBC/HPF 0-3 HPF (0-3)
--- NOTE | 2018-11-02 13:22 | PDOC.HOSPP ---
- Subjective Subjective: Patient seen and examined. No new complaints. No overnight events - Objective Vital Signs & Weight: Vital Signs (12 hours) Temp Pulse Ox 11/02/18 12:09 97.9 F 11/02/18 10:42 98.0 F 11/02/18 08:00 98 11/02/18 07:11 98.1 F 11/02/18 04:00 97.6 F Weight Weight 154 lb 8 oz Most Recent Monitor Data Heart Rate from ECG 96 NIBP 125/67 NIBP BP-Mean 86 Respiration from ECG 18 SpO2 100 I&O: 11/01/18 11/02/18 11/03/18 06:59 06:59 06:59 Intake Total 1083 0 Output Total 1525 Balance -442 0 Result Diagrams: 11/02/18 00:49 11/02/18 00:49 EKG Reviewed by me: Yes ROS - Review of Systems All systems: All other ROS were reviewed and found negative. Eyes: denies: pain, vision change, conjunctivae inflammation, eyelid inflammation, redness, other ENT: denies: ear pain, ear discharge, nose pain, nose discharge, nose congestion , mouth pain, mouth swelling, throat pain, throat swelling, other Respiratory: denies: cough, dry, shortness of breath, hemoptysis, SOB with excertion, pleuritic pain, sputum, wheezing, other Cardiovascular: denies: chest pain, palpitations, orthopnea, paroxysmal noc. dyspnea, edema, light headedness, other Gastrointestinal: denies: nausea, vomitting, abdominal pain, diarrhea, constipation, melena, hematochezia, other Genitourinary: denies: dysuria, frequency, incontinence, hematuria, retention, other Musculoskeletal: denies: neck pain, shoulder pain, arm pain, back pain, hand pain, leg pain, foot pain, other Skin: denies: rash, lesions, eboni, bruising, other - Medication Medications: Active Medications Generic Name Dose Route Start Last Admin Trade Name Freq PRN Reason Stop Dose Admin Hydrocodone Bitart/Acetaminophen 1 tab 11/01/18 15:50 11/02/18 11:05 [place] 5/325 PO 1 tab Q4H PRN Administration Moderate Pain (4-6) Pantoprazole Sodium 80 mg/ 100 mls @ 10 mls/hr 11/01/18 12:30 11/01/18 23:20 Sodium Chloride IVPB 100 mls INF MARYBETH Administration Sodium Chloride 1,000 mls @ 75 mls/hr 11/02/18 08:16 11/02/18 11:07 Normal Saline 0.9% IV 1,000 mls .[id number] MARYBETH Administration Morphine Sulfate 2 mg 11/01/18 20:41 11/02/18 11:05 Morphine SLOW IVP 2 mg Q4H PRN Administration Pain Sodium Chloride 10 ml 11/01/18 21:00 11/02/18 11:06 Flush - Normal Saline IVF 10 ml Q12HR MARYBETH Administration - Exam NAD, awake alert Eye: PERRL, anicteric sclera ENT: normocephalic atraumatic, no oropharyngeal lesions Neck: symmetric, no JVD, no Thyromegaly Heart: RRR, no murmur, no gallops Respiratory: CTAB, no wheezes, no rales, no ronchi Gastrointestinal: soft, non-tender, non-distended Extremities: no cyanosis, no clubbing, no edema Skin: normal turgor, no lesions Neurological: CN's grossly intact, no focal deficits Musculoskeletal: normal tone, normal strength Psychiatric: normal affect, normal behavior Hosp A/P (1) Anemia due to acute blood loss Code(s): D62 - ACUTE POSTHEMORRHAGIC ANEMIA Status: Acute (2) Symptomatic anemia Code(s): D64.9 - ANEMIA, UNSPECIFIED Status: Acute (3) Upper GI bleed Code(s): K92.2 - GASTROINTESTINAL HEMORRHAGE, UNSPECIFIED Status: Acute (4) Back pain, chronic Code(s): M54.9 - DORSALGIA, UNSPECIFIED; G89.29 - OTHER CHRONIC PAIN Status: Chronic (5) Dyslipidemia Code(s): E78.5 - HYPERLIPIDEMIA, UNSPECIFIED Status: Chronic (6) HTN (hypertension) Code(s): I10 - ESSENTIAL (PRIMARY) HYPERTENSION Status: Chronic Qualifiers: (7) Recurrent lung adenocarcinoma Code(s): C34.90 - MALIGNANT NEOPLASM OF UNSP PART OF UNSP BRONCHUS OR LUNG Status: Chronic Qualifiers: - Plan old records reviewed/req transfuse today 1 unit PRBC consult oncology GI to do endoscopy medication reviewed as below symptomatic treatment repeat labs tomorrow [facility]
[2018-11-02] MEDS: Pantoprazole 80 MG in Sodium Chloride 0.9% 100 ML IVPB SCH (14:37)
[2018-11-02 17:28] LABS: Hemoglobin 8.5 g/dL (14.0-18.0)
--- NOTE | 2018-11-02 23:51 | CON ---
DATE OF CONSULTATION: REASON FOR CONSULT: Anemia, rule out GI bleed. Apparently, consult was put in yesterday for Dr. Irene, but it was not called until this morning at our office at 8:30 this morning. Talked to the nurse today. There was reports of anemia, but no reports of bleeding. Talked to the patient. He notes that he came to the emergency room for fatigue and not feeling well on 10/31. His hemoglobin was 8.4 at that time, down from baseline of 10, back in July. He was discharged home and then he reports at some point of time, he had a black stool on Tuesday that was on the . He also reports that he had an episode of emesis when he went to get some medicine at the [facility] that he was prescribed in the emergency room and that emesis was black. He felt worse, so he came back to the emergency room on the and his hemoglobin was lower at 6, and so he was admitted to the hospital. He was seen in the emergency room yesterday at 1500 hours. Apparently, no one from GI was called until this morning. Reviewing his labs, his hemoglobin was 7.8 at 1800 hours yesterday after up some blood and then 6.9 at midnight last night, stayed about 1 this morning on the , and he has received some blood since then. Talked to the patient. He has had no nausea or vomiting since admission. He has been n.p.o. He has had no melena or bowel movements at all since admission. PAST MEDICAL HISTORY: Notable for metastatic lung cancer on chemotherapy, left femoral artery clot in 2010, hypertension, and dyslipidemia. PAST SURGICAL HISTORY: Clot removal from left femoral artery, left upper lobe lobectomy, right ankle surgery, multiple repairs in left wrist, back surgery. He has had a MediPort placed. PSYCHIATRIC HISTORY: Anxiety and depression. SOCIAL HISTORY: Former smoker. Does drink alcohol socially. Does not use any drugs. FAMILY HISTORY: Negative for colorectal cancer or liver disease. ALLERGIES: DOMINGO INHIBITORS AND GABAPENTIN. MEDICATIONS: 1. Duragesic. 2. Toprol. 3. Lasix. 4. Potassium. 5. Zanaflex. 6. He takes Aleve 2 pills twice a day. Present medications: 1. Acetaminophen. 2. Bisacodyl. 3. Calcium carbonate. 4. Fentanyl. 5. Guaifenesin. 6. Hydrocodone. 7. Loperamide. 8. Loratadine. 9. Morphine. 10. Normal saline at 75 an hour. 11. Protonix drip. REVIEW OF SYSTEMS: No chest pain, shortness of breath, dyspnea on exertion, dysphagia, or odynophagia. He has had some weight loss due to cancer. He has never had ulcers before. He has never had a colonoscopy before. PHYSICAL EXAMINATION: VITAL SIGNS: Temperature 97, pulse 76, blood pressure 125/77, respirations 18. LUNGS: Clear. HEART: Regular rate and rhythm. ABDOMEN: Soft and nontender. Scars in left chest wall, left mid back and left buttocks. RECTAL: Reveals a very scant amount of stool in the vault, which is a little bit dark. It is not overly melenic. LABORATORY STUDIES: No hemoglobin. No blood count since about 1 this morning. INR was 1.1 yesterday. BUN 15, creatinine 0.5. Electrolytes normal. Liver function tests normal. Albumin 2.6, protein 4.4. He had a CAT scan of the abdomen and pelvis in the emergency room yesterday on the at 1100 hours with oral and IV contrast showed intermittent right renal lesion and 4 mm renal calculus. ASSESSMENT: Likely gastrointestinal bleeding, likely related to the NSAIDs. RECOMMENDATIONS: 1. Endoscopy. The OR was full this afternoon with emergencies. If he becomes unstable, we will bump other cases to proceed with EGD today. Otherwise, we will plan for EGD in the morning. 2. We will continue Protonix drip. 3. We will monitor H and H q.8 hours. Job ID: [id number]
[2018-11-03] MEDS: Pantoprazole 80 MG in Sodium Chloride 0.9% 100 ML IVPB SCH (01:51)
[2018-11-03] MEDS: Morphine 2 MG/ML SYRINGE SLOW IVP PRN ×4 (01:58→21:04)
[2018-11-03 05:09] LABS: Anion Gap 12 mmol/L (10-20); BUN (Urea Nitrogen) 8 mg/dL (8.4-25.7); Calc. Creatinine Clearance 130 mL/min (70-130); Calcium 8.5 mg/dL (7.8-10.44); Carbon Dioxide 21 mmol/L (23-31); Chloride 105 mmol/L (98-107); Estimated GFR-MDRD Greater than 90; Glucose 73 mg/dL (80-115); Potassium 3.3 mmol/L (3.5-5.1); Sodium 135 mmol/L (136-145)
[2018-11-03 05:14] LABS: Band 11 % (5-11); Hemoglobin 7.2 g/dL (14.0-18.0); Lymphocytes 13 % (21-51); MDiff Complete? YES; Mean Corpuscular HGB CONC 35.3 g/dL (32.0-36.0); Mean Corpuscular Hemoglobin 31.4 pg (27.0-31.0); Mean Corpuscular Volume 89.2 fL (78.0-98.0); Mean Platelet Volume 6.6 fL (7.4-10.4); Monocytes 16 % (0-10); Neutrophil 60 % (42-75); Platelet Count 211 thou/uL (130-400); Platelet Morphology Comment Appears Adequate; RBC Distribution Width 15.3 % (11.5-14.5); Red Blood Cell (RBC) Count 2.28 mill/uL (4.70-6.10); White Blood Cell (WBC) Count 7.1 thou/uL (4.8-10.8)
[2018-11-03] MEDS ORDERED: Morphine 2 MG/ML SYRINGE ONE (07:52)
[2018-11-03] MEDS ORDERED: fentaNYL 75 mcg/hour Patch TD SCH (09:00)
[2018-11-03] MEDS ORDERED: Potassium Chloride 20 MEQ in Premix Bag 1 BAG IVPB SCH (09:15)
[2018-11-03] MEDS ORDERED: Morphine 4 MG/ML VIAL ONE (09:34)
[2018-11-03] MEDS ORDERED: Fentanyl 100 MCG/2 ML VIAL ONE (09:45)
[2018-11-03] MEDS ORDERED: Potassium Chloride 20 MEQ in Sodium Chloride 0.9% 250 ML 250 ML IVPB SCH (10:00)
[2018-11-03] MEDS ORDERED: Ondansetron HCl/PF 4 MG/2 ML Vial IVP PRN (10:22)
[2018-11-03] MEDS ORDERED: Promethazine HCl 25 MG/ML VIAL IM PRN (10:22)
[2018-11-03] MEDS ORDERED: PACU-Morphine 4MG/ML VIAL SLOW IVP PRN (10:22)
[2018-11-03] MEDS ORDERED: Promethazine HCl 25 MG/ML VIAL SLOW IVP PRN (10:22)
[2018-11-03] MEDS: Sodium Chloride 0.9% 1,000 ML IV SCH (12:10)
--- NOTE | 2018-11-03 13:10 | OP ---
DATE OF PROCEDURE: 11/03/2018 PREOPERATIVE DIAGNOSES: 1. Gastrointestinal hemorrhage. 2. Heavy nonsteroidal anti-inflammatory drugs use. POSTOPERATIVE DIAGNOSES: 1. Erosion gastroesophageal junction, benign-appearing. 2. Multiple small ulcers in the antrum of the stomach consistent with nonsteroidal anti-inflammatory drugs effect, biopsied. 3. Duodenal bulb ulcer, 5 mm in size with visible vessel cauterized with 7-[place] heater probe for control of bleeding. 4. Duodenitis, second and third portions, likely nonsteroidal anti-inflammatory drugs related, biopsied to rule out celiac. RECOMMENDATIONS: Liquid diet. Monitor H and H, transfuse for hemoglobin less than 7. Await biopsies and change Protonix to 40 mg IV q.12 hours. ANESTHESIA: TIVA. PROCEDURE IN DETAIL: After the patient was informed of the risks, benefits, and possible complications of endoscopy including perforation, bleeding, reaction to medication, and aspiration, informed consent was obtained. The patient was brought to endoscopy suite, where he was sedated in a gradual fashion. Once he was comfortable, bite block was placed inside the orifice. The endoscope was advanced through the esophagus, stomach, and second and third portions of the duodenum and slowly removed. The esophagus was notable for a bland 4 mm erosion of the GE junction consistent with a reflux. There was no evidence of Wilson esophagus, masses, or malignancy. Remainder of the esophagus was normal. The endoscope was advanced into the stomach, where there was no blood, but there were small erosions 2 to 3 mm in size throughout the antrum consistent with NSAID effect. These were bland and white based with no bleeding. Biopsies were obtained for Helicobacter pylori. Retroflexed views in the stomach were normal. The duodenal bulb was entered. There was a small 5 mm ulcer with visible vessel nonbleeding in the anterior wall of the duodenal bulb. This was cauterized with 10-[place] heater probe and ablated. This was the likely bleeding site. The duodenum distal to this had atrophy and erosions probably from NSAID effect. Biopsies were obtained to rule out celiac. The scope was then brought back into the stomach. The duodenal bulb area was re-identified and there was no bleeding. The stomach was normal in retroflexed views with no bleeding. The scope was removed. The patient tolerated the procedure well. There were no complications. Job ID: [id number]
[2018-11-03] MEDS ORDERED: PROPOFOL 200 MG/20 ML VIAL ONE (13:50)
--- NOTE | 2018-11-03 14:32 | PDOC.HOSPP ---
- Subjective Subjective: pt up in bed complains of pain to his right hip area - Objective Vital Signs & Weight: Vital Signs (12 hours) Temp Pulse Resp BP Pulse Ox 11/03/18 12:00 97.9 F 11/03/18 08:00 98.4 F 11/03/18 07:45 99 11/03/18 04:00 99.0 F 106 H 20 103/57 L 97 Weight Admit Weight 154 lb 8 oz Weight 154 lb 8 oz Most Recent Monitor Data Heart Rate from ECG 91 NIBP 122/63 NIBP BP-Mean 82 Respiration from ECG 19 SpO2 100 I&O: 11/02/18 11/03/18 11/04/18 06:59 06:59 06:59 Intake Total 1083 2730 Output Total 1525 1950 Balance -442 780 Result Diagrams: 11/03/18 04:25 11/03/18 04:25 ROS - Review of Systems All systems: All other ROS were reviewed and found negative. ENT: denies: ear pain, ear discharge, nose pain, nose discharge, nose congestion , mouth pain, mouth swelling, throat pain, throat swelling, other Respiratory: denies: cough, dry, shortness of breath, hemoptysis, SOB with excertion, pleuritic pain, sputum, wheezing, other Cardiovascular: denies: chest pain, palpitations, orthopnea, paroxysmal noc. dyspnea, edema, light headedness, other - Medication Medications: Active Medications Generic Name Dose Route Start Last Admin Trade Name Freq PRN Reason Stop Dose Admin Hydrocodone Bitart/Acetaminophen 1 tab 11/01/18 15:50 11/02/18 15:44 [place] 5/325 PO 1 tab Q4H PRN Administration Moderate Pain (4-6) Fentanyl 75 mcg 11/03/18 09:00 11/03/18 12:08 Duragesic TD 75 mcg Q3D MARYBETH Administration Sodium Chloride 1,000 mls @ 75 mls/hr 11/02/18 08:16 11/03/18 12:10 Normal Saline 0.9% IV 1,000 mls .[id number] MARYBETH Administration Morphine Sulfate 2 mg 11/01/18 20:41 11/03/18 12:10 Morphine SLOW IVP 2 mg Q4H PRN Administration Pain Sodium Chloride 10 ml 11/01/18 21:00 11/03/18 12:10 Flush - Normal Saline IVF 10 ml Q12HR MARYBETH Administration Sodium Chloride 10 ml 11/01/18 19:03 11/03/18 01:58 Flush - Normal Saline IVF 10 ml PRN PRN Administration Saline Flush - Exam Neck: negative: supple, symmetric, no JVD, no Thyromegaly, no lymphadenopathy, no carotid bruit, JVD Heart: negative: RRR, no murmur, no gallops, no rubs, normal peripheral pulses, irregular, diminshed peripheral pulses, murmur present, II/IV, III/IV Hosp A/P (1) Anemia due to acute blood loss Code(s): D62 - ACUTE POSTHEMORRHAGIC ANEMIA Status: Acute (2) Upper GI bleed Code(s): K92.2 - GASTROINTESTINAL HEMORRHAGE, UNSPECIFIED Status: Acute (3) Back pain, chronic Code(s): M54.9 - DORSALGIA, UNSPECIFIED; G89.29 - OTHER CHRONIC PAIN Status: Chronic (4) Dyslipidemia Code(s): E78.5 - HYPERLIPIDEMIA, UNSPECIFIED Status: Chronic (5) HTN (hypertension) Code(s): I10 - ESSENTIAL (PRIMARY) HYPERTENSION Status: Chronic Qualifiers: - Plan s/p egd indicated duodenal bulb ulcer. Pt has been using NSAIDS for his right hip pain. will need additional pain meds for breakthrough pain. Nurse notified that he was found to be in svt currently ST. He still has significant pain to his right hip. Fentanyl patch has been ordered.
[2018-11-03] MEDS: HYDROcodone/Acetaminophen 5/325 mg Tablet PO PRN ×2 (17:48→23:56)
--- NOTE | 2018-11-03 17:59 | CON ---
DATE OF CONSULTATION: REASON FOR CONSULTATION: Lung cancer. 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 He last received both chemotherapy drugs on October 26, presenting to the hospital 2 days ago with GI bleed. The patient states that he has had blood in the stool off and on for a few months, but in the last couple of days prior to admission began having abdominal pain, bloating, and vomiting coffee-grounds emesis, the last time when he was at [employer] prior to coming to the ER. He also reports of passing out a few times at home. In the ER, his hemoglobin was as low as 6, he received blood transfusion and as he was relatively hypotensive and tachycardic, he was admitted to the [facility] for monitoring. He had a CT abdomen and pelvis that did not show any concerning findings. He was evaluated by Dr. Peña, who took him for an upper endoscopy, that showed a duodenal bulb ulcer with visible vessel, which was likely the site of bleeding and this was cauterized and also showed multiple small ulcers in the antrum of the stomach, likely from chronic NSAIDs. The patient has been taking Aleve twice per day the last 6 months for right hip pain. The patient states he feels better since he got to the hospital, though his chronic pains are still severe and he still feels very weak. He has had 3 blood transfusions since arrival to the hospital, and his blood count has improved from 6, up to 8.5 yesterday; however, it has trended down to 7.2 today. His blood pressure is good; however, he is still mildly tachycardic with a heart rate of 105. REVIEW OF SYSTEMS: Ten-point review of systems negative, except as per HPI. PAST MEDICAL HISTORY: Lung cancer, left femoral artery clot in 2010, hypertension, hyperlipidemia. PAST SURGICAL HISTORY: Left femoral artery clot removal, left upper lobectomy, right ankle surgery, multiple repairs to left wrist, back surgery, MediPort placement. SOCIAL HISTORY: Former smoker. Drinks socially. FAMILY HISTORY: No cancer. ALLERGIES: DOMINGO INHIBITORS, GABAPENTIN. CURRENT MEDICATIONS: Reviewed. PHYSICAL EXAMINATION: VITAL SIGNS: Temperature 97.6, saturating 98% on room air, pulse 105, blood pressure 122/83. GENERAL APPEARANCE: The patient is lying in bed, in no acute distress. HEENT: Normocephalic, atraumatic. RESPIRATIONS: Clear to auscultation bilaterally without wheezes, rales, or rhonchi. CARDIOVASCULAR: S1 and S2. Tachycardic and sinus rhythm. ABDOMEN: Mild epigastric discomfort. EXTREMITIES: Moves all extremities. SKIN: No rash. NEUROLOGIC: Cranial nerves 2 through 12 are grossly intact. PSYCHIATRIC: Awake, alert, and oriented x3 with normal affect. LABORATORY DATA: White blood cell 7.1, hemoglobin 7.2, platelets 211. Sodium 135, potassium 3.3, BUN 8, creatinine 0.54. ASSESSMENT AND PLAN: A 67-year-old male with stage IV lung cancer on Taxotere and Avastin last received October 26, presenting to the hospital with acute upper GI bleed, status post cauterization of the duodenal bulb ulcer/vessel and 3 units of packed red blood cells. His hemoglobin responded to transfusions; however, has decreased by over a gram in the last 24 hours. We will continue monitoring him at least 1 more night in the ICU and recommend transfusion for hemoglobin less than 7. The patient did not receive his weekly Taxotere yesterday; however, as all this therapy is palliative, would not recommend giving it to him today and we will just plan on giving him his weekly dose next on November 09, if he is recovered from the GI bleed. The patient is otherwise not pancytopenic and does not require any antibiotics or Neupogen at this time. Once the patient is stable from a GI bleed standpoint, he maybe discharged and follow up with Dr. Irene in the clinic. Thank you for this consult. Job ID: [id number]
[2018-11-03 18:07] LABS: Hemoglobin 7.5 g/dL (14.0-18.0); Mean Corpuscular HGB CONC 34.3 g/dL (32.0-36.0); Mean Corpuscular Volume 90.4 fL (78.0-98.0); Mean Platelet Volume 6.3 fL (7.4-10.4); Platelet Count 248 thou/uL (130-400); RBC Distribution Width 15.2 % (11.5-14.5); Red Blood Cell (RBC) Count 2.43 mill/uL (4.70-6.10); White Blood Cell (WBC) Count 7.7 thou/uL (4.8-10.8)
[2018-11-03 18:26] LABS: Band 12 % (5-11); Eosinophils 1 % (0-10); Lymphocytes 12 % (21-51); MDiff Complete? YES; Monocytes 17 % (0-10); Neutrophil 56 % (42-75); Ovalocytes SLIGHT = 2-5 cells (100X) (0-1/hpf); Platelet Morphology Comment Appears Adequate; Polychromasia SLIGHT = 2-3 cells (100X) (0-2/hpf); Reactive Lymphocytes 2 % (0-10); Tear Drops SLIGHT = 2-5 cells (100X) (0-1/hpf)
[2018-11-03] MEDS: Pantoprazole 40 MG VIAL IVP SCH (21:01)
[2018-11-04] MEDS: Sodium Chloride 0.9% 1,000 ML IV SCH ×2 (01:05→14:28)
[2018-11-04] MEDS: Morphine 2 MG/ML SYRINGE SLOW IVP PRN ×3 (01:08→13:59)
[2018-11-04 06:22] LABS: Band 3 % (5-11); Eosinophils 2 % (0-10); Hemoglobin 7.6 g/dL (14.0-18.0); Lymphocytes 9 % (21-51); MDiff Complete? YES; Mean Corpuscular HGB CONC 34.5 g/dL (32.0-36.0); Mean Corpuscular Hemoglobin 31.3 pg (27.0-31.0); Mean Corpuscular Volume 90.6 fL (78.0-98.0); Mean Platelet Volume 6.6 fL (7.4-10.4); Monocytes 14 % (0-10); Neutrophil 72 % (42-75); Platelet Count 252 thou/uL (130-400); Platelet Morphology Comment Appears Adequate; RBC Distribution Width 15.7 % (11.5-14.5); RBC Morphology Normal; Red Blood Cell (RBC) Count 2.43 mill/uL (4.70-6.10); White Blood Cell (WBC) Count 7.1 thou/uL (4.8-10.8)
[2018-11-04] MEDS: Pantoprazole 40 MG VIAL IVP SCH ×2 (09:12→21:18)
[2018-11-04] MEDS ORDERED: Senokot 8.6 MG TAB PO PRN (09:33)
[2018-11-04] MEDS ORDERED: Polyethylene Glycol 3350 17 GM Packet PO PRN (09:33)
[2018-11-04] MEDS ORDERED: Lidocaine 5% Patch TD SCH (10:00)
[2018-11-04] MEDS: Potassium Chloride 20 MEQ TAB PO SCH (10:05)
[2018-11-04] MEDS: Metoprolol Tartrate 100 MG TAB PO SCH ×2 (10:05→21:18)
[2018-11-04] MEDS: HYDROcodone/Acetaminophen 5/325 mg Tablet PO PRN (10:33)
--- NOTE | 2018-11-04 10:45 | CON ---
DATE OF CONSULTATION: HISTORY OF PRESENT ILLNESS: Jay Marin is a 67-year-old gentleman, who was admitted to the hospital with abdominal pain, distention, and vomiting. History of stage 4 lung cancer status post chemotherapy. He was found to have a GI bleed, status post endoscopy. He is now in the MICU, reason for consultation. This morning, he denies any pain or discomfort or shortness of breath. PAST MEDICAL HISTORY: Non-small cell cancer right lung, hyperlipidemia, hypertension SOCIAL HISTORY: Alcohol, minimal. Former smoker. PAST SURGICAL HISTORY: Back surgery, MediPort, left upper lobectomy, and left femoral artery surgery. MEDICATIONS: Medication from home; 1. Fentanyl patch. 2. Senokot. 3. Metoprolol 100 twice a day. 4. Lasix 40. 5. Calcium. ALLERGIES: DOMINGO, LISINOPRIL, AND GABAPENTIN. REVIEW OF SYSTEMS: Ten-point negative. PHYSICAL EXAMINATION: GENERAL: He is awake, alert, and responsive, in no distress. VITAL SIGNS: Saturations are 90% on room air, temperature 101.9, blood pressure CHEST: Decreased breath sounds. No wheezing. CARDIAC: Normal S1 and S2. No gallops. ABDOMEN: No masses. LABORATORY DATA: White count 7000, H and H 7 and 22, and platelet count is normal. His chemistry profile shows his creatinine is normal. Lytes were normal. Albumin was low at 2.6. IMPRESSION: 1. Abdominal pain, anemia, and gastrointestinal bleed secondary to nonsteroidals. 2. Metastatic lung cancer. 3. Hypertension. PLAN: Pulmonary will follow while in the MICU. At this stage, continue PT, supportive care, and neb treatment as tolerated. Consultation note, 70 minutes, 50% direct patient care. Job ID: [id number]
--- NOTE | 2018-11-04 14:53 | PRG ---
DATE OF SERVICE: 11/04/2018 SUBJECTIVE: Mr. Marin has had no further bleeding and he is tolerating a liquid diet. He does have pretty severe right hip pain. He states this has been chronic, related to his back and predated his cancer, but he has had a fentanyl patch, requiring morphine as well for pain. He has had no bleeding, nausea, or vomiting. Medications reviewed. OBJECTIVE: VITAL SIGNS: Temperature 99.6, T-max 101.9, blood pressure 111/71, and heart rate is 116. LABORATORY DATA: White count 7.1 today, hemoglobin 7.6 and stable, platelet count is 252. Sodium 135, potassium 3.3, BUN and creatinine are 8 and 0.54. ASSESSMENT AND PLAN: 1. Gastrointestinal bleed, resolved, related to duodenal ulcers, likely related to NSAIDs, status post definitive treatment, now on PPIs. 2. Lung cancer. 3. Severe right hip pain. This may be related to his chronic back disease, but some consideration should be given to relation to bone mets from his lung cancer and degree of pain he is having and pain requirements. 4. Fever. It is unclear what this is related to, it has not recurred. If it does, he probably should have a chest x-ray and evaluation, it could be tumor fever. 5. Duodenal ulcer. We would continue IV Protonix q.12 for now. 6. Mild tachycardia of unclear etiology. We will defer to Internal Medicine. There are no signs of ongoing blood loss to cause this. Job ID: [id number]
--- NOTE | 2018-11-04 15:10 | PDOC.HOSPP ---
- Subjective Subjective: Pt seen for followup re: duodenal ulcer. Pt c/o pain in right hip. - Objective Vital Signs & Weight: Vital Signs (12 hours) Temp Pulse Ox 11/04/18 11:17 99.6 F 11/04/18 08:17 95 11/04/18 07:37 101.9 F H 11/04/18 04:00 98.9 F Weight Admit Weight 154 lb 8 oz Weight 154 lb 8 oz Most Recent Monitor Data Heart Rate from ECG 77 NIBP 123/57 NIBP BP-Mean 79 Respiration from ECG 13 SpO2 92 I&O: 11/03/18 11/04/18 11/05/18 06:59 06:59 06:59 Intake Total 2730 2850 Output Total 1950 1910 675 Balance 780 940 -675 Result Diagrams: 11/04/18 05:33 11/03/18 04:25 Additional Labs: MARs and labs reviewed by me EKG Reviewed by me: Yes (Tele: sinus tachycardia) ROS - Review of Systems All systems: All other ROS were reviewed and found negative. Respiratory: denies: cough, dry, shortness of breath, hemoptysis, SOB with excertion, pleuritic pain, sputum, wheezing Cardiovascular: denies: chest pain, palpitations, orthopnea, paroxysmal noc. dyspnea, edema, light headedness Musculoskeletal: reports: other (right hip pain) - Medication Medications: Active Medications Generic Name Dose Route Start Last Admin Trade Name Freq PRN Reason Stop Dose Admin Hydrocodone Bitart/Acetaminophen 1 tab 11/01/18 15:50 11/04/18 10:33 [place] 5/325 PO 1 tab Q4H PRN Administration Moderate Pain (4-6) Fentanyl 75 mcg 11/03/18 09:00 11/03/18 12:08 Duragesic TD 75 mcg Q3D MARYBETH Administration Sodium Chloride 1,000 mls @ 75 mls/hr 11/02/18 08:16 11/04/18 14:28 Normal Saline 0.9% IV 1,000 mls .[id number] MARYBETH Administration Lidocaine 1 patch 11/04/18 10:00 11/04/18 10:34 Lidoderm 5% Patch TD 11/04/18 22:00 1 patch Q24H MARYBETH Administration Metoprolol Tartrate 100 mg 11/04/18 09:00 11/04/18 10:05 Lopressor PO 100 mg 0900,2100 MARYBETH Administration Morphine Sulfate 2 mg 11/01/18 20:41 11/04/18 13:59 Morphine SLOW IVP 2 mg Q4H PRN Administration Pain Pantoprazole Sodium 40 mg 11/03/18 21:00 11/04/18 09:12 Protonix IVP 40 mg Q12HR MARYBETH Administration Potassium Chloride 20 meq 11/04/18 09:00 11/04/18 10:05 K-Dur PO 20 meq DAILY MARYBETH Administration Sodium Chloride 10 ml 11/01/18 21:00 11/04/18 09:13 Flush - Normal Saline IVF 10 ml Q12HR MARYBETH Administration Sodium Chloride 10 ml 11/01/18 19:03 11/03/18 01:58 Flush - Normal Saline IVF 10 ml PRN PRN Administration Saline Flush - Exam NAD Eye: anicteric sclera ENT: moist mucosa Neck: supple Heart: no rubs (S1, S2, tachy) Respiratory: CTAB Gastrointestinal: soft Skin: no lesions Neurological: no weakness Psychiatric: normal affect Hosp A/P (1) Duodenal ulcer Status: Acute (2) Back pain, chronic Code(s): M54.9 - DORSALGIA, UNSPECIFIED; G89.29 - OTHER CHRONIC PAIN Status: Chronic (3) HTN (hypertension) Code(s): I10 - ESSENTIAL (PRIMARY) HYPERTENSION Status: Chronic Qualifiers: (4) Recurrent lung adenocarcinoma Code(s): C34.90 - MALIGNANT NEOPLASM OF UNSP PART OF UNSP BRONCHUS OR LUNG Status: Chronic Qualifiers: (5) Symptomatic anemia Code(s): D64.9 - ANEMIA, UNSPECIFIED Status: Resolved (6) Anemia due to acute blood loss Code(s): D62 - ACUTE POSTHEMORRHAGIC ANEMIA Status: Resolved - Plan PT/OT, out of bed/ambulate, DVT proph w/SCDs Continue Protonix. Hemoglobin stable. BP controlled. Trial lidocaine patch for pain, consult pain service. Pt to follow up with oncology and GI services after discharge.
[2018-11-04] MEDS ORDERED: diphenhydrAMINE 25 MG CAP PO PRN (16:42)
[2018-11-04] MEDS ORDERED: Ondansetron PF 4 MG/2 ML Vial IVP PRN (16:42)
[2018-11-04] MEDS ORDERED: Naloxone HCl 0.4 mg/ml Vial IV PRN (16:42)
[2018-11-04] MEDS ORDERED: diphenhydrAMINE 50 MG/ML VIAL IM PRN (16:42)
[2018-11-04] MEDS ORDERED: Promethazine HCl 25 MG/ML VIAL IM PRN (16:42)
[2018-11-04] MEDS ORDERED: Zolpidem Tartrate 5 MG TAB PO PRN (16:42)
[2018-11-04] MEDS ORDERED: diphenhydrAMINE 50 MG/ML VIAL IVP PRN (16:42)
[2018-11-04] MEDS ORDERED: Communication Order-Pharmacy FS SCH (16:45)
[2018-11-04] MEDS ORDERED: fentaNYL 75 mcg/hour Patch TD SCH (17:15)
[2018-11-04] MEDS: fentaNYL Citrate/PF 2,000 MCG in Sodium Chloride 0.9% 60 ML IV PRN (17:50)
[2018-11-04] MEDS ORDERED: Lidocaine Patch Removal 1 EACH TOP SCH (22:00)
[2018-11-05] MEDS: Sodium Chloride 0.9% 1,000 ML IV SCH ×2 (05:27→17:29)
[2018-11-05] MEDS: Potassium Chloride 20 MEQ TAB PO SCH (09:04)
[2018-11-05] MEDS: Pantoprazole 40 MG VIAL IVP SCH ×2 (09:04→21:16)
[2018-11-05] MEDS: Furosemide 20 MG TAB PO SCH (09:04)
[2018-11-05] MEDS: Calcium Carbonate 600 MG TAB PO SCH (09:04)
[2018-11-05] MEDS: Metoprolol Tartrate 100 MG TAB PO SCH ×2 (09:08→21:16)
--- NOTE | 2018-11-05 09:32 | PRG ---
DATE OF SERVICE: 11/05/2018 SUBJECTIVE: This morning, he is awake, alert, and responsive. No distress. OBJECTIVE: VITAL SIGNS: Saturations 100% on 2 L, temperature 98, blood pressure 120/61, and respirations 18. CHEST: No wheezing or crackles. CARDIAC: Normal S1 and S2. No gallops. ABDOMEN: Soft. No masses. IMPRESSION: Status post gastrointestinal bleed, status post endoscopy, duodenal ulcers, and history of lung cancer. PLAN: Pulmonary sheldon, at this stage, continue supportive care, PT, and neb treatments. As tolerated. We will follow. Job ID: [id number]
[2018-11-05 09:49] LABS: Hemoglobin 6.5 g/dL (14.0-18.0); Mean Corpuscular HGB CONC 33.2 g/dL (32.0-36.0); Mean Corpuscular Hemoglobin 29.7 pg (27.0-31.0); Mean Corpuscular Volume 89.4 fL (78.0-98.0); Mean Platelet Volume 6.4 fL (7.4-10.4); Platelet Count 253 thou/uL (130-400); RBC Distribution Width 14.8 % (11.5-14.5); White Blood Cell (WBC) Count 8.8 thou/uL (4.8-10.8)
[2018-11-05 10:13] LABS: Anion Gap 8 mmol/L (10-20); BUN (Urea Nitrogen) 7 mg/dL (8.4-25.7); Calc. Creatinine Clearance 131 mL/min (70-130); Carbon Dioxide 25 mmol/L (23-31); Chloride 102 mmol/L (98-107); Estimated GFR-MDRD Greater than 90; Glucose 147 mg/dL (80-115); Potassium 3.5 mmol/L (3.5-5.1); Sodium 131 mmol/L (136-145)
--- NOTE | 2018-11-05 12:42 | PDOC.HOSPP ---
- Subjective Subjective: Pt seen for followup re: duodenal ulcer. Reports on and off right hip pain. - Objective Vital Signs & Weight: Vital Signs (12 hours) Temp Pulse Ox 11/05/18 11:22 99.6 F 11/05/18 07:33 98.4 F 11/05/18 06:28 100 11/05/18 04:00 99.4 F Weight Admit Weight 154 lb 8 oz Weight 156 lb 4.8 oz Most Recent Monitor Data Heart Rate from ECG 122 NIBP 111/47 NIBP BP-Mean 68 Respiration from ECG 15 SpO2 88 I&O: 11/04/18 11/05/18 11/06/18 06:59 06:59 06:59 Intake Total 2850 2350 Output Total 1910 3105 Balance 940 -755 Result Diagrams: 11/05/18 09:31 11/05/18 09:31 EKG Reviewed by me: Yes (Tele: NSR) ROS - Review of Systems All systems: All other ROS were reviewed and found negative. Respiratory: denies: cough, dry, shortness of breath, hemoptysis, SOB with excertion, pleuritic pain, sputum, wheezing Cardiovascular: denies: chest pain, palpitations, orthopnea, paroxysmal noc. dyspnea, edema, light headedness Gastrointestinal: denies: nausea, vomitting, abdominal pain, diarrhea, constipation, melena, hematochezia Musculoskeletal: reports: other (right hip pain) - Medication Medications: Active Medications Generic Name Dose Route Start Last Admin Trade Name Freq PRN Reason Stop Dose Admin Calcium Carbonate 600 mg 11/05/18 09:00 11/05/18 09:04 Caltrate PO 600 mg DAILY MARYBETH Administration Fentanyl 75 mcg 11/04/18 17:15 11/04/18 18:19 Duragesic TD Not Given Q3D MARYBETH Furosemide 40 mg 11/05/18 09:00 11/05/18 09:04 Lasix PO 40 mg DAILY MARYBETH Administration Sodium Chloride 1,000 mls @ 75 mls/hr 11/02/18 08:16 11/05/18 05:27 Normal Saline 0.9% IV 1,000 mls .[id number] MARYBETH Administration Fentanyl Citrate 2,000 mcg/ 100 mls @ 0 mls/hr 11/04/18 16:42 11/04/18 17:50 Sodium Chloride IV 100 mls INF PRN Administration Pain As Directed Metoprolol Tartrate 100 mg 11/04/18 09:00 11/05/18 09:08 Lopressor PO 100 mg 0900,2100 MARYBETH Administration Pantoprazole Sodium 40 mg 11/03/18 21:00 11/05/18 09:04 Protonix IVP 40 mg Q12HR MARYBETH Administration Potassium Chloride 20 meq 11/04/18 09:00 11/05/18 09:04 K-Dur PO 20 meq DAILY MARYBETH Administration Sodium Chloride 10 ml 11/01/18 21:00 11/05/18 09:05 Flush - Normal Saline IVF 10 ml Q12HR MARYBETH Administration Sodium Chloride 10 ml 11/01/18 19:03 11/03/18 01:58 Flush - Normal Saline IVF 10 ml PRN PRN Administration Saline Flush - Exam NAD Eye: anicteric sclera ENT: normocephalic atraumatic Neck: supple Heart: RRR, no rubs Respiratory: CTAB, no wheezes Musculoskeletal: normal tone Psychiatric: normal affect Hosp A/P (1) Duodenal ulcer Status: Acute (2) Back pain, chronic Code(s): M54.9 - DORSALGIA, UNSPECIFIED; G89.29 - OTHER CHRONIC PAIN Status: Chronic (3) HTN (hypertension) Code(s): I10 - ESSENTIAL (PRIMARY) HYPERTENSION Status: Chronic Qualifiers: (4) Recurrent lung adenocarcinoma Code(s): C34.90 - MALIGNANT NEOPLASM OF UNSP PART OF UNSP BRONCHUS OR LUNG Status: Chronic Qualifiers: - Plan out of bed/ambulate, DVT proph w/SCDs Hemoglobin dropped to 6.5, transfuse one unit pRBC. Pt has been started on ROLL FINISHER by pain service. Continue Protonix 40 mg IV BID. Sodium 131 today, continue to follow lytes.
[2018-11-05 12:49] LABS: Band 6 % (5-11); Elliptocytes SLIGHT = 2-5 cells (100X) (0-1/hpf); Hypochromia SLIGHT = 6-15 cells (100X) (0-5/hpf); Lymphocytes 6 % (21-51); MDiff Complete? YES; Monocytes 8 % (0-10); Neutrophil 79 % (42-75); Platelet Morphology Comment Appears Adequate; Schistocytes SLIGHT = 2-5 cells (100X) (0-1/hpf)
--- NOTE | 2018-11-05 16:40 | PRG ---
DATE OF SERVICE: 11/05/2018 SUBJECTIVE: Mr. Marin has some nausea. He has been started on a IT ACCOUNT MANAGER pump for his right hip pain. Remains on fentanyl patch as well furosemide 40 daily, Lopressor, Zofran, Protonix 40 IV q.12, normal saline 75 an hour. OBJECTIVE: VITAL SIGNS: Temperature 99.2, T-max 101.9 yesterday morning, 100.3 yesterday evening; blood pressure 105/46. NEUROLOGIC: He has little bit altered mental status. He has difficulty to express his thoughts, but is nonfocal neurologically. LUNGS: Clear. HEART: Regular rate and rhythm. ABDOMEN: Nontender. LABORATORY DATA: White count 8.2, hemoglobin 6.5, platelet count 253. BUN and creatinine are 7 and 0.5. Sodium 131, potassium 3.5. ASSESSMENT: 1. Duodenal ulcer. No signs of bleeding at this time with normal BUN. 2. Drop in hemoglobin. This may be equilibration or could represent retroperitoneal other source of bleeding. He does have severe right hip pain. 3. Severe right hip pain with no signs of metastatic disease on bone scan earlier in October, seems to be out of proportion musculoskeletal pain. 4. History of metastatic lung cancer. RECOMMENDATIONS: 1. Image of the right hip. 2. Transfuse. 3. Drop Protonix to once a day. We will follow. Job ID: [id number]
[2018-11-06 04:50] LABS: Anion Gap 13 mmol/L (10-20); BUN (Urea Nitrogen) 7 mg/dL (8.4-25.7); Calc. Creatinine Clearance 127 mL/min (70-130); Calcium 8.3 mg/dL (7.8-10.44); Carbon Dioxide 22 mmol/L (23-31); Chloride 102 mmol/L (98-107); Estimated GFR-MDRD Greater than 90; Glucose 114 mg/dL (80-115); Potassium 3.5 mmol/L (3.5-5.1); Sodium 133 mmol/L (136-145)
[2018-11-06 04:56] LABS: Hypochromia SLIGHT = 6-15 cells (100X) (0-5/hpf); Lymphocytes 5 % (21-51); MDiff Complete? YES; Mean Corpuscular HGB CONC 33.5 g/dL (32.0-36.0); Mean Corpuscular Hemoglobin 30.6 pg (27.0-31.0); Mean Corpuscular Volume 91.3 fL (78.0-98.0); Mean Platelet Volume 6.6 fL (7.4-10.4); Monocytes 6 % (0-10); Neutrophil 89 % (42-75); Platelet Count 264 thou/uL (130-400); Platelet Morphology Comment Appears Decreased; RBC Distribution Width 14.8 % (11.5-14.5); Red Blood Cell (RBC) Count 2.62 mill/uL (4.70-6.10); White Blood Cell (WBC) Count 8.5 thou/uL (4.8-10.8)
[2018-11-06] MEDS: Diabetic Tussin 200 MG/10 ML UDCUP PO PRN (05:33)
[2018-11-06] MEDS: Sodium Chloride 0.9% 1,000 ML IV SCH (06:10)
[2018-11-06] MEDS: Furosemide 20 MG TAB PO SCH (09:50)
[2018-11-06] MEDS: Pantoprazole 40 MG VIAL IVP SCH (09:50)
[2018-11-06] MEDS: Metoprolol Tartrate 100 MG TAB PO SCH ×2 (09:50→20:15)
[2018-11-06] MEDS: Potassium Chloride 20 MEQ TAB PO SCH (09:50)
[2018-11-06] MEDS: Calcium Carbonate 600 MG TAB PO SCH (09:51)
--- NOTE | 2018-11-06 12:54 | PRG ---
DATE OF SERVICE: 11/06/2018 SUBJECTIVE: Mr. Marin has had no further bleeding. His pain is controlled in his right hip, but he is on a STRIKER OFF pump for it. He has had no overt bleeding. His nurse notes he is eating about 35% of meals. OBJECTIVE: VITAL SIGNS: Temperature is 98, blood pressure 103/48, pulse 89. The patient is afebrile. Respirations 12. GENERAL: He is confused. LUNGS: Clear. ABDOMEN: Soft and nontender. LABORATORY DATA: White count is 8.5, hemoglobin 8, platelet count 264. Sodium 133, potassium 3.5, BUN and creatinine 7 and 0.56. The patient received 1 unit of blood yesterday. ASSESSMENT: 1. Gastrointestinal bleed from multiple small ulcers in the antrum and duodenal bulb, likely NSAID related, biopsies pending. No signs of acute bleeding. 2. Drop in hemoglobin yesterday of unclear etiology. There were no signs of gastrointestinal blood loss. He has received 3 units of blood to hemoglobin over 8 from 6.5, that may have been spuriously incorrect blood count. 3. Confusion. This may be related to pain medications or underlying malignancy. 4. Underlying lung malignancy. 5. Chronic back pain on the right, apparently not related to malignancy or metastatic disease, but chronic back disease. RECOMMENDATIONS: 1. Change PPI to p.o. 2. Avoid NSAIDs. 3. We will follow from a distance. 4. We will check him on biopsies. Job ID: [id number]
[2018-11-06] MEDS: fentaNYL Citrate/PF 2,000 MCG in Sodium Chloride 0.9% 60 ML IV PRN (16:01)
--- NOTE | 2018-11-06 18:21 | PDOC.HOSPP ---
- Subjective Subjective: Pt seen for followup re: duodenal ulcer. Pt denies chest pain, c/o right hip pain. - Objective Vital Signs & Weight: Vital Signs (12 hours) Temp Pulse Pulse BP BP BP Pulse Ox 11/06/18 15:23 98.7 F 11/06/18 15:08 97 97 124/64 117/56 L 11/06/18 10:41 98.9 F 11/06/18 08:39 103/48 L 11/06/18 08:00 95 11/06/18 07:15 98.9 F Pulse Ox Pulse Ox 11/06/18 15:23 11/06/18 15:08 93 L 97 11/06/18 10:41 11/06/18 08:39 11/06/18 08:00 11/06/18 07:15 Weight Admit Weight 154 lb 8 oz Weight 155 lb 11.2 oz Most Recent Monitor Data Heart Rate from ECG 111 NIBP 124/63 NIBP BP-Mean 83 Respiration from ECG 19 SpO2 87 I&O: 11/05/18 11/06/18 11/07/18 06:59 06:59 06:59 Intake Total 2350 3200 680 Output Total 3105 2230 1700 Balance -755 970 -1020 Result Diagrams: 11/06/18 04:12 11/06/18 04:12 Additional Labs: labs and MARs reviewed by me EKG Reviewed by me: Yes (Tele: NSR) ROS - Review of Systems All systems: All other ROS were reviewed and found negative. Cardiovascular: denies: chest pain, palpitations, orthopnea, paroxysmal noc. dyspnea, edema, light headedness Gastrointestinal: denies: nausea, vomitting, abdominal pain, diarrhea, constipation, melena, hematochezia - Medication Medications: Active Medications Generic Name Dose Route Start Last Admin Trade Name Freq PRN Reason Stop Dose Admin Calcium Carbonate 600 mg 11/05/18 09:00 11/06/18 09:51 Caltrate PO 600 mg DAILY MARYBETH Administration Fentanyl 75 mcg 11/04/18 17:15 11/04/18 18:19 Duragesic TD Not Given Q3D MARYBETH Furosemide 40 mg 11/05/18 09:00 11/06/18 09:50 Lasix PO 40 mg DAILY MARYBETH Administration Guaifenesin 200 mg 11/01/18 15:50 11/06/18 05:33 Robitussin Sf PO 200 mg Q4H PRN Administration Cough Sodium Chloride 1,000 mls @ 30 mls/hr 11/02/18 08:16 11/06/18 06:10 Normal Saline 0.9% IV Not Given .Q24H MARYBETH Fentanyl Citrate 2,000 mcg/ 100 mls @ 0 mls/hr 11/04/18 16:42 11/06/18 16:01 Sodium Chloride IV 100 mls INF PRN Administration Pain As Directed Metoprolol Tartrate 100 mg 11/04/18 09:00 11/06/18 09:50 Lopressor PO 100 mg 09,2099 MARYBETH Administration Potassium Chloride 20 meq 11/04/18 09:00 11/06/18 09:50 K-Dur PO 20 meq DAILY MARYBETH Administration Sodium Chloride 10 ml 11/01/18 21:00 11/06/18 09:51 Flush - Normal Saline IVF 10 ml Q12HR MARYBETH Administration Sodium Chloride 10 ml 11/01/18 19:03 11/03/18 01:58 Flush - Normal Saline IVF 10 ml PRN PRN Administration Saline Flush - Exam NAD Eye: PERRL ENT: moist mucosa Neck: supple Heart: RRR Respiratory: CTAB Gastrointestinal: soft Skin: normal turgor Psychiatric: normal affect Hosp A/P (1) Duodenal ulcer Status: Acute (2) Back pain, chronic Code(s): M54.9 - DORSALGIA, UNSPECIFIED; G89.29 - OTHER CHRONIC PAIN Status: Chronic (3) HTN (hypertension) Code(s): I10 - ESSENTIAL (PRIMARY) HYPERTENSION Status: Chronic Qualifiers: (4) Recurrent lung adenocarcinoma Code(s): C34.90 - MALIGNANT NEOPLASM OF UNSP PART OF UNSP BRONCHUS OR LUNG Status: Chronic Qualifiers: - Plan old records reviewed/req, PT/OT, out of bed/ambulate Pt reeceived pRBC transfusion yesterday, hemoglobin improved. Pt is on GENERALIST for hip pain. Obtain records from his orthopedic surgeon re: workup for hip pain. Continue PPI.
[2018-11-06] MEDS ORDERED: Gabapentin 100 MG CAP PO SCH (21:00)
[2018-11-07 04:29] LABS: Anion Gap 12 mmol/L (10-20); BUN (Urea Nitrogen) 6 mg/dL (8.4-25.7); Calc. Creatinine Clearance 126 mL/min (70-130); Calcium 8.5 mg/dL (7.8-10.44); Carbon Dioxide 26 mmol/L (23-31); Chloride 102 mmol/L (98-107); Estimated GFR-MDRD Greater than 90; Glucose 108 mg/dL (80-115); Potassium 3.2 mmol/L (3.5-5.1)
[2018-11-07 04:42] LABS: Sodium 137 mmol/L (136-145)
[2018-11-07 04:46] LABS: Band 3 % (5-11); Hemoglobin 7.4 g/dL (14.0-18.0); Lymphocytes 15 % (21-51); MDiff Complete? YES; Mean Corpuscular HGB CONC 33.8 g/dL (32.0-36.0); Mean Corpuscular Hemoglobin 30.7 pg (27.0-31.0); Mean Corpuscular Volume 90.6 fL (78.0-98.0); Mean Platelet Volume 6.4 fL (7.4-10.4); Monocytes 18 % (0-10); Neutrophil 64 % (42-75); Platelet Count 289 thou/uL (130-400); Platelet Morphology Comment Appears Adequate; RBC Distribution Width 15.1 % (11.5-14.5); White Blood Cell (WBC) Count 8.1 thou/uL (4.8-10.8)
[2018-11-07] MEDS: Sodium Chloride 0.9% 1,000 ML IV SCH (04:49)
[2018-11-07] MEDS: Acetaminophen 325 MG TAB PO PRN (09:27)
[2018-11-07] MEDS: Furosemide 20 MG TAB PO SCH (09:27)
[2018-11-07] MEDS: Calcium Carbonate 600 MG TAB PO SCH (09:28)
[2018-11-07] MEDS: Metoprolol Tartrate 100 MG TAB PO SCH ×2 (09:28→21:31)
[2018-11-07] MEDS: Potassium Chloride 20 MEQ TAB PO SCH (09:28)
[2018-11-07] MEDS ORDERED: Pregabalin 50 MG CAP PO SCH (13:00)
--- NOTE | 2018-11-07 13:42 | PRG ---
DATE OF SERVICE: 11/07/2018 SERVICE: Pulmonary Medicine. INTERVAL HISTORY: The patient indicates that his breathing is actually doing okay. He feels much improved compared to when he came into the hospital. He did not have any other overnight events other than a black stool which was quite small. No fresh blood is coming out of anywhere. He is increasing his mobility through time. Otherwise, there has been no significant change to his condition. PHYSICAL EXAMINATION: VITAL SIGNS: Afebrile currently. He had a maximum temperature yesterday evening of 99.7, pulse 86, blood pressure 124/55, respirations 25, and saturation 98% on 2 L nasal cannula currently. HEENT: Normocephalic and atraumatic. Sclerae white. Conjunctivae pink. Oral mucosa is moist without lesions. LUNGS: Decent air entry. Crackles are present. Slightly prolonged expiratory phase, but no wheezing is appreciated. HEART: Normal rate. Regular. ABDOMEN: Soft, nontender, and nondistended. Bowel sounds are positive. MUSCULOSKELETAL: No cyanosis or clubbing. There is no edema throughout. If anything, he is touch to skin tenting. : No Swain. NEUROLOGIC: Grossly nonfocal. LABORATORY DATA: Hemoglobin is trickling down to 7.4. WBC 8.1, hemoglobin [id number]. INR 1.1. Sodium 133 and gently uptrending, bicarb 22. Basic metabolic profile is otherwise unremarkable/stable. Creatinine 0.56. Urinalysis is negative. In total, 4 units of blood have been transfused. ASSESSMENT: 1. Acute blood loss anemia. 2. Peptic ulcer disease. 3. Stage IV lung cancer, on current chemotherapy. DISCUSSION AND PLAN: I am going to repeat hemoglobin right now. If this is stable, he could be considered for transition out of the hospital. He is slightly volume up. IV fluids will be interrupted. A dose of Lasix will be considered particularly if his hemoglobin is stable. That being said, from a purely respiratory perspective, the patient could be discharged today. Job ID: [id number]
--- NOTE | 2018-11-07 14:03 | RAD ---
RIGHT HIP TWO VIEWS: HISTORY: Right hip pain. COMPARISON: 10/31/2017 FINDINGS: Mild osteoarthritic changes are again seen. No fracture, dislocation, or bony destruction is identif ied. There are postop changes of metallic hardware in the lower lumbar spine/upper sacrum. There is contr ast in the rectosigmoid. IMPRESSION: Mild right hip osteoarthritis. POS: OFF
[2018-11-07] MEDS: fentaNYL 100 mcg/hour Patch TD SCH (14:18)
--- NOTE | 2018-11-07 15:32 | PDOC.PALCO ---
Palliative Care Consult - Consult Details Requesting Physician: Dr Hurst Reason for Consult: goals of care, assistance with communication prognosis/ disease Family Members Present: No Family at bedside, communication with daughter via phone - Pertinent HPI Mr Marin with lung cancer, receiving chemo therapy. Patient presented to the emergency room with abdominal pain, with episode of coffee ground emesis and black tarry stool the day before. Patient reported an increase in weakness and fatigue with syncope episodes at home. In the emergency room patient denies use of NSAIDs but after communicating with family, and patient confirmed he does consume alcohol. Although patient was admitted with a hemoglobin of 6, hypotension and tachycardia. Today patient has improved euvolmic state and H&H was obtained while I was assessing patent. Patient reports chronic pain, non-specific at time of assessment. Although patient denies shortness of breath accessory muscle use was noted with conversation. Denies nausea/vomiting/tarry or loose stools. Continues with weakness. - Pertinent PMH [place] CA/Right lung IV, femoral artery 2010, hypertension, dyslipidemia, anxiety , depression. - Social History Smoking Status: Former smoker Smoking: cigarettes Alcohol Use: heavy Drug Use History: none Living Situation: independent - Medications MAR Reviewed: Yes - Allergies Allergies/Adverse Reactions: Allergies Allergy/AdvReac Type Severity Reaction Status Date / Time DOMINGO Inhibitors Allergy Verified 11/02/18 03:50 lisinopril Allergy Swollen Verified 11/02/18 03:50 Lips gabapentin AdvReac edema, Verified 11/02/18 03:50 redness to legs - Subjective Patient awake alert. Push of speech with extensive conversation. 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 Chronically ill appearing. Dentures are now loose fitting, patient removed during discussion as they were "loose" and causing discomfort. - Objective Vital Signs: Vital Signs - Most Recent Temp Pulse Resp BP Pulse Ox 98.4 F 97 20 124/64 97 11/07/18 10:35 11/06/18 15:08 11/06/18 04:00 11/06/18 15:08 11/07/18 08:00 Palliative Performance Scale: 50 - Physical Exam Constitutional: NAD Deviation from normal: Pallor, weakness HEENT: moist MMs, EOMI Deviation from normal: Adventicious lung sounds primarily on expiration, Weak productive cough Cardiovascular: RRR Gastrointestinal: soft, non-tender, positive bowel sounds Musculoskeletal: no edema Psychiatric: A&O x 3 Deviation from normal: Tearful at times Deviation from normal: Brusing, fragile skin - Problem List (1) Palliative care encounter Code(s): Z51.5 - ENCOUNTER FOR PALLIATIVE CARE Current Visit: Yes Status: Acute (2) Upper GI bleed Code(s): K92.2 - GASTROINTESTINAL HEMORRHAGE, UNSPECIFIED Current Visit: Yes Status: Acute (3) Recurrent lung adenocarcinoma Code(s): C34.90 - MALIGNANT NEOPLASM OF UNSP PART OF UNSP BRONCHUS OR LUNG Current Visit: Yes Status: Chronic Qualifiers: (4) Symptomatic anemia Code(s): D64.9 - ANEMIA, UNSPECIFIED Current Visit: Yes Status: Resolved - Plan/Recommendations Plan: Initial visit was to establish relationship with patient, discussing his disease prognosis. *Follow up to further discuss Alcohol consumption as patient daughter states it is heavy and impacts patient. Neighbor who has helped with Mr Marin in the past refuses to help in the future secondary to excessive alcohol use. *Follow up 11/08 to further discuss DNAR status and patient expections and understanding of potential outcomes. *Discuss possible solutions for patient if he has an increase in weakness related to disease trajectory that impacts his ability to care for self [60] minutes spent on this encounter with >50% of the time in counseling and coordination of care. Thank you for this very appropriate consult.
--- NOTE | 2018-11-07 15:39 | PDOC.HOSPP ---
- Subjective Subjective: Pt seen for followup re:duodenal ulcer. More alert today, says he feels okay. - Objective Vital Signs & Weight: Vital Signs (12 hours) Temp Pulse Ox 11/07/18 15:28 98.5 F 11/07/18 10:35 98.4 F 11/07/18 08:00 97 11/07/18 07:15 98.8 F 11/07/18 03:39 98.9 F Weight Admit Weight 154 lb 8 oz Weight 153 lb 6.4 oz Most Recent Monitor Data Heart Rate from ECG 96 NIBP 96/69 NIBP BP-Mean 78 Respiration from ECG 22 SpO2 91 I&O: 11/06/18 11/07/18 11/08/18 06:59 06:59 06:59 Intake Total 3200 1255 Output Total 2230 1975 Balance 970 -720 Result Diagrams: 11/07/18 14:57 11/07/18 03:55 Additional Labs: Labs and MARs reviewed by me EKG Reviewed by me: Yes (Tele: NSR) ROS - Review of Systems All systems: All other ROS were reviewed and found negative. Gastrointestinal: denies: nausea, vomitting, abdominal pain, diarrhea, constipation, melena, hematochezia Genitourinary: denies: dysuria, frequency, incontinence, hematuria, retention Musculoskeletal: reports: other (right hip pain) - Medication Medications: Active Medications Generic Name Dose Route Start Last Admin Trade Name Freq PRN Reason Stop Dose Admin Acetaminophen 650 mg 11/01/18 15:50 11/07/18 09:27 Tylenol PO 650 mg Q4H PRN Administration Headache/Fever/Mild Pain (1-3) Calcium Carbonate 600 mg 11/05/18 09:00 11/07/18 09:28 Caltrate PO 600 mg DAILY MARYBETH Administration Fentanyl 100 mcg 11/07/18 12:45 11/07/18 14:18 Duragesic TD 100 mcg Q3D MARYBETH Administration Furosemide 40 mg 11/05/18 09:00 11/07/18 09:27 Lasix PO 40 mg DAILY MARYBETH Administration Guaifenesin 200 mg 11/01/18 15:50 11/06/18 05:33 Robitussin Sf PO 200 mg Q4H PRN Administration Cough Fentanyl Citrate 2,000 mcg/ 100 mls @ 0 mls/hr 11/04/18 16:42 11/06/18 16:01 Sodium Chloride IV 100 mls INF PRN Administration Pain As Directed Metoprolol Tartrate 100 mg 11/04/18 09:00 11/07/18 09:28 Lopressor PO 100 mg 0900,2100 MARYBETH Administration Pantoprazole Sodium 40 mg 11/07/18 09:00 11/07/18 09:27 Protonix PO 40 mg DAILY MARYBETH Administration Potassium Chloride 20 meq 11/04/18 09:00 11/07/18 09:28 K-Dur PO 20 meq DAILY MARYBETH Administration Sodium Chloride 10 ml 11/01/18 21:00 11/07/18 09:28 Flush - Normal Saline IVF 10 ml Q12HR MARYBETH Administration Sodium Chloride 10 ml 11/01/18 19:03 11/03/18 01:58 Flush - Normal Saline IVF 10 ml PRN PRN Administration Saline Flush - Exam NAD Eye: anicteric sclera ENT: moist mucosa Neck: supple Heart: RRR Respiratory: CTAB Gastrointestinal: soft Musculoskeletal: normal tone Psychiatric: normal affect Hosp A/P (1) Duodenal ulcer Status: Acute (2) Back pain, chronic Code(s): M54.9 - DORSALGIA, UNSPECIFIED; G89.29 - OTHER CHRONIC PAIN Status: Chronic (3) HTN (hypertension) Code(s): I10 - ESSENTIAL (PRIMARY) HYPERTENSION Status: Chronic Qualifiers: (4) Recurrent lung adenocarcinoma Code(s): C34.90 - MALIGNANT NEOPLASM OF UNSP PART OF UNSP BRONCHUS OR LUNG Status: Chronic Qualifiers: - Plan Continue to trend hemoglobin. Transfuse pRBC as needed. Check R hip x-rays.
--- NOTE | 2018-11-07 19:29 | PRG ---
DATE OF SERVICE: 11/07/2018 SUBJECTIVE: Mr. Marin still complains of right hip pain. He did have an x-ray done, which apparently showed severe osteoarthritis. Hemoglobin 7.4 this morning, is 8 yesterday, and 7 this afternoon. He told the nurse that he had 1 bowel movement today, it looked like old blood. He is eating somewhat 50%, OBJECTIVE: VITAL SIGNS: Pulse 115 to 79 over the past 24 hours, no trend, sporadic; blood pressure 132/65. ABDOMEN: Soft and nontender. There is no rebound or guarding. EXTREMITIES: There is no clubbing, cyanosis, or edema. LABORATORY STUDIES: Hemoglobin 6.5 on the , he got a unit of blood. It was 8 on , it was 7.4 on the and 7 this afternoon. ASSESSMENT AND PLAN: Bleed from duodenal ulcer noted on 11/03/2018 EGD, visible vessel, treated with injection likely NSAID. Biopsies of duodenum were normal and from the stomach showed no evidence of H. pylori. BUN continues to drop down, from 22 down to 7. It does not appear to be any signs of active upper GI bleeding. RECOMMENDATIONS: Continue PPI therapy. Pain control. If he continues to have severe pain in right hip, it maybe reasonable to scan this. X-rays apparently did not show anything besides severe arthritis. If he continues to drop his hemoglobin or have worsening pain, consider possibly retroperitoneal bleeding, although he did have a CAT scan on 11/01 that showed no overt lesions in this region. Job ID: [id number]
[2018-11-07] MEDS: Pregabalin 50 MG CAP PO SCH (21:30)
[2018-11-08 05:45] LABS: #Eosinphils 0.1 thou/uL (0.0-0.7); #Lymphocytes 1.4 thou/uL (1.20-3.40); #Monocytes 1.3 thou/uL (0.11-0.59); #Neutrophils 6.8 thou/uL (1.40-6.50); %Basophils 0.1 % (0.0-1.0); %Eosinophils 0.8 % (0.0-10.0); %Lymphocytes 14.3 % (21.0-51.0); %Monocytes 13.7 % (0.0-10.0); %Neutrophils 71.1 % (42.0-75.0); Hemoglobin 8.4 g/dL (14.0-18.0); Mean Corpuscular HGB CONC 33.2 g/dL (32.0-36.0); Mean Corpuscular Hemoglobin 30.6 pg (27.0-31.0); Mean Corpuscular Volume 92.1 fL (78.0-98.0); Mean Platelet Volume 6.5 fL (7.4-10.4); Platelet Count 319 thou/uL (130-400); RBC Distribution Width 14.8 % (11.5-14.5); Red Blood Cell (RBC) Count 2.76 mill/uL (4.70-6.10); White Blood Cell (WBC) Count 9.6 thou/uL (4.8-10.8)
[2018-11-08 06:05] LABS: Anion Gap 11 mmol/L (10-20); BUN (Urea Nitrogen) 7 mg/dL (8.4-25.7); Calc. Creatinine Clearance 127 mL/min (70-130); Calcium 8.9 mg/dL (7.8-10.44); Carbon Dioxide 26 mmol/L (23-31); Chloride 102 mmol/L (98-107); Estimated GFR-MDRD Greater than 90; Glucose 100 mg/dL (80-115); Potassium 3.3 mmol/L (3.5-5.1); Sodium 136 mmol/L (136-145)
[2018-11-08] MEDS: Calcium Carbonate 600 MG TAB PO SCH (09:52)
[2018-11-08] MEDS: Pregabalin 50 MG CAP PO SCH ×2 (09:53→20:43)
[2018-11-08] MEDS: Potassium Chloride 20 MEQ TAB PO SCH (09:54)
[2018-11-08] MEDS: Furosemide 20 MG TAB PO SCH (09:54)
[2018-11-08] MEDS: Metoprolol Tartrate 100 MG TAB PO SCH ×3 (09:54→20:53)
--- NOTE | 2018-11-08 10:52 | CT ---
CT RIGHT LOWER EXTREMITY WITHOUT CONTRAST: Date: 11/08/18 HISTORY: Hip pain. Evaluate for metastatic disease. Lung cancer. COMPARISON: Radiograph of right hip dated 11/07/18. FINDINGS: Bones: No acute fracture or malalignment. Small acetabular osteophyte formation. Mild narrowing of the pubic symphysis. Incomplete evaluation of what appears to be anostosis of the left pubic body. No definite osteolytic or osteoblastic lesions are appreciated. Mild vascular calcifications. Muscles: Muscle bulk is normal. Soft Tissues: Unremarkable. There is enteric contrast within the rectum. No adenopathy. IMPRESSION: 1. No evidence of osseous metastatic disease. 2. Mild degenerative change. 3. Mild gluteus medius enthesopathic change. POS: [facility]
[2018-11-08 15:45] LABS: Hemoglobin 7.9 g/dL (14.0-18.0)
--- NOTE | 2018-11-08 17:00 | PRG ---
DATE OF SERVICE: 11/08/2018 SERVICE: Pulmonary Medicine. INTERVAL HISTORY: The patient is doing fine from respiratory standpoint. He denies any current chest pain, fevers, cough, nausea, or vomiting. We sat him up on the side of the bed and his heart rate shot up from 90 to 120. He cannot provide any additional elements of the history currently. Otherwise, there has been no interval change to his condition. PHYSICAL EXAMINATION: VITAL SIGNS: Afebrile with a T-max of 100.2. Pulse 93, blood pressure 125/55, respirations 18, and saturation 100% on 2 L nasal cannula. GENERAL: The patient is awake and alert, in no apparent distress. LUNGS: There is decreased air entry and a prolonged expiratory phase. Rhonchi and wheezing are both present. No crackles are appreciated. HEART: Normal rate, regular. ABDOMEN: Soft, nontender, and nondistended. Bowel sounds are positive. MUSCULOSKELETAL: No cyanosis or clubbing. There is no pitting in the bilateral lower extremities. NEUROLOGIC: Grossly nonfocal. LABORATORY DATA: Hemoglobin 7.9 and gently downtrending still. That being said, it represents an appropriate rise compared to where we were yesterday. CBC and basic metabolic profile are otherwise unremarkable, though his potassium is 3.3. IMAGIN. CT of the lower extremity demonstrates no evidence of osseous metastatic disease. Mild degenerative changes. Mild gluteus medius changes. 2. Hip x-ray demonstrates mild hip osteoarthritis. ASSESSMENT: 1. Acute blood loss anemia. 2. Peptic ulcer disease. 3. Stage IV lung cancer, on chemotherapy. DISCUSSION AND PLAN: I will replace the potassium. We will check magnesium and phosphorus level tomorrow morning. We will need to continue to trend his hemoglobins to make certain they stabilize. We will continue to transfuse him to keep his hemoglobins above 7. Job ID: [id number]
--- NOTE | 2018-11-08 18:20 | PDOC.HOSPP ---
- Subjective Subjective: Pt seen for followup re: duodenal ulcer. c/o ongoing R hip pain. - Objective Vital Signs & Weight: Vital Signs (12 hours) Temp Pulse Ox 11/08/18 15:01 98.7 F 11/08/18 11:03 98.4 F 11/08/18 08:00 99 11/08/18 07:17 100.2 F H Weight Admit Weight 154 lb 8 oz Weight 153 lb 3.2 oz Most Recent Monitor Data Heart Rate from ECG 93 NIBP 125/55 NIBP BP-Mean 78 Respiration from ECG 18 SpO2 100 I&O: 11/07/18 11/08/18 11/09/18 06:59 06:59 06:59 Intake Total 1255 1730 Output Total 1975 900 Balance -720 830 Result Diagrams: 11/08/18 15:38 11/08/18 05:32 Additional Labs: Labs and MARs reviewed by me EKG Reviewed by me: Yes (Tele: NSR) ROS - Review of Systems All systems: All other ROS were reviewed and found negative. Cardiovascular: denies: chest pain, palpitations, orthopnea, paroxysmal noc. dyspnea, edema, light headedness Gastrointestinal: denies: nausea, vomitting, abdominal pain, diarrhea, constipation, melena, hematochezia Musculoskeletal: reports: other (right hip pain) - Medication Medications: Active Medications Generic Name Dose Route Start Last Admin Trade Name Freq PRN Reason Stop Dose Admin Acetaminophen 650 mg 11/01/18 15:50 11/07/18 09:27 Tylenol PO 650 mg Q4H PRN Administration Headache/Fever/Mild Pain (1-3) Calcium Carbonate 600 mg 11/05/18 09:00 11/08/18 09:52 Caltrate PO 600 mg DAILY MARYBETH Administration Fentanyl 100 mcg 11/07/18 12:45 11/07/18 14:18 Duragesic TD 100 mcg Q3D MARYBTEH Administration Furosemide 40 mg 11/05/18 09:00 11/08/18 09:54 Lasix PO 40 mg DAILY MARYBETH Administration Guaifenesin 200 mg 11/01/18 15:50 11/06/18 05:33 Robitussin Sf PO 200 mg Q4H PRN Administration Cough Fentanyl Citrate 2,000 mcg/ 100 mls @ 0 mls/hr 11/04/18 16:42 11/06/18 16:01 Sodium Chloride IV 100 mls INF PRN Administration Pain As Directed Metoprolol Tartrate 100 mg 11/04/18 09:00 11/08/18 09:54 Lopressor PO 100 mg 0900,2100 MARYBETH Administration Pantoprazole Sodium 40 mg 11/07/18 09:00 11/08/18 09:54 Protonix PO 40 mg DAILY MARYBETH Administration Potassium Chloride 20 meq 11/04/18 09:00 11/08/18 09:54 K-Dur PO 20 meq DAILY MARYBETH Administration Potassium Chloride 40 meq 11/08/18 17:00 11/08/18 17:07 Klor-Con PO 11/08/18 19:00 40 meq NOW MARYBETH Administration Pregabalin 50 mg 11/07/18 21:00 11/08/18 09:53 Lyrica PO 50 mg BID MARYBETH Administration Sodium Chloride 10 ml 11/01/18 21:00 11/08/18 09:54 Flush - Normal Saline IVF 10 ml Q12HR MARYBETH Administration Sodium Chloride 10 ml 11/01/18 19:03 11/03/18 01:58 Flush - Normal Saline IVF 10 ml PRN PRN Administration Saline Flush - Exam NAD ENT: normocephalic atraumatic Neck: supple Heart: RRR Respiratory: CTAB Gastrointestinal: soft, non-tender Psychiatric: normal affect, normal behavior Hosp A/P (1) Duodenal ulcer Status: Acute (2) Back pain, chronic Code(s): M54.9 - DORSALGIA, UNSPECIFIED; G89.29 - OTHER CHRONIC PAIN Status: Chronic (3) HTN (hypertension) Code(s): I10 - ESSENTIAL (PRIMARY) HYPERTENSION Status: Chronic Qualifiers: (4) Recurrent lung adenocarcinoma Code(s): C34.90 - MALIGNANT NEOPLASM OF UNSP PART OF UNSP BRONCHUS OR LUNG Status: Chronic Qualifiers: - Plan PT/OT, out of bed/ambulate Continue IV PPI. Check CT R hip. Monitor hemoglobin, transfuse as needed.
--- NOTE | 2018-11-08 19:37 | PRG ---
DATE OF SERVICE: 11/08/2018 SUBJECTIVE: Mr. Marin does not eat much. He is a little bit down. The oncologist really responding to chemotherapy and he is not sure what he is going to do. OBJECTIVE: VITAL SIGNS: Temperature is 100.2 max, T-current 98.7, pulse 114, blood pressure 91/54. ABDOMEN: Nontender. LABORATORY DATA: Hemoglobin is 8.4 and 10.9 this evening. His hemoglobin was 7 yesterday, and he got a unit of blood. BUN and creatinine are 7 and 0.55. ASSESSMENT AND PLAN: Gastrointestinal bleed secondary to ulcer, resolved. Hemoglobin is stable. Continue PPI. We will follow along with you. Job ID: [id number]
[2018-11-08] MEDS: fentaNYL Citrate/PF 2,000 MCG in Sodium Chloride 0.9% 60 ML IV PRN (19:38)
--- NOTE | 2018-11-09 00:37 | CON ---
DATE OF CONSULTATION: The patient continues to feel weak and is short of breath. He remains afebrile. Hemoglobin today is about the same as it was yesterday. He tends to desaturate. I reviewed his CT scan. At best, he has stable disease, though has a nodule in the right lung which seems to be more prominent, so his response at best will be either slight progression of possibly progressive disease. The patient has been on Avastin and Taxotere. Avastin could be related to the GI bleed and he will not receive Avastin in future. I talked about resuming Taxotere, but he was not really sure about it and I elected not to order his chemotherapy for tomorrow. I also discussed the option of DNR, the patient was unable to make a decision. I expect that he will continue to do poorly with or without addition of chemotherapy. Job ID: [id number]
[2018-11-09 05:12] LABS: #Eosinphils 0.1 thou/uL (0.0-0.7); #Lymphocytes 1.3 thou/uL (1.20-3.40); #Monocytes 1.3 thou/uL (0.11-0.59); #Neutrophils 6.5 thou/uL (1.40-6.50); %Basophils 0.3 % (0.0-1.0); %Eosinophils 0.8 % (0.0-10.0); %Lymphocytes 13.8 % (21.0-51.0); %Monocytes 14.2 % (0.0-10.0); %Neutrophils 70.9 % (42.0-75.0); Hemoglobin 7.6 g/dL (14.0-18.0); Mean Corpuscular HGB CONC 33.2 g/dL (32.0-36.0); Mean Corpuscular Hemoglobin 30.2 pg (27.0-31.0); Mean Platelet Volume 6.3 fL (7.4-10.4); Platelet Count 324 thou/uL (130-400); RBC Distribution Width 15.1 % (11.5-14.5); Red Blood Cell (RBC) Count 2.53 mill/uL (4.70-6.10); White Blood Cell (WBC) Count 9.2 thou/uL (4.8-10.8)
[2018-11-09 05:29] LABS: Phosphorus 3.2 mg/dL (2.3-4.7)
[2018-11-09 05:32] LABS: Anion Gap 11 mmol/L (10-20); BUN (Urea Nitrogen) 9 mg/dL (8.4-25.7); Calc. Creatinine Clearance 126 mL/min (70-130); Calcium 8.7 mg/dL (7.8-10.44); Carbon Dioxide 28 mmol/L (23-31); Chloride 102 mmol/L (98-107); Estimated GFR-MDRD Greater than 90; Glucose 114 mg/dL (80-115); Magnesium 1.2 mg/dL (1.6-2.6); Potassium 3.5 mmol/L (3.5-5.1); Sodium 137 mmol/L (136-145)
[2018-11-09] MEDS ORDERED: Magnesium Sulfate 4 GM in Sodium Chloride 0.9% 250 ML 250 ML IVPB SCH (09:15)
[2018-11-09] MEDS: Calcium Carbonate 600 MG TAB PO SCH (09:31)
[2018-11-09] MEDS: Potassium Chloride 20 MEQ TAB PO SCH (09:31)
[2018-11-09] MEDS: Metoprolol Tartrate 100 MG TAB PO SCH (09:31)
[2018-11-09] MEDS: Pregabalin 50 MG CAP PO SCH ×2 (09:31→20:14)
[2018-11-09 10:42] VITALS: BMI 22.6
--- NOTE | 2018-11-09 11:30 | PRG ---
DATE OF SERVICE: 11/09/2018 SERVICE: Pulmonary Medicine. INTERVAL HISTORY: The patient is doing okay from respiratory standpoint. Breathing comfortably. No complaints of nausea, vomiting, fevers, or chills. His strength is improving a little bit today. He got some bad news. Apparently, he is no longer going to be a candidate for chemotherapy moving forward. As such, he felt that this was kind of like a sentence. I have suggested to him that at this point, he will do better without chemotherapy than with it, that is why it is being interrupted. We still do not know how much longer he has to live and could still live for several months if not longer. Otherwise, he has not had any significant bleeding that he is aware of. PHYSICAL EXAMINATION: VITAL SIGNS: Afebrile with a T-max of 100.3 overnight. Pulse 105, blood pressure 126/64, respirations 15, saturation 95% on 4 L nasal cannula. GENERAL: The patient is awake and alert, in no apparent distress. LUNGS: Much improved air entry today. There is no prolonged expiratory phase or wheezing appreciated. HEART: Normal rate, regular. ABDOMEN: Soft, nontender, nondistended. Bowel sounds are positive. MUSCULOSKELETAL: No cyanosis or clubbing. There is 1+ pitting in the bilateral lower extremities. NEUROLOGIC: Grossly nonfocal. LABORATORY DATA: Hemoglobin 7.6 and continuing to trickle downward, platelets 324,000, WBC 9.2. Magnesium 1.2, phosphorus 3.2. Basic metabolic profile is otherwise unremarkable. His potassium is 3.5. ASSESSMENT: 1. Acute blood loss anemia. 2. Peptic ulcer disease. 3. Stage IV lung cancer, no longer candidate for chemotherapy based on functional status. 4. Chronic obstructive pulmonary disease without current exacerbation. 5. Chronic hypoxic respiratory failure. DISCUSSION AND PLAN: The patient's hemoglobin continues to trickle down ever so slightly. This is probably just redistribution related. He can be transitioned to the floor. Case Management is working on getting him to a rehabilitation facility. If his hemoglobin is stable tomorrow, he will be a candidate for transition out. Job ID: [id number]
[2018-11-09] MEDS ORDERED: HYDROcodone/Acetaminophen 10/325 mg Tablet PO PRN (12:03)
[2018-11-09 12:39] LABS: Hemoglobin 7.6 g/dL (14.0-18.0)
[2018-11-09] MEDS ORDERED: Potassium Chloride 20 MEQ TAB PO SCH (13:00)
[2018-11-09] MEDS: Acetaminophen 325 MG TAB PO PRN (13:07)
--- NOTE | 2018-11-09 15:06 | PDOC.PALPN ---
Palliative Progress Note - Subjective Patient states "today has been a bad day". Several physicians have visited with patient and discussed his chronic disease processes and trajectory towards limited treatment measures. COntinues with generalized pain, shortness of breath weakness. All other ROS negative - Objective Vital Signs: Vital Signs - Most Recent Temp Pulse Resp BP Pulse Ox 98.6 F 111 H 23 H 100/54 L 98 11/09/18 15:03 11/07/18 23:08 11/07/18 23:08 11/07/18 23:08 11/09/18 08:00 - Physical Exam Constitutional: NAD Deviation from normal: Chronically ill appearing HEENT: PERRLA, moist MMs, EOMI Deviation from normal: Labored respirations, weak productive cough Gastrointestinal: soft, non-tender Musculoskeletal: pulses present Deviation from normal: Pallor, brusing. - Assessment (1) Palliative care encounter Code(s): Z51.5 - ENCOUNTER FOR PALLIATIVE CARE Current Visit: Yes Status: Acute (2) Upper GI bleed Code(s): K92.2 - GASTROINTESTINAL HEMORRHAGE, UNSPECIFIED Current Visit: Yes Status: Acute (3) Recurrent lung adenocarcinoma Code(s): C34.90 - MALIGNANT NEOPLASM OF UNSP PART OF UNSP BRONCHUS OR LUNG Current Visit: Yes Status: Chronic Qualifiers: (4) Symptomatic anemia Code(s): D64.9 - ANEMIA, UNSPECIFIED Current Visit: Yes Status: Resolved - Plan Plan: Discussed with patient at length what he desires. He states he wantes "freedom" we discussed what that looks like for him. He would like to return home, and be with his dog "zaria". Discussed if patient continues to drink, he denies. He states he did before his but does not now. I discussed with Mr Marin the implications if he did decide to continue to drink and impact on his quality of life. We discussed Hospice, he is open to this and I will follow up tomorrow. *Revisit DNAR and OOHDNAR status *Revisit Hospcie and Have choice letter signed *Pain control that will be able to carry forth to home for pain management. * Skyla Jiang RN to follow up and communicate with Mr Tellez daughter. [60] minutes spent on this encounter with >50% of the time in counseling and coordination of care.
--- NOTE | 2018-11-09 17:44 | PDOC.HOSPP ---
- Subjective Subjective: got desaturated when I saw him this am, spo2 came up promptly when he wore his nasal canula was hypotensive in the 80's, repeat measurement on supine position its around 100 had black stool last evening, no mabel blood. - Objective Vital Signs & Weight: Vital Signs (12 hours) Temp Pulse Pulse BP BP Pulse Ox Pulse Ox 11/09/18 15:03 98.6 F 11/09/18 14:48 92 98 108/72 95/54 L 92 L 11/09/18 11:53 98.8 F 11/09/18 08:00 98.4 F 98 Pulse Ox 11/09/18 15:03 11/09/18 14:48 89 L 11/09/18 11:53 11/09/18 08:00 Weight Admit Weight 154 lb 8 oz Weight 153 lb 3.2 oz Most Recent Monitor Data Heart Rate from ECG 89 NIBP 112/65 NIBP BP-Mean 80 Respiration from ECG 12 SpO2 97 I&O: 11/08/18 11/09/18 11/10/18 06:59 06:59 06:59 Intake Total 1730 1590 0 Output Total 900 1280 100 Balance 830 310 -100 Result Diagrams: 11/09/18 12:27 11/09/18 04:58 ROS - Review of Systems All systems: All other ROS were reviewed and found negative. - Medication Medications: Active Medications Generic Name Dose Route Start Last Admin Trade Name Freq PRN Reason Stop Dose Admin Acetaminophen 650 mg 11/01/18 15:50 11/09/18 13:07 Tylenol PO 650 mg Q4H PRN Administration Headache/Fever/Mild Pain (1-3) Calcium Carbonate 600 mg 11/05/18 09:00 11/09/18 09:31 Caltrate PO 600 mg DAILY MARYBETH Administration Fentanyl 100 mcg 11/07/18 12:45 11/07/18 14:18 Duragesic TD 100 mcg Q3D MARYBETH Administration Furosemide 40 mg 11/05/18 09:00 11/08/18 09:54 Lasix PO 40 mg DAILY MARYBETH Administration Guaifenesin 200 mg 11/01/18 15:50 11/06/18 05:33 Robitussin Sf PO 200 mg Q4H PRN Administration Cough Fentanyl Citrate 2,000 mcg/ 100 mls @ 0 mls/hr 11/04/18 16:42 11/08/18 19:38 Sodium Chloride IV 100 mls INF PRN Administration Pain As Directed Metoprolol Tartrate 100 mg 11/04/18 09:00 11/09/18 09:31 Lopressor PO 100 mg 0900,2100 MARYBETH Administration Pantoprazole Sodium 40 mg 11/07/18 09:00 11/09/18 09:32 Protonix PO 40 mg DAILY MARYBETH Administration Potassium Chloride 20 meq 11/04/18 09:00 11/09/18 09:31 K-Dur PO 20 meq DAILY MARYBETH Administration Pregabalin 50 mg 11/07/18 21:00 11/09/18 09:31 Lyrica PO 50 mg BID MARYBETH Administration Sodium Chloride 10 ml 11/01/18 21:00 11/09/18 09:32 Flush - Normal Saline IVF 10 ml Q12HR MARYBETH Administration Sodium Chloride 10 ml 11/01/18 19:03 11/03/18 01:58 Flush - Normal Saline IVF 10 ml PRN PRN Administration Saline Flush - Exam awake alert, ill appearing Eye: PERRL, anicteric sclera ENT: no oropharyngeal lesions, dry oral mucosa Neck: supple, no JVD Heart: RRR, no gallops Respiratory: no wheezes, rhonchi Gastrointestinal: soft, non-tender, normal bowel sounds Extremities: no clubbing, no edema Neurological: CN's grossly intact, no focal deficits Psychiatric: normal affect, A&O x 3 Hosp A/P (1) GI bleed Code(s): K92.2 - GASTROINTESTINAL HEMORRHAGE, UNSPECIFIED Status: Acute Qualifiers: GI bleed type/associated pathology: unspecified gastrointestinal hemorrhage type Qualified Code(s): K92.2 - Gastrointestinal hemorrhage, unspecified (2) Dyslipidemia Code(s): E78.5 - HYPERLIPIDEMIA, UNSPECIFIED Status: Chronic (3) HTN (hypertension) Code(s): I10 - ESSENTIAL (PRIMARY) HYPERTENSION Status: Chronic Qualifiers: (4) Recurrent lung adenocarcinoma Code(s): C34.90 - MALIGNANT NEOPLASM OF UNSP PART OF UNSP BRONCHUS OR LUNG Status: Chronic Qualifiers: (5) Anemia due to acute blood loss Code(s): D62 - ACUTE POSTHEMORRHAGIC ANEMIA Status: Resolved - Plan likely palliative care eventually hospice, is not a candidate for further chemo/ immunotherapy h/h slowly trending down, transfuse if Hb drops to less than 7g is on high dose fentanyl TTS plus mental health nurse, lyrica 50mg bid on high dose lopressor, will reduce it to 25mg xl daily nebs prn, oxygen by nc will likely need home oxygen likely has orthostasis will formally check in am prognosis guarded
--- NOTE | 2018-11-09 20:07 | PRG ---
DATE OF SERVICE: 11/09/2018 SUBJECTIVE: Mr. Marin another stool today, black, large. He did not have a bowel movement yesterday. He has continued to require blood transfusion about every other day. His hemoglobin dropped down from 7.9 yesterday afternoon, 8.4 yesterday morning to 7.6 this afternoon, was stable at 7.6 to 12.27. He had 5 units of blood with the last being on the 30, going to get one more unit this evening. He has been informed apparently by Oncology that he is not a candidate for chemotherapy more as it is not working. Palliative Care has seen him. He is trying to decide on DNR status. He is not coughing up any blood. He is having no red blood per rectum. MEDICATIONS: He continues on his Protonix 40 mg p.o. daily. He is also on pain medications. He is on no NSAIDs. OBJECTIVE: VITAL SIGNS: Blood pressure 111/51, pulse 97, O2 saturation 94% on 2 L, temperature 98.6. LUNGS: Coarse breath sounds in bases with a cough, deep. ABDOMEN: Soft and nontender. EXTREMITIES: Without clubbing, cyanosis, or edema. LABORATORY STUDIES: Hemoglobin 7.6. BUN and creatinine are 9 and 0.5. ASSESSMENT AND PLAN: Ongoing transfusion requirements. I really do think this is probably more dilutional. He does not have any overt signs of elevated BUN to indicate lot of blood in the gastrointestinal tract. However, he did have a duodenal ulcer. We do the scope with his intermittent black stools persisting and trickling blood count. This could be just old blood clearing and some anemia related to his malignancy. However, we will set him up for a second-look endoscopy tomorrow as he did have an ulcer, which was treated endoscopically on 11/03. We will also put him back on IV Protonix. Job ID: [id number]
[2018-11-09] MEDS: Pantoprazole 40 MG VIAL IVP SCH (20:14)
[2018-11-10 05:48] LABS: Hemoglobin 8.7 g/dL (14.0-18.0)
[2018-11-10 06:14] LABS: Anion Gap 12 mmol/L (10-20); BUN (Urea Nitrogen) 7 mg/dL (8.4-25.7); Calc. Creatinine Clearance 118 mL/min (70-130); Calcium 8.9 mg/dL (7.8-10.44); Carbon Dioxide 25 mmol/L (23-31); Chloride 104 mmol/L (98-107); Estimated GFR-MDRD Greater than 90; Glucose 107 mg/dL (80-115); Magnesium 1.9 mg/dL (1.6-2.6); Potassium 4.1 mmol/L (3.5-5.1); Sodium 137 mmol/L (136-145)
[2018-11-10] MEDS: Pantoprazole 40 MG VIAL IVP SCH ×3 (08:17→20:06)
[2018-11-10] MEDS: Calcium Carbonate 600 MG TAB PO SCH (08:18)
[2018-11-10] MEDS: Pregabalin 50 MG CAP PO SCH ×2 (08:19→20:05)
[2018-11-10] MEDS: Potassium Chloride 20 MEQ TAB PO SCH (08:19)
[2018-11-10] MEDS: Furosemide 20 MG TAB PO SCH (08:19)
[2018-11-10] MEDS ORDERED: PROPOFOL 200 MG/20 ML VIAL ONE (10:22)
--- NOTE | 2018-11-10 16:07 | PRG ---
DATE OF SERVICE: 11/10/2018 SERVICE: Pulmonary Medicine. INTERVAL HISTORY: The patient is doing fine from respiratory standpoint. Breathing comfortably. His respirations are essentially at baseline. He continues to have a cough, but is not bring much up in the way of sputum. Otherwise, he is returning to his usual state of health. OBJECTIVE: VITAL SIGNS: Afebrile, pulse 92, blood pressure 102/57, respirations 20, saturations 93% on 4 L nasal cannula. HEENT: Normocephalic and atraumatic. Sclerae are white. Conjunctivae are pink. Oral mucosa is moist without lesions. LUNGS: Decent air entry. There is no prolonged expiratory phase or wheezing present. HEART: Normal rate, regular. ABDOMEN: Soft, nontender, nondistended. Bowel sounds are positive. MUSCULOSKELETAL: No cyanosis or clubbing. No pitting in the bilateral lower extremities. NEUROLOGIC: Grossly nonfocal. LABORATORY DATA: hemoglobin 8.7 and stable. INR 1.1. Basic metabolic profile is completely unremarkable, otherwise with a normal potassium of 4.1. Magnesium has improved to 1.9. ASSESSMENT: 1. Acute blood loss anemia. 2. Peptic ulcer disease. 3. Stage IV lung cancer, no longer candidate for chemotherapy based on functional status. 4. Chronic obstructive pulmonary disease without current exacerbation. 5. Chronic hypoxic respiratory failure. DISCUSSION AND PLAN: The patient is doing fine from breathing standpoint. At this point, he has no further requirements for inpatient Pulmonary or Critical Care opinion. I will sign off. Home inhalers can be continued on discharge. Job ID: [id number] [facility]
[2018-11-10] MEDS ORDERED: Midazolam HCl 2 mg/2 ml Vial ONE (16:55)
[2018-11-10] MEDS ORDERED: Ketamine 50 MG/ML (10ML VIAL) ONE (16:55)
[2018-11-10] MEDS ORDERED: Ondansetron HCl/PF 4 MG/2 ML Vial IVP PRN (17:17)
[2018-11-10] MEDS ORDERED: Promethazine HCl 25 MG/ML VIAL SLOW IVP PRN (17:17)
[2018-11-10] MEDS ORDERED: Promethazine HCl 25 MG/ML VIAL IM PRN (17:17)
[2018-11-10] MEDS: fentaNYL 100 mcg/hour Patch TD SCH (17:56)
--- NOTE | 2018-11-10 18:27 | PDOC.HOSPP ---
- Subjective Subjective: is npo for repeat egd no mabel bleeding per rectum is comfortable when he wear oxygen - Objective Vital Signs & Weight: Vital Signs (12 hours) Temp Pulse Resp BP Pulse Ox Pulse Ox Pulse Ox 11/10/18 14:09 85 L 97 11/10/18 11:52 98.5 F 104 H 22 H 107/63 97 11/10/18 08:00 98.6 F 109 H 24 H 100/59 L 93 L Pulse Ox 11/10/18 14:09 94 L 11/10/18 11:52 11/10/18 08:00 Weight Admit Weight 154 lb 8 oz Weight 153 lb 3.2 oz Most Recent Monitor Data Heart Rate from ECG 121 NIBP 135/61 NIBP BP-Mean 85 Respiration from ECG 23 SpO2 88 I&O: 11/09/18 11/10/18 11/11/18 06:59 06:59 06:59 Intake Total 1590 1450 Output Total 1280 1275 Balance 310 175 Result Diagrams: 11/10/18 05:28 11/10/18 05:28 ROS - Review of Systems All systems: All other ROS were reviewed and found negative. - Medication Medications: Active Medications Generic Name Dose Route Start Last Admin Trade Name Freq PRN Reason Stop Dose Admin Acetaminophen 650 mg 11/01/18 15:50 11/09/18 13:07 Tylenol PO 650 mg Q4H PRN Administration Headache/Fever/Mild Pain (1-3) Albuterol/Ipratropium 3 ml 11/01/18 15:50 11/09/18 22:56 Duoneb NEB 3 ml [id number] PRN Administration SOB &/or Wheezing Calcium Carbonate 600 mg 11/05/18 09:00 11/10/18 08:18 Caltrate PO Not Given DAILY MARYBETH Fentanyl 100 mcg 11/07/18 12:45 11/10/18 17:56 Duragesic TD 100 mcg Q3D MARYBETH Administration Furosemide 40 mg 11/05/18 09:00 11/10/18 08:19 Lasix PO Not Given DAILY MARYBETH Guaifenesin 200 mg 11/01/18 15:50 11/06/18 05:33 Robitussin Sf PO 200 mg Q4H PRN Administration Cough Fentanyl Citrate 2,000 mcg/ 100 mls @ 0 mls/hr 11/04/18 16:42 11/08/18 19:38 Sodium Chloride IV 100 mls INF PRN Administration Pain As Directed Metoprolol Succinate 25 mg 11/10/18 09:00 11/10/18 05:42 Toprol Xl PO 25 mg DAILY MARYBETH Administration Pantoprazole Sodium 40 mg 11/09/18 21:00 11/10/18 08:17 Protonix IVP 40 mg Q12HR MARYBETH Administration Potassium Chloride 20 meq 11/04/18 09:00 11/10/18 08:19 K-Dur PO Not Given DAILY MARYBETH Pregabalin 50 mg 11/07/18 21:00 11/10/18 08:19 Lyrica PO Not Given BID MARYBETH Sodium Chloride 10 ml 11/01/18 21:00 11/10/18 08:19 Flush - Normal Saline IVF 10 ml Q12HR MARYBETH Administration - Exam awake alert, ill appearing Eye: PERRL, anicteric sclera ENT: no oropharyngeal lesions, moist mucosa Neck: supple, no JVD Heart: RRR, no gallops Respiratory: no rales, rhonchi Gastrointestinal: soft, non-tender, normal bowel sounds Extremities: no clubbing, no edema Neurological: CN's grossly intact, no focal deficits Psychiatric: normal affect, A&O x 3 Hosp A/P (1) GI bleed Code(s): K92.2 - GASTROINTESTINAL HEMORRHAGE, UNSPECIFIED Status: Acute Qualifiers: GI bleed type/associated pathology: unspecified gastrointestinal hemorrhage type Qualified Code(s): K92.2 - Gastrointestinal hemorrhage, unspecified (2) Dyslipidemia Code(s): E78.5 - HYPERLIPIDEMIA, UNSPECIFIED Status: Chronic (3) HTN (hypertension) Code(s): I10 - ESSENTIAL (PRIMARY) HYPERTENSION Status: Chronic Qualifiers: (4) Recurrent lung adenocarcinoma Code(s): C34.90 - MALIGNANT NEOPLASM OF UNSP PART OF UNSP BRONCHUS OR LUNG Status: Chronic Qualifiers: (5) Anemia due to acute blood loss Code(s): D62 - ACUTE POSTHEMORRHAGIC ANEMIA Status: Resolved - Plan for second look egd due to falling h/h no mabel bleeding will need home oxygen d/w patient about options for placement, he will talk to his daughters and let us know continue lopressor low dose, lyrica, fentanyl patch and 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
--- NOTE | 2018-11-10 21:56 | OP ---
DATE OF PROCEDURE: 11/10/2018 PROCEDURE: Esophagogastroduodenoscopy (diagnostic). INDICATION FOR PROCEDURE: Melena, anemia, prior history of duodenal ulcer intervened upon . DESCRIPTION OF PROCEDURE: After the risks and benefits of the procedure were explained to the patient including risks of bleeding, infection, perforation, reactions to anesthesia, aspiration and/or pain, informed consent was obtained. The patient was then taken to the endoscopy suite, where sedation was administered via propofol, ketamine, and anesthesia support. Once adequate sedation was achieved, the standard gastroscope was introduced into the mouth with intubation of the esophagus, stomach, and the proximal small intestines with the findings listed below. The patient did exhibit increased oxygen desaturation during the procedure as well as increased agitation preventing visualization of some of the mucosa during this procedure. Upon completion of the procedure, all equipment was removed from the patient, and he was transferred to PACU in satisfactory condition. FINDINGS: Esophagus: Normal-appearing mucosa was seen in the proximal calf and mid-esophagus. There were small patches of salmon-colored mucosa seen in the distal esophagus at the gastroesophageal junction and small erosions adjacent to these patches, but there was no evidence of overt ulceration, mass, lesion, or active/recent bleeding. No biopsies were taken from this region. Stomach: Normal-appearing mucosa was seen in the gastric cardia, fundus, body, greater curvature, antrum, and incisura. There was no evidence of erosions, ulcerations, mass, lesions, or active/recent bleeding. Limited views were obtained from the duodenum due to the increased patient's agitation and oxygen desaturation during the procedure. Normal-appearing mucosa was seen in the duodenal bulb and second portion of the duodenum. There was no evidence of erosions, ulcerations, mass, lesions, or active/recent bleeding. The previously described ulceration on the anterior wall of the duodenal bulb was not seen during this examination. IMPRESSION: 1. 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 2. Nonvisualization of the previously described duodenal bulb ulceration secondary to increased patient's agitation. 3. No evidence of active/recent bleeding seen during this examination. RECOMMENDATIONS: 1. We will continue to trend hemoglobin and hematocrit and transfuse as necessary to maintain hemoglobin and hematocrit of 7 and 21. 2. Continue to monitor clinically for signs of active GI bleeding. 3. We will continue pantoprazole 40 mg b.i.d. until seen as an outpatient in the GI Clinic. 4. If the patient continues to have a melenic-type stools and/or decrease in his hemoglobin and hematocrit, I will recommend a tagged red cell scan for further localization of possible GI bleeding and/or repeat upper endoscopy with deeper sedation for greater evaluation. 5. Would avoid any NSAIDs. Job ID: [id number]
[2018-11-11] MEDS: Diabetic Tussin 200 MG/10 ML UDCUP PO PRN ×2 (04:26→19:58)
[2018-11-11 05:58] LABS: Hemoglobin 8.1 g/dL (14.0-18.0)
[2018-11-11] MEDS: Pantoprazole 40 MG VIAL IVP SCH ×2 (08:21→20:00)
[2018-11-11] MEDS: Furosemide 20 MG TAB PO SCH (08:23)
[2018-11-11] MEDS: Pregabalin 50 MG CAP PO SCH ×2 (08:25→19:59)
[2018-11-11] MEDS: Potassium Chloride 20 MEQ TAB PO SCH (08:26)
[2018-11-11] MEDS: Calcium Carbonate 600 MG TAB PO SCH (08:26)
--- NOTE | 2018-11-11 12:34 | PDOC.HOSPP ---
- Subjective Subjective: no new complaints but wants to go home he says he has oxygen at home including concentrator etc, rolling bed and his house has no floors etc does not want placement or rehab ambulated with PT yesterday around 180ft - Objective Vital Signs & Weight: Vital Signs (12 hours) Temp Pulse Resp BP Pulse Ox 11/11/18 12:00 98.1 F 120 H 20 106/61 97 11/11/18 08:00 98.3 F 124 H 20 125/56 L 98 11/11/18 06:33 114 H 16 98 11/11/18 04:35 108 H 24 H 93 L 11/11/18 04:28 116 H 24 H 90 L 11/11/18 04:00 97.6 F 106 H 23 H 107/57 L 90 L Weight Admit Weight 154 lb 8 oz Weight 153 lb 3.2 oz Most Recent Monitor Data Heart Rate from ECG 121 NIBP 135/61 NIBP BP-Mean 85 Respiration from ECG 23 SpO2 88 I&O: 11/10/18 11/11/18 11/12/18 06:59 06:59 06:59 Intake Total 1450 650 360 Output Total 1275 200 Balance 175 450 360 Result Diagrams: 11/11/18 05:48 11/10/18 05:28 ROS - Review of Systems All systems: All other ROS were reviewed and found negative. - Medication Medications: Active Medications Generic Name Dose Route Start Last Admin Trade Name Freq PRN Reason Stop Dose Admin Acetaminophen 650 mg 11/01/18 15:50 11/09/18 13:07 Tylenol PO 650 mg Q4H PRN Administration Headache/Fever/Mild Pain (1-3) Hydrocodone Bitart/Acetaminophen 1 tab 11/09/18 12:03 11/10/18 20:05 [place] 10/325 PO 1 tab TIDPRN PRN Administration Moderate Pain (4-6) Albuterol/Ipratropium 3 ml 11/01/18 15:50 11/11/18 04:28 Duoneb NEB 3 ml [id number] PRN Administration SOB &/or Wheezing Albuterol/Ipratropium 3 ml 11/10/18 18:30 11/11/18 06:33 Duoneb NEB 3 ml TID-RT MARYBETH Administration Calcium Carbonate 600 mg 11/05/18 09:00 11/11/18 08:26 Caltrate PO 600 mg DAILY MARYBETH Administration Fentanyl 100 mcg 11/07/18 12:45 11/10/18 17:56 Duragesic TD 100 mcg Q3D MARYBETH Administration Furosemide 40 mg 11/05/18 09:00 11/11/18 08:23 Lasix PO 40 mg DAILY MARYBETH Administration Guaifenesin 200 mg 11/01/18 15:50 11/11/18 04:26 Robitussin Sf PO 200 mg Q4H PRN Administration Cough Metoprolol Succinate 25 mg 11/10/18 09:00 11/11/18 08:26 Toprol Xl PO 25 mg DAILY MARYBETH Administration Pantoprazole Sodium 40 mg 11/09/18 21:00 11/11/18 08:21 Protonix IVP 40 mg Q12HR MARYBETH Administration Potassium Chloride 20 meq 11/04/18 09:00 11/11/18 08:26 K-Dur PO 20 meq DAILY MARYBETH Administration Pregabalin 50 mg 11/07/18 21:00 11/11/18 08:25 Lyrica PO 50 mg BID MARYBETH Administration Sodium Chloride 10 ml 11/01/18 21:00 11/11/18 08:28 Flush - Normal Saline IVF 10 ml Q12HR MARYBETH Administration Sodium Chloride 10 ml 11/09/18 19:14 11/10/18 20:06 Flush - Normal Saline IVF 10 ml PRN PRN Administration Saline Flush - Exam NAD, awake alert Eye: PERRL, anicteric sclera ENT: no oropharyngeal lesions, moist mucosa Neck: supple, no JVD Heart: RRR, no murmur Respiratory: no wheezes, rhonchi Gastrointestinal: soft, non-tender, non-distended, normal bowel sounds Extremities: no cyanosis, no edema Skin: normal turgor, no rashes Neurological: CN's grossly intact, no focal deficits Psychiatric: normal affect, A&O x 3 Hosp A/P (1) GI bleed Code(s): K92.2 - GASTROINTESTINAL HEMORRHAGE, UNSPECIFIED Status: Resolved Qualifiers: GI bleed type/associated pathology: unspecified gastrointestinal hemorrhage type Qualified Code(s): K92.2 - Gastrointestinal hemorrhage, unspecified (2) Dyslipidemia Code(s): E78.5 - HYPERLIPIDEMIA, UNSPECIFIED Status: Chronic (3) HTN (hypertension) Code(s): I10 - ESSENTIAL (PRIMARY) HYPERTENSION Status: Chronic Qualifiers: (4) Recurrent lung adenocarcinoma Code(s): C34.90 - MALIGNANT NEOPLASM OF UNSP PART OF UNSP BRONCHUS OR LUNG Status: Chronic Qualifiers: (5) Anemia due to acute blood loss Code(s): D62 - ACUTE POSTHEMORRHAGIC ANEMIA Status: Resolved - Plan d/w daughter over phone, she wants him going when hospice is all set up I have informed what her father wanted this morning and he is oriented she will talk to him and convince to stay till hospice and home oxygen is set up. I have counselled him to go to a place closer to his children as his cancer might progress. [place] and says [place] neighbours help whenever he asks them to?. poor prognosis h/h is stable, is on protonix bid, may adv diet to solid diet as tolerated if ok with GI continue fentanyl tts, toprol xl, lyrica, nebs hemostable now
[2018-11-11] MEDS: HYDROcodone/Acetaminophen 10/325 mg Tablet PO PRN ×2 (12:52→19:59)
[2018-11-12] MEDS ORDERED: Acetaminophen 1,000 MG in Premix Bag 1 BAG IVPB SCH (04:30)
[2018-11-12] MEDS ORDERED: Vancomycin HCl 1 GM in Premix Bag 1 BAG IVPB SCH (04:45)
[2018-11-12] MEDS ORDERED: Adenosine 6 MG/2 ML VIAL ONE (05:00)
[2018-11-12] MEDS ORDERED: Piperacillin/Tazobactam 4.5 GM in Sodium Chloride 0.9% 100 ML IVPB SCH (05:00)
[2018-11-12] MEDS ORDERED: Midazolam HCl 2 mg/2 ml Vial SLOW IVP SCH (05:00)
[2018-11-12 05:02] LABS: #Basophils 0.1 thou/uL (0.0-0.2); #Eosinphils 0.1 thou/uL (0.0-0.7); #Monocytes 1.4 thou/uL (0.11-0.59); #Neutrophils 11.3 thou/uL (1.40-6.50); %Basophils 0.5 % (0.0-1.0); %Eosinophils 0.9 % (0.0-10.0); %Lymphocytes 6.9 % (21.0-51.0); %Monocytes 9.7 % (0.0-10.0); %Neutrophils 81.9 % (42.0-75.0); Hemoglobin 8.8 g/dL (14.0-18.0); Mean Corpuscular HGB CONC 32.6 g/dL (32.0-36.0); Mean Corpuscular Volume 92.1 fL (78.0-98.0); Mean Platelet Volume 6.5 fL (7.4-10.4); Platelet Count 381 thou/uL (130-400); RBC Distribution Width 15.4 % (11.5-14.5); Red Blood Cell (RBC) Count 2.93 mill/uL (4.70-6.10); White Blood Cell (WBC) Count 13.8 thou/uL (4.8-10.8)
[2018-11-12 05:19] LABS: Anion Gap 13 mmol/L (10-20); BUN (Urea Nitrogen) 5 mg/dL (8.4-25.7); Calc. Creatinine Clearance 116 mL/min (70-130); Calcium 8.7 mg/dL (7.8-10.44); Carbon Dioxide 24 mmol/L (23-31); Chloride 102 mmol/L (98-107); Estimated GFR-MDRD Greater than 90; Glucose 105 mg/dL (80-115); Potassium 4.3 mmol/L (3.5-5.1); Sodium 135 mmol/L (136-145)
[2018-11-12] MEDS ORDERED: Norepinephrine 8 MG in Dextrose 5% in Water 242 ML IVPB PRN (05:23)
[2018-11-12] MEDS ORDERED: Vasopressin 40 UNIT, Admixture Fee 1 EACH in Sodium Chloride 0.9% 100 ML IV SCH (05:30)
--- NOTE | 2018-11-12 05:58 | PDOC.EVN ---
Event Note - Event Note Event Note: Paged by RN pt has developed full blown sepsis picture with persistent high grade fever, PSVT with sustained HR in the 160-170, initially with stable blood pressure, later on developing hypotension, not responsive to adenosine/ cardioversion, symptoms have improved after fever has come down and aggressive IVF resuscitation, abt have been started, cultures ordered, will start vasopressors if needed. ICU have been consulted, there have been previous discussion about palliative care for lung cancer but as of now pt remains full code with full medical treatment.
--- NOTE | 2018-11-12 08:16 | RAD ---
EXAM: XR Chest 1 View PROVIDED CLINICAL HISTORY: Shortness of breath COMPARISON: 10/31/2018 FINDINGS: Material overlying the patient limits evaluation. Cardiac and mediastinal silhouette is not definitel y changed in appearance. Prominence of the pulmonary interstitium and superimposed airspace disease in the right midlung zone and left lower lung zone. No pleural fluid or pneumothorax apparent. Left-s ided implanted port appears stable. IMPRESSION: Right midlung zone and left lower lung zone airspace disease, which may reflect edema or infection. O ther etiologies are possible. Follow-up recommended.
[2018-11-12] MEDS: Calcium Carbonate 600 MG TAB PO SCH ×2 (09:26→10:29)
[2018-11-12] MEDS: Potassium Chloride 20 MEQ TAB PO SCH (09:27)
[2018-11-12] MEDS: Pregabalin 50 MG CAP PO SCH ×2 (10:22→20:55)
[2018-11-12] MEDS: Pantoprazole 40 MG VIAL IVP SCH ×2 (10:24→20:55)
[2018-11-12] MEDS ORDERED: Sodium Chloride 0.9% 1,000 ML IV SCH (11:30)
--- NOTE | 2018-11-12 11:42 | PDOC.HOSPP ---
- Subjective Subjective: lethargic but awakens easily, not fully oriented no sob or chest pain is seen moving extremities - Objective Vital Signs & Weight: Vital Signs (12 hours) Temp Temp Pulse Pulse Pulse Pulse Pulse 11/12/18 07:59 11/12/18 07:56 97 11/12/18 07:00 98.7 F 11/12/18 06:00 11/12/18 05:30 99.0 F 11/12/18 04:23 100.3 F H 160 H 164 H 170 H 172 H 11/12/18 00:00 98.2 F 112 H Pulse Pulse Pulse Pulse Pulse Pulse Pulse 11/12/18 07:59 11/12/18 07:56 11/12/18 07:00 11/12/18 06:00 11/12/18 05:30 11/12/18 04:23 164 H 162 H 160 H 166 H 160 H 150 H 154 H 11/12/18 00:00 Pulse Pulse Pulse Pulse Pulse Pulse Pulse 11/12/18 07:59 11/12/18 07:56 11/12/18 07:00 11/12/18 06:00 11/12/18 05:30 11/12/18 04:23 149 H 152 H 154 H 156 H 145 H 154 H 147 H 11/12/18 00:00 Pulse Pulse Pulse Resp Resp Resp Resp 11/12/18 07:59 11/12/18 07:56 19 11/12/18 07:00 11/12/18 06:00 11/12/18 05:30 11/12/18 04:23 150 H 142 H 134 H 24 H 20 24 H 11/12/18 00:00 24 H Resp Resp Resp Resp Resp Resp Resp 11/12/18 07:59 11/12/18 07:56 11/12/18 07:00 11/12/18 06:00 11/12/18 05:30 11/12/18 04:23 24 H 22 H 16 20 16 20 22 H 11/12/18 00:00 BP BP BP BP BP BP BP 11/12/18 07:59 11/12/18 07:56 11/12/18 07:00 11/12/18 06:00 11/12/18 05:30 11/12/18 04:23 110/60 108/57 L 113/62 116/56 L 106/58 L 105/61 104/63 11/12/18 00:00 BP BP BP BP BP BP BP 11/12/18 07:59 11/12/18 07:56 11/12/18 07:00 11/12/18 06:00 11/12/18 05:30 11/12/18 04:23 99/65 88/53 L 92/52 L 94/55 L 93/53 L 100/58 L 74/45 L 11/12/18 00:00 BP BP BP BP BP BP BP 11/12/18 07:59 11/12/18 07:56 11/12/18 07:00 11/12/18 06:00 11/12/18 05:30 11/12/18 04:23 82/51 L 103/56 L 89/50 L 86/47 L 86/48 L 91/50 L 90/50 L 11/12/18 00:00 BP Pulse Ox Pulse Ox Pulse Ox Pulse Ox Pulse Ox Pulse Ox 11/12/18 07:59 100 11/12/18 07:56 100 11/12/18 07:00 11/12/18 06:00 100 11/12/18 05:30 11/12/18 04:23 92 L 93 L 90 L 85 L 77 L 11/12/18 00:00 120/66 91 L Pulse Ox Pulse Ox Pulse Ox Pulse Ox Pulse Ox Pulse Ox Pulse Ox 11/12/18 07:59 11/12/18 07:56 11/12/18 07:00 11/12/18 06:00 11/12/18 05:30 11/12/18 04:23 96 97 97 97 97 98 96 11/12/18 00:00 Pulse Ox Pulse Ox Pulse Ox Pulse Ox Pulse Ox Pulse Ox 11/12/18 07:59 11/12/18 07:56 11/12/18 07:00 11/12/18 06:00 11/12/18 05:30 11/12/18 04:23 99 100 100 100 100 100 11/12/18 00:00 Weight Admit Weight 154 lb 8 oz Weight 153 lb 3.2 oz Most Recent Monitor Data Heart Rate from ECG 98 NIBP 99/69 NIBP BP-Mean 79 Respiration from ECG 25 SpO2 100 I&O: 11/11/18 11/12/18 11/13/18 06:59 06:59 06:59 Intake Total 650 1540 460 Output Total 200 800 700 Balance 450 740 -240 Result Diagrams: 11/12/18 04:50 11/12/18 04:50 ROS - Review of Systems All systems: All other ROS were reviewed and found negative. - Medication Medications: Active Medications Generic Name Dose Route Start Last Admin Trade Name Freq PRN Reason Stop Dose Admin Acetaminophen 650 mg 11/01/18 15:50 11/09/18 13:07 Tylenol PO 650 mg Q4H PRN Administration Headache/Fever/Mild Pain (1-3) Hydrocodone Bitart/Acetaminophen 1 tab 11/09/18 12:03 11/10/18 20:05 [place] 10/325 PO 1 tab TIDPRN PRN Administration Moderate Pain (4-6) Hydrocodone Bitart/Acetaminophen 2 tab 11/11/18 01:11 11/11/18 19:59 [place] 10/325 PO 2 tab TIDPRN PRN Administration Severe Pain (7-10) Albuterol/Ipratropium 3 ml 11/01/18 15:50 11/11/18 04:28 Duoneb NEB 3 ml [id number] PRN Administration SOB &/or Wheezing Albuterol/Ipratropium 3 ml 11/10/18 18:30 11/12/18 07:56 Duoneb NEB 3 ml TID-RT MARYBETH Administration Calcium Carbonate 600 mg 11/05/18 09:00 11/12/18 10:29 Caltrate PO 600 mg DAILY MARYBETH Administration Fentanyl 100 mcg 11/07/18 12:45 11/10/18 17:56 Duragesic TD 100 mcg Q3D MARYBETH Administration Guaifenesin 200 mg 11/01/18 15:50 11/11/18 19:58 Robitussin Sf PO 200 mg Q4H PRN Administration Cough Loratadine 10 mg 11/01/18 15:50 11/11/18 19:58 Claritin PO 10 mg DAILYPRN PRN Administration Sinus Symptoms Metoprolol Succinate 25 mg 11/10/18 09:00 11/12/18 10:29 Toprol Xl PO 25 mg DAILY MARYBETH Administration Pantoprazole Sodium 40 mg 11/09/18 21:00 11/12/18 10:24 Protonix IVP 40 mg Q12HR MARYBETH Administration Pregabalin 50 mg 11/07/18 21:00 11/12/18 10:22 Lyrica PO 50 mg BID MARYBETH Administration Sodium Chloride 10 ml 11/01/18 21:00 11/12/18 11:34 Flush - Normal Saline IVF 10 ml Q12HR MARYBETH Administration Sodium Chloride 10 ml 11/09/18 19:14 11/11/18 20:00 Flush - Normal Saline IVF 10 ml PRN PRN Administration Saline Flush - Exam Eye: PERRL, anicteric sclera ENT: no oropharyngeal lesions, dry oral mucosa Neck: supple, no JVD Heart: RRR, no rubs Respiratory: no wheezes, no rales Gastrointestinal: soft, non-tender, non-distended, normal bowel sounds Extremities: no cyanosis, no edema Neurological: CN's grossly intact, no focal deficits Musculoskeletal: normal tone, normal strength Hosp A/P (1) GI bleed Code(s): K92.2 - GASTROINTESTINAL HEMORRHAGE, UNSPECIFIED Status: Resolved Qualifiers: GI bleed type/associated pathology: unspecified gastrointestinal hemorrhage type Qualified Code(s): K92.2 - Gastrointestinal hemorrhage, unspecified (2) Dyslipidemia Code(s): E78.5 - HYPERLIPIDEMIA, UNSPECIFIED Status: Chronic (3) HTN (hypertension) Code(s): I10 - ESSENTIAL (PRIMARY) HYPERTENSION Status: Chronic Qualifiers: (4) Recurrent lung adenocarcinoma Code(s): C34.90 - MALIGNANT NEOPLASM OF UNSP PART OF UNSP BRONCHUS OR LUNG Status: Chronic Qualifiers: (5) Anemia due to acute blood loss Code(s): D62 - ACUTE POSTHEMORRHAGIC ANEMIA Status: Resolved (6) Acute on chronic respiratory failure Code(s): J96.20 - ACUTE AND CHR RESP FAILURE, UNSP W HYPOXIA OR HYPERCAPNIA Status: Acute (7) SVT (supraventricular tachycardia) Code(s): I47.1 - SUPRAVENTRICULAR TACHYCARDIA Status: Suspected - Plan hemostable this am d/w daughter over phone and gave updates, she wants him to be DNAR has advanced lung cancer and is not a candidate for further chemotherapy per onc due to poor functional status continue nebs, low dose toprol xl, fentanyl tts and lyrica encourage po intake may try ventimask 28% as he tries to pull nasal tongs away leading to low spo2, sinus tach and confusion. Hospice is being set up at home for tomorrow, will wait and see how he does by tomorrow cognitively/amb? etc
[2018-11-12] MEDS: HYDROcodone/Acetaminophen 10/325 mg Tablet PO PRN (12:22)
[2018-11-12] MEDS: Sodium Chloride 0.9% 1,000 ML IV SCH ×2 (12:48→21:00)
[2018-11-12] MEDS ORDERED: Vancomycin HCl 1.5 GM in Sodium Chloride 0.9% 250 ML 300 ML IVPB SCH (14:00)
[2018-11-12] MEDS: Morphine 10 MG/ML VIAL SLOW IVP PRN ×3 (14:01→23:39)
--- NOTE | 2018-11-12 19:07 | PRG ---
DATE OF SERVICE: 11/12/2018 SUBJECTIVE: Mr. Marin is a 67-year-old gentleman, who is scheduled to go home with hospice. Apparently, he developed SVT. He is a do not resuscitate patient, although apparently this was not entered in the medical records. He received cardioversion last night after code was called. He is transferred to critical care unit. PAST MEDICAL HISTORY: Has been reviewed. FAMILY HISTORY: Has been reviewed. REVIEW OF SYSTEMS: Otherwise negative except for complaints of right hip pain, which felt to be secondary to metastatic disease. He has a fentanyl patch in place. PHYSICAL EXAMINATION: GENERAL: He can answer questions. He was alert and oriented. He is in no distress with the exception of his hip discomfort. VITAL SIGNS: Blood pressure 116/54, heart rate is 115, respiratory rates in the 20s. LUNGS: Clear. HEART: Regular rhythm. ABDOMEN: Soft. EXTREMITIES: Without asymmetry. IMAGING STUDIES: Raymond x-ray done last night, it is hazy at the right base. IMPRESSION: 1. Stage IV lung cancer. 2. Extreme deconditioning. 3. Chronic obstructive pulmonary disease. 4. Supraventricular tachycardia, requiring cardioversion after adenosine failed last night. 5. Anemia. I have added p.r.n. morphine to control his pain. He is now do not resuscitate patient. He can be transferred out of the Critical Care Unit in my opinion. Job ID: [id number] MTDD
[2018-11-12] MEDS: Acetaminophen 325 MG TAB PO PRN (21:46)
[2018-11-13] MEDS: Sodium Chloride 0.9% 1,000 ML IV SCH (06:43)
[2018-11-13] MEDS: Morphine 10 MG/ML VIAL SLOW IVP PRN ×3 (07:21→20:43)
[2018-11-13 08:53] LABS: #Eosinphils 0.3 thou/uL (0.0-0.7); #Lymphocytes 1.2 thou/uL (1.20-3.40); #Monocytes 1.2 thou/uL (0.11-0.59); #Neutrophils 12.2 thou/uL (1.40-6.50); %Basophils 0.3 % (0.0-1.0); %Eosinophils 1.7 % (0.0-10.0); %Lymphocytes 8.2 % (21.0-51.0); %Monocytes 7.8 % (0.0-10.0); Hemoglobin 8.5 g/dL (14.0-18.0); Mean Corpuscular HGB CONC 32.1 g/dL (32.0-36.0); Mean Corpuscular Hemoglobin 29.8 pg (27.0-31.0); Mean Corpuscular Volume 92.6 fL (78.0-98.0); Mean Platelet Volume 6.7 fL (7.4-10.4); Platelet Count 340 thou/uL (130-400); RBC Distribution Width 15.5 % (11.5-14.5); Red Blood Cell (RBC) Count 2.87 mill/uL (4.70-6.10); White Blood Cell (WBC) Count 14.8 thou/uL (4.8-10.8)
[2018-11-13 09:16] LABS: Anion Gap 13 mmol/L (10-20); BUN (Urea Nitrogen) 6 mg/dL (8.4-25.7); Calc. Creatinine Clearance 124 mL/min (70-130); Calcium 8.6 mg/dL (7.8-10.44); Carbon Dioxide 22 mmol/L (23-31); Chloride 106 mmol/L (98-107); Estimated GFR-MDRD Greater than 90; Glucose 102 mg/dL (80-115); Potassium 3.8 mmol/L (3.5-5.1); Sodium 137 mmol/L (136-145)
[2018-11-13] MEDS: Pregabalin 50 MG CAP PO SCH ×2 (09:24→20:34)
[2018-11-13] MEDS: Pantoprazole 40 MG VIAL IVP SCH ×2 (09:29→20:36)
[2018-11-13] MEDS: Calcium Carbonate 600 MG TAB PO SCH (09:30)
[2018-11-13] MEDS: Metoprolol Tartrate 5 MG/5 ML VIAL ONE ×2 (10:30→10:38)
[2018-11-13] MEDS ORDERED: Metoprolol Tartrate 5 MG/5 ML VIAL IVP SCH ×2 (10:45)
[2018-11-13] MEDS ORDERED: Metoprolol Tartrate 50 MG TAB PO SCH ×2 (11:30→21:00)
[2018-11-13] MEDS: fentaNYL 100 mcg/hour Patch TD SCH (12:04)
[2018-11-13] MEDS ORDERED: Lorazepam 2 MG/ML VIAL ONE (13:02)
--- NOTE | 2018-11-13 13:45 | PDOC.PALPN ---
Palliative Progress Note - Subjective Patient with increase in shortness of breath, labored respirations, air hunger. DNAR, to be transitioned to hospice. - Objective Vital Signs: Vital Signs - Most Recent Temp Pulse Resp BP Pulse Ox 98.0 F 149 H 41 H 110/60 99 11/13/18 04:00 11/13/18 07:15 11/13/18 07:15 11/12/18 04:23 11/13/18 11:22 - Physical Exam Constitutional: moderate distress HEENT: moist MMs, EOMI Deviation from normal: labored respirations Deviation from normal: tachycardia Deviation from normal: anxious Deviation from normal: Pallord - Assessment (1) Palliative care encounter Code(s): Z51.5 - ENCOUNTER FOR PALLIATIVE CARE Current Visit: Yes Status: Acute (2) Upper GI bleed Code(s): K92.2 - GASTROINTESTINAL HEMORRHAGE, UNSPECIFIED Current Visit: Yes Status: Acute (3) Recurrent lung adenocarcinoma Code(s): C34.90 - MALIGNANT NEOPLASM OF UNSP PART OF UNSP BRONCHUS OR LUNG Current Visit: Yes Status: Chronic Qualifiers: (4) Symptomatic anemia Code(s): D64.9 - ANEMIA, UNSPECIFIED Current Visit: Yes Status: Resolved - Plan Plan: *Patient daughter hoping to take Mr Marin home on hospice/visiting marie *Ativan 1 mg IVP now and PRN for anxiety related to compromised respiratory status *Overall goal of patient was to return home and be with his dog Salina. May reconsider GIP secondary to elevated respiratory support needed to provide comfort measures. [60] minutes spent on this encounter with >50% of the time in counseling and coordination of care.
--- NOTE | 2018-11-13 13:53 | PDOC.HOSPP ---
- Subjective Subjective: has palpitations, no sob, is on high flow oxygen lethargic but awakens easily - Objective Vital Signs & Weight: Vital Signs (12 hours) Temp Pulse Resp Pulse Ox 11/13/18 11:22 99 11/13/18 08:16 96 11/13/18 08:00 90 L 11/13/18 07:17 91 L 11/13/18 07:15 149 H 41 H 86 L 11/13/18 04:26 95 11/13/18 04:00 98.0 F Weight Admit Weight 154 lb 8 oz Weight 153 lb 3.2 oz Most Recent Monitor Data Heart Rate from ECG 120 NIBP 93/50 NIBP BP-Mean 64 Respiration from ECG 27 SpO2 96 I&O: 11/12/18 11/13/18 11/14/18 06:59 06:59 06:59 Intake Total 1540 3723 Output Total 800 3220 975 Balance 740 503 975 Result Diagrams: 11/13/18 08:41 11/13/18 08:41 ROS - Review of Systems All systems: All other ROS were reviewed and found negative. - Medication Medications: Active Medications Generic Name Dose Route Start Last Admin Trade Name Freq PRN Reason Stop Dose Admin Acetaminophen 650 mg 11/01/18 15:50 11/12/18 21:46 Tylenol PO 650 mg Q4H PRN Administration Headache/Fever/Mild Pain (1-3) Hydrocodone Bitart/Acetaminophen 1 tab 11/09/18 12:03 11/10/18 20:05 [place] 10/325 PO 1 tab TIDPRN PRN Administration Moderate Pain (4-6) Hydrocodone Bitart/Acetaminophen 2 tab 11/11/18 01:11 11/12/18 12:22 [place] 10/325 PO 2 tab TIDPRN PRN Administration Severe Pain (7-10) Albuterol/Ipratropium 3 ml 11/01/18 15:50 11/12/18 23:32 Duoneb NEB 3 ml V2PV-VF PRN Administration SOB &/or Wheezing Albuterol/Ipratropium 3 ml 11/10/18 18:30 11/13/18 07:15 Duoneb NEB 3 ml TID-RT MARYBETH Administration Calcium Carbonate 600 mg 11/05/18 09:00 11/13/18 09:30 Caltrate PO 600 mg DAILY MARYBETH Administration Fentanyl 100 mcg 11/07/18 12:45 11/13/18 12:04 Duragesic TD 100 mcg Q3D MARYBETH Administration Guaifenesin 200 mg 11/01/18 15:50 11/11/18 19:58 Robitussin Sf PO 200 mg Q4H PRN Administration Cough Loratadine 10 mg 11/01/18 15:50 11/11/18 19:58 Claritin PO 10 mg DAILYPRN PRN Administration Sinus Symptoms Morphine Sulfate 10 mg 11/12/18 11:29 11/13/18 12:29 Morphine SLOW IVP 10 mg Q1HR PRN Administration Breakthrough Pain Pantoprazole Sodium 40 mg 11/09/18 21:00 11/13/18 09:29 Protonix IVP 40 mg Q12HR MARYBETH Administration Pregabalin 50 mg 11/07/18 21:00 11/13/18 09:24 Lyrica PO 50 mg BID MARYBETH Administration Sodium Chloride 10 ml 11/01/18 21:00 11/13/18 09:29 Flush - Normal Saline IVF 10 ml Q12HR MARYBETH Administration Sodium Chloride 10 ml 11/09/18 19:14 11/11/18 20:00 Flush - Normal Saline IVF 10 ml PRN PRN Administration Saline Flush - Exam NAD, ill appearing Eye: PERRL, anicteric sclera ENT: no oropharyngeal lesions, dry oral mucosa Neck: supple, no JVD Heart: RRR, no gallops (tachycardic+ in 140's) Respiratory: no wheezes, rhonchi Gastrointestinal: soft, non-tender, normal bowel sounds Extremities: no cyanosis, no edema Skin: normal turgor, no rashes Neurological: CN's grossly intact, no focal deficits Hosp A/P (1) GI bleed Code(s): K92.2 - GASTROINTESTINAL HEMORRHAGE, UNSPECIFIED Status: Resolved Qualifiers: GI bleed type/associated pathology: unspecified gastrointestinal hemorrhage type Qualified Code(s): K92.2 - Gastrointestinal hemorrhage, unspecified (2) Dyslipidemia Code(s): E78.5 - HYPERLIPIDEMIA, UNSPECIFIED Status: Chronic (3) HTN (hypertension) Code(s): I10 - ESSENTIAL (PRIMARY) HYPERTENSION Status: Chronic Qualifiers: (4) Recurrent lung adenocarcinoma Code(s): C34.90 - MALIGNANT NEOPLASM OF UNSP PART OF UNSP BRONCHUS OR LUNG Status: Chronic Qualifiers: (5) Anemia due to acute blood loss Code(s): D62 - ACUTE POSTHEMORRHAGIC ANEMIA Status: Resolved (6) Acute on chronic respiratory failure Code(s): J96.20 - ACUTE AND CHR RESP FAILURE, UNSP W HYPOXIA OR HYPERCAPNIA Status: Acute (7) SVT (supraventricular tachycardia) Code(s): I47.1 - SUPRAVENTRICULAR TACHYCARDIA Status: Acute - Plan hemostable lopressor 10mg iv x1, start lopressor 50mg bid pt was on lopressor 100mg bid at home, was reduced to 25mg daily due to hypotension prognosis guarded, may be a candidate for inpt hospice he had hard time to sit in chair and get back into bed yesterday had walked 150ft on 2nd with PT august tx to med floor if take him with high flow oxygen is DNAR
--- NOTE | 2018-11-13 15:14 | PDOC.MOPN ---
Interval History: Somnolent, pain controlled with fentanyl patch - Vital Signs Vital Signs: Vital Signs (12 hours) Temp Pulse Resp Pulse Ox 11/13/18 13:53 118 H 26 H 99 11/13/18 11:22 99 11/13/18 08:16 96 11/13/18 08:00 90 L 11/13/18 07:17 91 L 11/13/18 07:15 149 H 41 H 86 L 11/13/18 04:26 95 11/13/18 04:00 98.0 F Weight Admit Weight 154 lb 8 oz Weight 153 lb 3.2 oz Most Recent Monitor Data Heart Rate from ECG 115 NIBP 102/51 NIBP BP-Mean 68 Respiration from ECG 27 SpO2 94 - Physical Exam General: Other HEENT: PERRLA Lungs: Other (diminished) Cardiovascular: Other (tachycardia) Abdomen: Normal bowel sounds, Soft Extremities: No edema Skin: No rashes Neurological: Other (sleepy but arouseable) - Labs Result Diagrams: 11/13/18 08:41 11/13/18 08:41 Lab results: Laboratory Results - last 24 hr 11/13/18 08:41: WBC 14.8 H, RBC 2.87 L, Hgb 8.5 L, Hct 26.5 L, MCV 92.6, MCH 29.8, MCHC 32.1, RDW 15.5 H, Plt Count 340, MPV 6.7 L, Neutrophils % 82.0 H, Lymphocytes % 8.2 L, Monocytes % 7.8, Eosinophils % 1.7, Basophils % 0.3, Neutrophils # 12.2 H, Lymphocytes # 1.2, Monocytes # 1.2 H, Eosinophils # 0.3, Basophils # 0.0 11/13/18 08:41: Sodium 137, Potassium 3.8, Chloride 106, Carbon Dioxide 22 L, Anion Gap 13, BUN 6 L, Creatinine 0.56 L, Estimated GFR (MDRD) Greater than 90 , Glucose 102, Calcium 8.6 A/P - Problem (1) Lung cancer metastatic to bone Current Visit: Yes Code(s): C34.90 - MALIGNANT NEOPLASM OF UNSP PART OF UNSP BRONCHUS OR LUNG; C79.51 - SECONDARY MALIGNANT NEOPLASM OF BONE Status: Chronic (2) Acute on chronic respiratory failure Current Visit: Yes Code(s): J96.20 - ACUTE AND CHR RESP FAILURE, UNSP W HYPOXIA OR HYPERCAPNIA Status: Acute (3) Back pain, chronic Current Visit: Yes Code(s): M54.9 - DORSALGIA, UNSPECIFIED; G89.29 - OTHER CHRONIC PAIN Status: Chronic - Plan Plan: continue supportive care with pain meds, O2 Family working with PCT for hospice May be a candidate for inpatient hospice
--- NOTE | 2018-11-13 15:37 | EKG ---
Test Reason : Blood Pressure : / mmHG Vent. Rate : 123 BPM Atrial Rate : 123 BPM P-R Int : 148 ms QRS Dur : 084 ms QT Int : 324 ms P-R-T Axes : 059 -26 041 degrees QTc Int : 463 ms Sinus tachycardia Leftward axis Otherwise normal ECG When compared with ECG of 12-NOV-2018 04:16, (Unconfirmed) Nonspecific T wave abnormality no longer evident in Lateral leads Confirmed by THOMAS WINTERS, SCheryl ([id number]) on 11/13/2018 3:37:25 PM Referred By: FOX Confirmed By:DR. Paul GUZMAN MD
[2018-11-13] MEDS ORDERED: predniSONE 20 MG TAB PO SCH (17:00)
[2018-11-13] MEDS ORDERED: Furosemide 40 MG/4 ML VIAL SLOW IVP SCH (17:00)
--- NOTE | 2018-11-13 17:11 | PRG ---
DATE OF SERVICE: 11/13/2018 SERVICE: Pulmonary Medicine. INTERVAL HISTORY: The patient is doing poorly from Respiratory standpoint. His oxygen requirements have increased dramatically. He has no complaints of fevers or chills. There were no significant overnight events. The plan is for him to go home with the care of hospice today. Otherwise, there has been no interval change to his condition. PHYSICAL EXAMINATION: VITAL SIGNS: Afebrile, currently with a T-max overnight of 100.8, pulse 120, blood pressure 92/52, respirations 26, saturation 100% on 40% FiO2 delivered via the high-flow nasal cannula. HEENT: Normocephalic and atraumatic. Sclerae white. Conjunctivae pink. Oral mucosa is moist without lesions. LUNGS: Decent air entry. There is a prolonged expiratory phase and crackles. A polyphonic wheezing is noted. HEART: Normal rate and regular. ABDOMEN: Soft, nontender, nondistended. Bowel sounds are positive. MUSCULOSKELETAL: No cyanosis or clubbing. There is no pitting in the bilateral lower extremities. NEUROLOGIC: Grossly nonfocal. LABORATORY DATA: WBC 14.8, hemoglobin 8.5, platelets 340,000. INR 1.1. Basic metabolic profile is otherwise unremarkable. ASSESSMENT: 1. Acute on chronic hypoxic respiratory failure. 2. Acute blood loss anemia. 3. Peptic ulcer disease. 4. Stage IV lung cancer, widely metastatic. 5. Chronic obstructive pulmonary disease with current exacerbation. DISCUSSION AND PLAN: Once resources are set up, the patient will be transitioned home under the care of hospice. Pulmonary will continue to follow, if the patient remains inhouse for the time being. Please call with additional questions or concerns through time. Job ID: [id number]
[2018-11-13] MEDS ORDERED: Bisacodyl 10 MG SUPP PR PRN (19:56)
[2018-11-13 20:58] VITALS: BP 113/69
[2018-11-14] MEDS: Lorazepam 2 MG/ML VIAL SLOW IVP PRN ×2 (00:44→04:15)
[2018-11-14] MEDS: Morphine 10 MG/ML VIAL SLOW IVP PRN ×2 (03:39→05:27)
[2018-11-14] MEDS ORDERED: Lorazepam 2 MG/ML VIAL SLOW IVP PRN (06:21)
[2018-11-14] MEDS ORDERED: predniSONE 20 MG TAB PO SCH (08:00)
[2018-11-14 08:38] VITALS: TEMP 101.2
[2018-11-14] MEDS ORDERED: Senokot S 8.6-50 MG TAB PO SCH (09:00)
--- NOTE | 2018-11-15 12:03 | DIS ---
DATE OF ADMISSION: 11/01/2018 DATE OF DISCHARGE: 11/14/2018 PRIMARY CARE PROVIDER: Dr. Senait Parker. DISCHARGE DIAGNOSES: 1. Symptomatic anemia. 2. Gastric antral ulcers. 3. Duodenal bulb ulcer. 4. Duodenitis. 5. Chronic back pain. 6. Right hip pain. 7. Hypoxic respiratory failure. 8. Symptomatic supraventricular tachycardia. CONSULTATIONS DURING THIS HOSPITALIZATION: Gastroenterology, Dr. Peña; Pulmonary and Critical Care Medicine, Dr. Locke; Oncology, Dr. Kaufman; Anesthesiology, Dr. Landeros. HOSPITAL COURSE: Mr. Marin is a pleasant 67-year-old gentleman, who was admitted to [facility] on November 01, 2018 for symptomatic anemia. Please refer to Dr. Cline's history and physical note dated November 01, 2018, for further details. He was seen by Gastroenterology Service. He underwent EGD on November 03, 2018, which showed erosion of gastroesophageal junction, benign appearing, multiple small ulcers in the antrum of stomach consistent with nonsteroidal anti-inflammatory drugs effect; duodenal bulb ulcer, 5 mm in size with visible vessel cauterized with 7-Yakut heater probe for control of bleeding and duodenitis of the second and third portions, likely nonsteroidal anti-inflammatory drugs related. Biopsies were taken during the EGD. Duodenal biopsy showed unremarkable duodenal mucosa and no evidence of celiac sprue. Stomach biopsy showed unremarkable antral type mucosa. No H pylori organisms were identified. The patient complained of right hip pain, severe. X-rays of the right hip showed mild right hip osteoarthritis. He also had a CT scan of the right hip, which did not show any evidence of osseous metastatic disease. He has a known history of lung cancer. He was seen by Palliative Care Team. On November 12, he was found to be in symptomatic supraventricular tachycardia. He was monitored in the critical care unit. His family wanted comfort measures only. Initial plan was for hospice at home. The plan was later changed to inpatient hospice. He was discharged to inpatient hospice on November 14, 2018. Many thanks for allowing me to participate in your patient's care. Please feel free to contact me with any questions or concerns. CONDITION OF PATIENT ON THE DAY OF DISCHARGE: I assessed Mr. Marin prior to discharge to inpatient hospice. He is resting comfortably, nonverbal. S1 and S2 are heard, tachycardic and regular. Peripheral pulses palpable. DISCHARGE DESTINATION: Inpatient hospice. Total amount of time spent coordinating this discharge: 32 minutes. Job ID: [id number]
== END 2018-11-14 08:49 | disposition home health service (06) | DRG 377 ==
LOC: ERS 11:27 → ERHOLD 15:19 → IMCU/EMU 19:25 → T4-B 11-09 22:30 → IMCU/EMU 11-12 04:49 → CCU 11-12 05:31
PROVIDERS: ADMIT Internal Medicine; ATTEND Internal Medicine
PROC: 0DB68ZX Excision of Stomach, Via Natural or Artificial Opening Endoscopic, Diagnostic (ICD-10-PCS; principal; 2018-11-03)
PROC: 0D598ZZ Destruction of Duodenum, Via Natural or Artificial Opening Endoscopic (ICD-10-PCS; 2018-11-03)
PROC: 0DB98ZX Excision of Duodenum, Via Natural or Artificial Opening Endoscopic, Diagnostic (ICD-10-PCS; 2018-11-03)
PROC: 30233N1 Transfusion of Nonautologous Red Blood Cells into Peripheral Vein, Percutaneous Approach (ICD-10-PCS; 2018-11-07)
PROC: 0DJ08ZZ Inspection of Upper Intestinal Tract, Via Natural or Artificial Opening Endoscopic (ICD-10-PCS; 2018-11-10)
DX: K26.4 Chronic or unspecified duodenal ulcer with hemorrhage (principal); J96.21 Acute and chronic respiratory failure with hypoxia; D62 Acute posthemorrhagic anemia; C34.91 Malignant neoplasm of unspecified part of right bronchus or lung; I47.1 Supraventricular tachycardia; J44.1 Chronic obstructive pulmonary disease with (acute) exacerbation; C79.51 Secondary malignant neoplasm of bone; Z51.5 Encounter for palliative care; Z66 Do not resuscitate; I10 Essential (primary) hypertension; E78.5 Hyperlipidemia, unspecified; G89.29 Other chronic pain; K29.80 Duodenitis without bleeding; F32.9 Major depressive disorder, single episode, unspecified; F41.9 Anxiety disorder, unspecified; T39.395A Adverse effect of other nonsteroidal anti-inflammatory drugs [NSAID], initial encounter; M25.551 Pain in right hip; Z87.891 Personal history of nicotine dependence; Z79.899 Other long term (current) drug therapy; Z98.890 Other specified postprocedural states
CPT/HCPCS: 36415; 36430; 71045; 74177; 80048; 80053; 81001; 81003; 82550; 83605; 83690; 83735; 84100; 84484; 85014; 85018; 85025; 85610; 85730; 86850; 86900; 86901; 87040; 88305; 88312; 93005; 93010; 94640; 94760; 96365; 96366; 96375; 96376; C9113; J0131; J0153; J1940; J2060; J2250; J2270; J2405; J2543; J2704; J3010; J3370; J3475; J3480; J3490; J7050; J7070; J7620; P9016; Q9966; Q9967

== ENCOUNTER 2018-11-14 08:43 | Inpatient (IN) | payer OTHER ==
[2018-11-14] MEDS ORDERED: Hyoscyamine Sulfate SL 0.125 mg Tablet SL PRN (10:02)
[2018-11-14] MEDS ORDERED: Haloperidol Lactate 5 MG/ML VIAL SLOW IVP PRN (10:04)
[2018-11-14] MEDS ORDERED: diphenhydrAMINE 50 MG/ML VIAL IVP PRN (10:04)
[2018-11-14] MEDS ORDERED: Zolpidem Tartrate 5 MG TAB PO PRN (10:04)
[2018-11-14] MEDS ORDERED: Lorazepam 2 MG/ML VIAL SLOW IVP PRN (10:04)
[2018-11-14] MEDS ORDERED: Sodium Chloride 0.9% 1,000 ML IV SCH (10:04)
[2018-11-14] MEDS ORDERED: Ondansetron PF 4 MG/2 ML Vial IVP PRN (10:04)
[2018-11-14] MEDS ORDERED: Bisacodyl 10 MG SUPP PR PRN (10:12)
[2018-11-14] MEDS: Morphine 10 MG/ML VIAL SLOW IVP PRN ×6 (10:38→23:19)
[2018-11-14 12:46] VITALS: BMI 21.0
[2018-11-14] MEDS: Lorazepam 2 MG/ML VIAL SLOW IVP PRN ×2 (18:52→23:19)
[2018-11-15] MEDS ORDERED: Scopolamine 1.5 mg/72 hour Patch TOP SCH (01:00)
[2018-11-15] MEDS: Lorazepam 2 MG/ML VIAL SLOW IVP PRN ×3 (02:46→07:03)
[2018-11-15] MEDS: Morphine 10 MG/ML VIAL SLOW IVP PRN ×3 (02:46→07:03)
[2018-11-15 07:19] VITALS: BP 85/49; TEMP 104.1
[2018-11-15] MEDS ORDERED: Senokot 8.6 MG TAB PO SCH (09:00)
--- NOTE | 2018-11-16 10:54 | DIS ---
DATE OF ADMISSION: 11/14/2018 DATE OF DISCHARGE: 11/15/2018 ADMITTING DIAGNOSIS: Lung cancer, adenocarcinoma with unknown metastasis. DISCHARGE DIAGNOSES: 1. Lung cancer, adenocarcinoma with unknown metastasis. 2. . HOSPITAL COURSE: The patient was a 67-year-old male, who came in with lung cancer on to the inpatient hospice service. He had been admitted to the hospital on 11/01 with an upper GI bleed after having been recently placed on chemotherapy. He had discontinued the chemo found that it was not helping his cancer. He had gone home and then came back to the hospital and admitted on the GIP Service. The patient peacefully in bed, no pain, had oxygen going at that time. Pain was controlled with fentanyl patch, and body was taken to the home of family's choice. Job ID: [id number]
[2018-11-16] MEDS ORDERED: fentaNYL 100 mcg/hour Patch TD SCH (12:00)
== END 2018-11-15 08:40 | disposition expired | DRG 951 ==
LOC: CCU 08:51 → ONC 15:53
PROVIDERS: ADMIT Family Medicine; ATTEND Family Medicine
PROC: 30233N1 Transfusion of Nonautologous Red Blood Cells into Peripheral Vein, Percutaneous Approach (ICD-10-PCS; principal; 2018-11-14)
DX: Z51.5 Encounter for palliative care (principal); K92.0 Hematemesis; D62 Acute posthemorrhagic anemia; C34.11 Malignant neoplasm of upper lobe, right bronchus or lung; K92.1 Melena; C34.90 Malignant neoplasm of unspecified part of unspecified bronchus or lung; C79.9 Secondary malignant neoplasm of unspecified site; G89.29 Other chronic pain; I10 Essential (primary) hypertension; E78.5 Hyperlipidemia, unspecified; F32.9 Major depressive disorder, single episode, unspecified; R00.0 Tachycardia, unspecified; F41.9 Anxiety disorder, unspecified; Z90.2 Acquired absence of lung [part of]; Z87.891 Personal history of nicotine dependence; Z88.8 Allergy status to other drugs, medicaments and biological substances; Z79.899 Other long term (current) drug therapy
CPT/HCPCS: J2060; J2270